=== PATIENT | male | born 1955 | race Caucasian/White ===

== ENCOUNTER → 2016-10-23 | Outpatient (CLI) | payer BC ==
[~2016-10-23] MED LIST: ASPCH81; CEPH500C PO; MULT-506 PO; OMEG10007 PO; TRAM-10 PO; [UNRECOGNIZED DRUG - REMARK]; [UNRECOGNIZED DRUG - REMARK]
--- NOTE | 2016-10-23 17:24 | DIAGNOSTIC IMAGING REPORT ---
RIGHT LOWER EXTREMITY VENOUS DOPPLER HISTORY: R60.0 Leg edema right [id number] Right COMPARISON STUDY: None. FINDINGS: There is normal compressibility, flow, and augmentation within the right lower extremity deep venous system. Complex popliteal cyst extending into the proximal calf which measures 8.3 x 1.4 x 3.8 cm. IMPRESSION: No DVT within the right lower extremity. Complex popliteal cyst. Electronically signed by: Moses Ham M.D. 10/23/2016 5:21 PM Dictated Date/Time: 10/23/2016 5:03 PM
== END | disposition home or self-care (01) ==
LOC: C.ULTR 16:17
PROVIDERS: ATTEND Physician Assistant Medical
DX: R60.0 Localized edema (principal); M71.21 Synovial cyst of popliteal space [Baker], right knee

== ENCOUNTER → 2017-04-03 | Outpatient (CLI) | payer BC ==
[2017-04-03 09:44] LABS: BASO % 0.4 %; BASO ABS # 0.02 K/uL (0-0.2); COMPLETE YES; EOS % 1.7 %; HEMATOCRIT 44.6 % (42-52); IG% 0.2 %; LYMPH % 18.7 %; LYMPH ABS # 0.98 K/uL (1.2-3.4); MEAN CELL VOLUME 90.5 fL (80-100); MEAN CORPUSCULAR HEMOGLOBIN 29.8 pg (25-34); MEAN PLATELET VOLUME 9.6 fL (7.4-10.4); PLATELET COUNT 212 K/uL (130-400); RED BLOOD COUNT 4.93 M/uL (4.7-6.1); WHITE BLOOD COUNT 5.23 K/uL (4.8-10.8)
[2017-04-03 10:07] LABS: ALT/SGPT 24 U/L (12-78); BLOOD UREA NITROGEN 20 mg/dl (7-18); BUN/CREATININE RATIO 20.3 (10-20); CARBON DIOXIDE 27 mmol/L (21-32); CHLORIDE 105 mmol/L (98-107); CHOLESTEROL 165 mg/dl (0-200); GLUCOSE 86 mg/dl (70-99); POTASSIUM 4.2 mmol/L (3.5-5.1); SODIUM 139 mmol/L (136-145)
[2017-04-03 10:13] LABS: ALB/GLOB RATIO 1.2 (0.9-2); ALKALINE PHOSPHATASE 82 U/L (45-117); AST/SGOT 16 U/L (15-37); CHOLESTEROL/HDL RATIO 2.8; HDL CHOLESTEROL 58 mg/dl; LDL CHOLESTEROL CALCULATED 89 mg/dl; TRIGLYCERIDES 91 mg/dl (0-150); VERY LOW DENSITY LIPOPROT CALC 18 mg/dl
== END | disposition home or self-care (01) ==
LOC: C.LAB 06:51
PROVIDERS: ATTEND Internal Medicine
DX: G47.33 Obstructive sleep apnea (adult) (pediatric) (principal); Z11.59 Encounter for screening for other viral diseases

== ENCOUNTER → 2017-10-23 | Outpatient (CLI) | payer OTHER, BC ==
--- NOTE | 2017-10-23 08:58 | DIAGNOSTIC IMAGING REPORT ---
R HUMERUS MIN 2 VIEWS ROUTINE CLINICAL HISTORY: 62 years-old Male presenting with RIGHT HUMERUS PAIN. TECHNIQUE: Frontal lateral views the right humerus were obtained. COMPARISON: None. FINDINGS: Glenohumeral and elbow joints grossly congruent. Osteophytosis at the inferior humeral head. No acute fracture or malalignment. Focal irregularity of the proximal humeral metadiaphysis. There is suggestion of a focal cortical lucency of mid cortical thickening. No radiographic soft tissue abnormality. IMPRESSION: Focal irregularity of the proximal metadiaphysis of the right humerus. 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 Differential considerations include posttraumatic deformity, aneurysmal bone cyst, Law sarcoma or metastatic lesion. This requires follow-up. Potential further evaluation with contrast-enhanced MR could be considered as clinically appropriate. Electronically signed by: Sagar Bartlett M.D. 10/23/2017 8:57 AM Dictated Date/Time: 10/23/2017 8:49 AM
== END | disposition home or self-care (01) ==
LOC: C.RAD1850 08:37
PROVIDERS: ATTEND Nurse Practitioner Adult Health
DX: M79.601 Pain in right arm (principal)

== ENCOUNTER 2020-03-23 21:09 | Inpatient (IN) ==
[2020-03-23] MEDS ORDERED: ACETAMINOPHEN 500 MG TAB PO STA (21:39)
[2020-03-23] MEDS ORDERED: MoRPHine SULFATE 4 MG/ML 1 ML CARP\\VIAL IV STA ×3 (22:13→23:37)
[2020-03-23] MEDS ORDERED: ONDANSETRON INJ 2 MG/ML 2 ML VIAL IV STA (22:13)
[2020-03-23 22:25] LABS: Appearance Urine Cloudy (Clear); Bacteria Urine Automated Negative (Negative); Bilirubin Urine Negative (Negative); Blood Urine 3+ (Negative); Color Urine Dark Yellow; Glucose Urine UA Negative (Negative); Ketones Urine Negative (Negative); Leukocyte Esterase Urine 1+ (Negative); Nitrite Urine Negative (Negative); Protein Urine 1+ (Negative); Specific Gravity Urine 1.021 (1.000-1.030); Urobilinogen Urine Negative (Negative)
[2020-03-23 22:31] LABS: Basophils # (auto) 0.02 K/uL (0-0.2); Basophils % (auto) 0.2 %; Eosinophils # (auto) 0.04 K/uL (0-0.5); Eosinophils % (auto) 0.4 %; Hematocrit (blood only) 39.6 % (42-52); Hemoglobin 13.9 g/dL (14.0-18.0); Immature Granulocytes # (auto) 0.03 K/uL (0.00-0.02); Immature Granulocytes % (auto) 0.3 %; Lymphocytes # (auto) 0.53 K/uL (1.2-3.4); Lymphocytes % (auto) 5.8 %; Mean Corpuscular Hemoglobin 30.8 pg (25-34); Mean Corpuscular Hgb Conc 35.1 g/dL (32-36); Mean Corpuscular Volume 87.6 fL (80-100); Monocytes # (auto) 0.79 K/uL (0.11-0.59); Monocytes % (auto) 8.7 %; Neutrophils # (auto) 7.71 K/uL (1.4-6.5); Neutrophils % (auto) 84.6 %; Platelet Count 282 K/uL (130-400); RDW Coefficient of Variation 13.5 % (11.5-14.5); RDW Standard Deviation 43.3 fL (36.4-46.3); Red Blood Count 4.52 M/uL (4.7-6.1); White Blood Count 9.12 K/uL (4.8-10.8)
[2020-03-23 22:47] LABS: Albumin Level 3.2 gm/dl (3.4-5.0); BUN Creatinine Ratio 15.4 (10-20); Calcium 9.3 mg/dl (8.5-10.1); Creatinine Clr Calc Pharmacy 79.9 ml/min; Est GFR (African American) 82.4; Est GFR (Non-African American) 71.1; Potassium 3.9 mmol/L (3.5-5.1)
[2020-03-23 22:50] LABS: Albumin Globulin Ratio 0.8 (0.9-2); Bilirubin,Total 0.9 mg/dl (0.2-1); Globulin 4.1 gm/dl (2.5-4.0); Total Protein 7.3 gm/dl (6.4-8.2)
[2020-03-23] MEDS ORDERED: cefTRIAXone SODIUM 1,000 MG/50 ML BAG IV STA (23:09)
[2020-03-23] MEDS ORDERED: SODIUM CHLORIDE 0.9% 1000ML 500 ML IV ONE (23:09)
[2020-03-23] MEDS ORDERED: IOVERSOL 100ml IV ONE (23:27)
[2020-03-24] MEDS ORDERED: MAGNESIUM HYDROXIDE SUSP 30 ML UDC PO PRN (01:21)
[2020-03-24] MEDS ORDERED: ONDANSETRON HCL 4 MG PO PRN (01:21)
[2020-03-24] MEDS ORDERED: DICLOFENAC SOD 1% GEL 100 GM TUBE EXT PRN (01:21)
[2020-03-24] MEDS ORDERED: DOCUSATE SODIUM/SENNA 50/8.6MG TAB PO SCH (01:21)
--- NOTE | 2020-03-24 01:22 | History & Physical Report ---
Date of Service March 24, 2020 Assessment & Plan (1) Ureterolithiasis: * Patient with large 8 mm LEFT UPJ stone w/ associated hydronephrosis. * Requiring escalating doses of narcotics in the emergency department. * Urinalysis appears more consistent with blood from stone versus traumatic Silvestre insertion. Received one-time dose of Rocephin in the emergency department. Will not continue antibiotics at this point. * Given the proximal nature of stone and patient's hydronephrosis with a ssociated pain, appreciate nephrology consultation for further guidance. * Continue pain management with acetaminophen and morphine as needed. * Will continue with IV fluids at 80 mL/hr at this time. * Continue with Flomax for added benefit of nephrolithiasis as well. * Silvestre catheter in place for strict I&Os. (2) Renal colic: * P.o. acetaminophen and PRN morphine as needed. (3) Acute urinary retention: * Silvestre catheter in place at this time. * Continue Flomax as tolerated. (4) Hydronephrosis: * Continue with appropriate pain management. * Continue with IV fluids. * Appreciate nephrology consultation. (5) Recent cerebrovascular accident (CVA): * Recent CVA with LEFT-sided hemiparesis currently receiving therapy at [facility]. * Will add PT OT to continue with patient's current goals of care. * Patient without special diet at this time (i.e. no restrictions on textures). * Patient was placed on aspirin and Plavix. * Will hold aspirin Plavix as well as Lovenox this morning (03/24) pending urologic evaluation. (6) Left-sided weakness: * As discussed, continue with PT OT for ongoing goals of care. History of Present Illness Primary Care Provider: [facility] Patient is a 65-year-old male with a recent past medical history of CVA on 03/07/2020 for which she was initially seen at [facility]. He received TPA and was subsequently flown to [facility] for further stroke evaluation as well as concerns for decreased pulses in his LEFT lower extremity. Patient reports that he was placed on a heparin drip for a few days and did have return of pulses and no intervention was felt necessary at that time. The patient had an approximately 5-day hospitalization where he was then transferred to [facility] for rehabilitation. He states that his Silvestre catheter had been removed at the time of discharge from [facility]. He states that he has been having some difficulty with voiding and was placed on Flomax [facility]. This was discontinued for a few days as the patient was noting some orthostatic-like symptoms during physical therapy. He did have return of difficulty with voiding and was placed back on Flomax. Yesterday, the patient was complaining of bladder pressure and inability to void. They did attempt to place a Silvestre catheter for separate times which did cause the patient to moderate amount of pain. This afternoon, the patient noticed increasing pain to the LEFT-sided flank area. This prompted transfer to the emergency department for further evaluation and management. Upon evaluation in the emergency department, the patient is awake, alert, and oriented. He states that his pain is greatly improved after administration of morphine. He reports that while at [facility], he has been told that he has been doing better, but states that "I do not see it". He does admit that he has been doing somewhat better with attempted ambulation utilizing a walker. He reports that his weakness persists in the LEFT upper extremity. He is able to lift his LEFT lower leg off the bed which is an improvement. Patient states that he has no issues with eating or drinking, specifically he is not on a special diet for this. Patient reports no prior history of kidney stones or similar pain in the past. He states that prior to CVA, he was only on a prescribed NSAID, Effexor, and atorvastatin. Patient currently denies any headaches, dizziness, lightheadedness, chest pain, palpitations, shortness of breath, nausea, vomiting, fevers, chills, or worsening extremity weakness. Allergies Allergy/AdvReac Type Severity Reaction Status Date / Time escitalopram [From Lexapro] AdvReac Drowsy Verified 03/23/20 22:35 paroxetine [From Paxil] AdvReac Drowsy Verified 03/23/20 22:35 Home Medications Home Medications Medication Instructions Recorded Confirmed Type omega 3-uon-bmv-fish oil [Fish Oil] 1 cap PO QAM 09/16/18 03/23/20 History acetaminophen [Tylenol] 650 mg PO Q4 PRN 03/23/20 03/23/20 History ascorbic acid (vitamin C) [Vitamin 500 mg PO DAILY 03/23/20 03/23/20 History C] aspirin [Aspir-81] 81 mg PO DAILY 03/23/20 03/23/20 History atorvastatin 40 mg PO HS 03/23/20 03/23/20 History clopidogrel [Plavix] 75 mg PO DAILY 03/23/20 03/23/20 History diclofenac sodium [Voltaren] 2 g TOPICAL QID PRN 03/23/20 03/23/20 History docusate sodium 100 mg PO BID 03/23/20 03/23/20 History enoxaparin [Lovenox] 40 mg SUBCUT DAILY 03/23/20 03/23/20 History lidocaine 1 patch TOPICAL DAILY 03/23/20 03/23/20 History lidocaine HCl [Lidocaine Viscous] 5 ml TOPICAL ACHS 03/23/20 03/23/20 History magnesium hydroxide [Milk of 30 ml PO DAILY PRN 03/23/20 03/23/20 History Magnesia] mecobal-levomefolat Ca-B6 phos 1 tab PO DAILY 03/23/20 03/23/20 History [Foltanx] ondansetron HCl 4 mg PO Q8H PRN 03/23/20 03/23/20 History pantoprazole 40 mg PO DAILY 03/23/20 03/23/20 History polyethylene glycol 3350 [Miralax] 17 g PO DAILY 03/23/20 03/23/20 History sennosides-docusate sodium 1 tab-cap PO .QLUNCH 03/23/20 03/23/20 History [Senokot-S] tamsulosin [Flomax] 0.4 mg PO DAILY 03/23/20 03/23/20 History venlafaxine 150 mg PO DAILY 03/23/20 03/23/20 History Past Med/Surg History Medical History Anxiety Arthritis, multiple joint involvement Depression Hyperlipidemia Hyperlipidemia Osteoarthritis Sleep apnea CPAP Surgical History H/O arthroscopic knee surgery with medial meniscus repair H/O hand surgery LEFT INDEX FINGER (TENDON REPAIR) History of colonoscopy 2013 and 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 2014 - Tubular Adenoma. 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 All else were negative. Physical Exam Physical Exam: VITAL SIGNS - Vital signs and nursing notes were reviewed. GENERAL - 65-year-old male appearing his stated age who is in no acute distress. Communicates well with provider and answers questions appropriately. HEAD - NC/AT. EYES - PERRL with EOMI bilaterally. Sclera anicteric. Palpebral conjunctiva pink and moist with no injection noted. EARS - No deformities of external structures noted on gross examination bilaterally. NOSE - Midline and without cyanosis. No epistaxis or purulent drainage noted. MOUTH/OROPHARYNX - Without perioral cyanosis. Buccal mucosa pink and moist and without leukoplakia. NECK - Neck with FROM. Supple to palpation. No nuchal rigidity. LUNGS - Chest wall symmetric without accessory muscle use, intercostals retractions, or central cyanosis. Normal vesicular breath sounds CTA B/L. No wheezes, rales, or rhonchi appreciated. CARDIAC - RRR with S1/S2. No murmur, rubs, or gallops appreciated. ABDOMEN - Abdominal contour flat without pulsations or visible masses. BS normoactive all four quadrants. No tenderness to palpation appreciated throughout. No guarding. No Rebound Tenderness. No palpable masses, hepatosplenomegaly, or ascites noted. EXTREMITIES - No clubbing or peripheral cyanosis. decreased DP pulse on the LEFT. Decreased strength in the LEFT lower extremity when compared to right. Flaccid paralysis of the LEFT upper extremity. No pretibial edema present. +3/5 radial pulses palpated throughout. NEUROLOGIC -LEFT upper extremity flaccid paralysis. Weakness of the LEFT lower extremity. Persistent LEFT-sided facial droop. Recent CVA. PSYCH - A&Ox3 and cooperates fully with examiner. Pt is very pleasant and interacts well with examiner. Results & Data Results & Data ([facility]) Vital Signs (Past 12 Hours) Vital Signs Temp Pulse Resp BP Pulse Ox 03/24/20 00:00 97 H 20 150/94 H 95 03/23/20 23:34 101 H 16 157/106 H 94 03/23/20 22:21 92 03/23/20 22:20 94 H 19 142/89 H 92 03/23/20 21:20 36.9 C 107 H 18 147/113 H 94 Code Status & VTE Plan VTE Prophylaxis Plan VTE Prophylaxis will be ordered: Yes Supervising Physician Co-Signing Physician Notes Attending addendum: I have physically seen this patient, have supervised the medical residents activities, and agree with the H&P unless as otherwise noted. Assessment and Plan: Obstructing 8 mm left UPJ stone/left hydro-ureteronephrosis- N.p.o. except meds Continue Silvestre catheter Ceftriaxone 1 g IV daily Continue Flomax Acetaminophen 650 mg p.o. every 6 hours mild pain or temperature Morphine IV as needed severe pain Hold aspirin and Plavix. Consult nephrology CVA/left-sided hemiparesis- Patient has been at [facility] getting rehab. We will consult PT/OT while patient is here. Temporarily of aspirin and Plavix on hold Remainder of orders and notations as noted PG Care Time/CCT Total # of Minutes Spent Total Time Spent with Patient: Total time spent is greater than 50% in coordination of care (as documented) at patient's floor/unit and/or counseling patient: Coding Level of Care Code 47200 Initial Inpt Care Lvl 3 Diagnoses Ureterolithiasis N20.1 Renal colic N23 Acute urinary retention R33.8 Hydronephrosis Q62.11 Hydronephrosis type: with ureteropelvic junction obstruction Recent cerebrovascular accident (CVA) Z86.73 Left-sided weakness R53.1 Time Spent (min) 45 (1) Hydronephrosis Hydronephrosis type: with ureteropelvic junction obstruction Qualified Code(s): Q62.11 - Congenital occlusion of ureteropelvic junction
--- NOTE | 2020-03-24 01:34 | Emergency Department Note ---
History of Present Illness General Chief complaint: Unable to Void Stated complaint: abd pain / encompass Time Seen by Provider: 03/23/20 21:27 History of Present Illness Maximum Pain Intensity: 3 This 65-year-old presents to the ER complaining of unable to urinate Location: Bladder Quality: Uncomfortable Severity: Moderate Duration: Today Timing: Today Context: group home could not get the Silvestre and sent the patient in Modifying factors: better with nothing; worse with palpation Patient had his Silvestre removed this morning. Has not been able to urinate. Patient well examined and developed back pain. Patient denies chest pain, dyspnea, fevers, vomiting, diarrhea. Patient had a stroke and is currently in rehab. He has left-sided weakness unchanged. Home Medications Home Medications Medication Instructions Recorded Confirmed Type omega 8-taj-qjs-fish oil [Fish Oil] 1 cap PO QAM 09/16/18 03/23/20 History acetaminophen [Tylenol] 650 mg PO Q4 PRN 03/23/20 03/23/20 History ascorbic acid (vitamin C) [Vitamin 500 mg PO DAILY 03/23/20 03/23/20 History C] aspirin [Aspir-81] 81 mg PO DAILY 03/23/20 03/23/20 History atorvastatin 40 mg PO HS 03/23/20 03/23/20 History clopidogrel [Plavix] 75 mg PO DAILY 03/23/20 03/23/20 History diclofenac sodium [Voltaren] 2 g TOPICAL QID PRN 03/23/20 03/23/20 History docusate sodium 100 mg PO BID 03/23/20 03/23/20 History enoxaparin [Lovenox] 40 mg SUBCUT DAILY 03/23/20 03/23/20 History lidocaine 1 patch TOPICAL DAILY 03/23/20 03/23/20 History lidocaine HCl [Lidocaine Viscous] 5 ml TOPICAL ACHS 03/23/20 03/23/20 History magnesium hydroxide [Milk of 30 ml PO DAILY PRN 03/23/20 03/23/20 History Magnesia] mecobal-levomefolat Ca-B6 phos 1 tab PO DAILY 03/23/20 03/23/20 History [Foltanx] ondansetron HCl 4 mg PO Q8H PRN 03/23/20 03/23/20 History pantoprazole 40 mg PO DAILY 03/23/20 03/23/20 History polyethylene glycol 3350 [Miralax] 17 g PO DAILY 03/23/20 03/23/20 History sennosides-docusate sodium 1 tab-cap PO .QLUNCH 03/23/20 03/23/20 History [Senokot-S] tamsulosin [Flomax] 0.4 mg PO DAILY 03/23/20 03/23/20 History venlafaxine 150 mg PO DAILY 03/23/20 03/23/20 History Allergies Allergy/AdvReac Type Severity Reaction Status Date / Time escitalopram [From Lexapro] AdvReac Drowsy Verified 03/23/20 22:35 paroxetine [From Paxil] AdvReac Drowsy Verified 03/23/20 22:35 Past Med/Surg History Medical History Anxiety Arthritis, multiple joint involvement Depression Hyperlipidemia Hyperlipidemia Osteoarthritis Sleep apnea CPAP Surgical History H/O arthroscopic knee surgery with medial meniscus repair H/O hand surgery LEFT INDEX FINGER (TENDON REPAIR) History of colonoscopy 2013 and 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 2014 - Tubular Adenoma. History of repair of rotator cuff RT History of tooth extraction S/P foot surgery right-05/06/2019 Family History Son Type 1 diabetes Mother Breast cancer Dyslipidemia Father Myocardial infarction Stroke Ischemic dilated cardiomyopathy Brother Hypertension Denies family history of Ovarian cancer Prostate cancer Colorectal cancer Social History Smoking Status: Former smoker Second Hand Exposure: No; Hx Alcohol Use: Yes Alcohol type: beer Hx Substance Use: No Preferred Language: Cymraes Communication Ability: Effective Visual Impairment: No Limitations Hearing Ability: Normal Data Visualization Developer Required: No Beliefs That Will Affect Care: None marital status: Current Living Situation: Spouse current occupational status: retired Feels Safe at Home: Yes caffeine: Yes (coffee 1 per day soda 1 per day.) during the past year weight has: remained stable Dental Care, Regularly: Yes Physical Activity Frequency: Does not Exercise Seatbelt Use: always Sunscreen Use: No Review of Systems A total of 10 systems reviewed and were otherwise negative Physical Exam Vital Signs Vital Signs - 24 hr 03/23/20 21:20 03/23/20 22:20 03/23/20 22:21 Temperature 36.9 C Temperature Source Oral Pulse Rate 107 H 94 H Pulse Rate from SpO2 Sensor 93 H Respiratory Rate 18 19 Respiratory Depth Normal Blood Pressure 147/113 H 142/89 H Blood Pressure Mean 124 110 Pulse Oximetry 94 92 92 Oxygen Delivery Method Room Air Room Air Room Air Oxygen Flow Rate Sepsis Recent Fever Within 48 Hours No Sepsis New/Unexplained Change in Mental Status N/A Sepsis Action Taken by Nursing No Action Required 03/23/20 23:34 03/24/20 00:00 Temperature Temperature Source Pulse Rate 101 H 97 H Pulse Rate from SpO2 Sensor 101 H 95 H Respiratory Rate 16 20 Respiratory Depth Blood Pressure 157/106 H 150/94 H Blood Pressure Mean 116 109 Pulse Oximetry 94 95 Oxygen Delivery Method Room Air Nasal Cannula Oxygen Flow Rate 2 Sepsis Recent Fever Within 48 Hours Sepsis New/Unexplained Change in Mental Status Sepsis Action Taken by Nursing VITALS: Vitals are noted on the nurse's note and reviewed by myself. Vital signs stable. GENERAL: Pleasant male who appears uncomfortable, in no acute distress, nondiaphoretic, well-developed well-nourished. SKIN: Capillary reflex less than 2 seconds. HEENT: Normocephalic. PERRLA. EOMI. Nares patent. Mucous membranes moist. Neck is supple without nuchal rigidity. HEART: Regular rate and rhythm LUNGS: Clear to auscultation bilaterally without wheezes, rales or rhonchi. No retractions or accessory muscle use. ABDOMEN: Positive bowel sounds x 4. Normal tympanic percussion. Soft, distended bladder, nontender, without masses or organomegaly. Decker sign nega tive. No guarding or rebound tenderness. No CVA tenderness MUSCULOSKELETAL: No gross musculoskeletal defects. NEURO: Patient was alert and oriented to person place and time. No focal neurological deficits. Course Administered Medications Discontinued Medications Acetaminophen (Acetaminophen 500 Mg Tab) 1,000 mg PO NOW STA Stop: 03/23/20 21:40 Last Admin: 03/23/20 21:59 Dose: 1,000 mg Documented by: [id number] Sodium Chloride (Nss 1000ml) 500 mls @ 999 mls/hr IV .Q31M ONE Stop: 09/18/20 23:39 Last Infusion: 03/24/20 00:03 Dose: 0 mls/hr Documented by: [id number] Admin: 03/23/20 23:32 Dose: 999 mls/hr Documented by: [id number] Ceftriaxone Sodium (Rocephin) 1,000 mg in 50 mls @ 100 mls/hr IV NOW STA Stop: 03/23/20 23:38 Last Infusion: 03/24/20 00:02 Dose: 0 mls/hr Documented by: [id number] Admin: 03/23/20 23:32 Dose: 100 mls/hr Documented by: [id number] Ioversol (Ioversol 100ml) 94 ml IV ONCE ONE Stop: 03/23/20 23:28 Last Admin: 03/23/20 23:28 Dose: 94 ml Documented by: [id number] Morphine Sulfate (Morphine Sulfate 4 Mg/Ml 1 Ml Carp\Vial) 4 mg IV NOW STA Stop: 03/23/20 22:14 Last Admin: 03/23/20 22:20 Dose: 4 mg Documented by: [id number] Morphine Sulfate (Morphine Sulfate 4 Mg/Ml 1 Ml Carp\Vial) 4 mg IV NOW STA Stop: 03/23/20 23:38 Last Admin: 03/23/20 23:43 Dose: 4 mg Documented by: [id number] Ondansetron HCl (Ondansetron Inj 2 Mg/Ml 2 Ml Vial) 4 mg IV NOW STA Stop: 03/23/20 22:14 Last Admin: 03/23/20 22:20 Dose: 4 mg Documented by: [id number] Medical Decision Making Medical Records Attestation: I reviewed the patient's medical records. Home Medications Current Medication List: was personally reviewed by me Laboratory Data Attestation: I reviewed the patient's lab results. Result diagrams: 03/23/20 22:22 03/23/20 22:22 Lab Results 03/23/20 03/23/20 03/23/20 Range/Units 21:35 22:22 22:22 WBC 9.12 (4.8-10.8) K/uL RBC 4.52 L (4.7-6.1) M/uL Hgb 13.9 L (14.0-18.0) g/dL Hct 39.6 L (42-52) % MCV 87.6 (80-100) fL MCH 30.8 (25-34) pg MCHC 35.1 (32-36) g/dL RDW Std Deviation 43.3 (36.4-46.3) fL RDW Coeff of Reba 13.5 (11.5-14.5) % Plt Count 282 (130-400) K/uL MPV 9.0 (7.4-10.4) fL Immature Gran % (Auto) 0.3 % Neut % (Auto) 84.6 % Lymph % (Auto) 5.8 % Spink % (Auto) 8.7 % Eos % (Auto) 0.4 % Baso % (Auto) 0.2 % Neut # (Auto) 7.71 H (1.4-6.5) K/uL Lymph # (Auto) 0.53 L (1.2-3.4) K/uL Spink # (Auto) 0.79 H (0.11-0.59) K/uL Eos # (Auto) 0.04 (0-0.5) K/uL Baso # (Auto) 0.02 (0-0.2) K/uL Immature Gran # (Auto) 0.03 H (0.00-0.02) K/uL Sodium 138 (136-145) mmol/L Potassium 3.9 (3.5-5.1) mmol/L Chloride 104 (98-107) mmol/L Carbon Dioxide 24 (21-32) mmol/L Anion Gap 10.0 (3-11) BUN 17 (7-18) mg/dl Creatinine 1.10 (0.6-1.4) mg/dl Est Cr Clr Drug Dosing 79.9 ml/min Est GFR ( Amer) 82.4 Est GFR (Non-Af Amer) 71.1 BUN/Creatinine Ratio 15.4 (10-20) Glucose 143 H (70-99) mg/dl Lactate (0.4-2.0) mmol/L Calcium 9.3 (8.5-10.1) mg/dl Total Bilirubin 0.9 (0.2-1) mg/dl AST 16 (15-37) U/L ALT 22 (12-78) U/L Alkaline Phosphatase 97 (45-117) U/L Total Protein 7.3 (6.4-8.2) gm/dl Albumin 3.2 L (3.4-5.0) gm/dl Globulin 4.1 H (2.5-4.0) gm/dl Albumin/Globulin Ratio 0.8 L (0.9-2) Urine Color Dark Yellow Urine Appearance Cloudy A (Clear) Urine pH 5.0 (4.5-7.5) Ur Specific [place] 1.021 (1.000-1.030) Urine Protein 1+ H (Negative) Urine Glucose (UA) Negative (Negative) Urine Ketones Negative (Negative) Urine Blood 3+ H (Negative) Urine Nitrite Negative (Negative) Urine Bilirubin Negative (Negative) Urine Urobilinogen Negative (Negative) Ur Leukocyte Esterase 1+ H (Negative) Urine WBC (Auto) 10-30 H (0-5) /hpf Urine RBC (Auto) 10-30 H (0-4) /hpf U Hyaline Cast (Auto) 1-5 (0-5) /lpf U Epithel Cells (Auto) 5-10 H (0-5) /lpf Urine Bacteria (Auto) Negative (Negative) 03/24/20 Range/Units 00:21 WBC (4.8-10.8) K/uL RBC (4.7-6.1) M/uL Hgb (14.0-18.0) g/dL Hct (42-52) % MCV (80-100) fL MCH (25-34) pg MCHC (32-36) g/dL RDW Std Deviation (36.4-46.3) fL RDW Coeff of Reba (11.5-14.5) % Plt Count (130-400) K/uL MPV (7.4-10.4) fL Immature Gran % (Auto) % Neut % (Auto) % Lymph % (Auto) % Spink % (Auto) % Eos % (Auto) % Baso % (Auto) % Neut # (Auto) (1.4-6.5) K/uL Lymph # (Auto) (1.2-3.4) K/uL Spink # (Auto) (0.11-0.59) K/uL Eos # (Auto) (0-0.5) K/uL Baso # (Auto) (0-0.2) K/uL Immature Gran # (Auto) (0.00-0.02) K/uL Sodium (136-145) mmol/L Potassium (3.5-5.1) mmol/L Chloride (98-107) mmol/L Carbon Dioxide (21-32) mmol/L Anion Gap (3-11) BUN (7-18) mg/dl Creatinine (0.6-1.4) mg/dl Est Cr Clr Drug Dosing ml/min Est GFR ( Amer) Est GFR (Non-Af Amer) BUN/Creatinine Ratio (10-20) Glucose (70-99) mg/dl Lactate 0.7 (0.4-2.0) mmol/L Calcium (8.5-10.1) mg/dl Total Bilirubin (0.2-1) mg/dl AST (15-37) U/L ALT (12-78) U/L Alkaline Phosphatase (45-117) U/L Total Protein (6.4-8.2) gm/dl Albumin (3.4-5.0) gm/dl Globulin (2.5-4.0) gm/dl Albumin/Globulin Ratio (0.9-2) Urine Color Urine Appearance (Clear) Urine pH (4.5-7.5) Ur Specific [place] (1.000-1.030) Urine Protein (Negative) Urine Glucose (UA) (Negative) Urine Ketones (Negative) Urine Blood (Negative) Urine Nitrite (Negative) Urine Bilirubin (Negative) Urine Urobilinogen (Negative) Ur Leukocyte Esterase (Negative) Urine WBC (Auto) (0-5) /hpf Urine RBC (Auto) (0-4) /hpf U Hyaline Cast (Auto) (0-5) /lpf U Epithel Cells (Auto) (0-5) /lpf Urine Bacteria (Auto) (Negative) Imaging Data Attestation: I personally reviewed and interpreted this imaging study as follows: Blood Pressure Blood Pressure Findings: Elevated blood pressure Blood Pressure Disposition: Referred to patients primary care provider MDM Narrative Prior records/ancillary studies reviewed. Triage Nursing notes reviewed.. The patient's history was concerning for abdominal pain. Differential diagnosis: Etiologies such as appendicitis, diverticulitis, PUD, biliary pathology, UTI, pancreatitis, obstruction, mesenteric ischemia, aortic pathology, infections, inflammatory bowel disease, renal colic, as well as others were entertained. Physical examination findings: As above. ER treatment provided: An order was placed for continuous cardiac monitoring. The monitor shows a rate of 60-100 with a sinus rhythm. Silvestre catheter, Rocephin, morphine On reassessment the patient felt better. Diagnostics interpreted by me: The labs revealed no leukocytosis. Negative lactic acid. Blood cultures pending Urine concerning for infection and sent for culture Imaging studies: CT ABDOMEN & PELVIS With Contrast: Mild left-sided hydronephrosis and delayed nephrogram on the left due to an 8 mm calculus in the left ureteropelvic junction. 11 mm hyperdense cyst extending off the mid left kidney. Recommend 4 month follow-up to document stability. The urinary bladder is decompressed by Silvestre catheter. Bowel loops are nondilated. No pneumoperitoneum, free fluid, or focal inflammatory changes are seen involving the bowel. Moderate degenerative changes throughout the lumbar spine. No acute fracture or subluxation is seen. Radiologist: Frank Uriarte MD Consultation: A consultation was placed with Dr. Gomez. The case was discussed and diagnostics were reviewed. The patient was evaluated in the ER for further treatment. Exam and history seem consistent with urinary retention with infected stone. Patient started antibiotics. Culture was sent. Patient felt better after the Silvestre. Patient will be evaluated for admission. By the evaluation outlined above emergent etiologies such as appendicitis, diverticulitis, PUD, biliary pathology, pancreatitis, obstruction, mesenteric ischemia, aortic pathology inflammatory bowel disease, as well as others were deemed relatively unlikely. The pt informed about the findings as listed above. All questions were answered and pleased with the treatment. The chart was completed utilizing [employer] Speech voice recognition software. Grammatical errors, random word insertions, pronoun errors, and incomplete sentences are an occassional consequence of this system due to software limitations, ambient noise, and hardware issues. Any formal questions or concerns about the content, text, or information contained within the body of this dictation should be directly addressed to the physician bilingual sales assistant for clarification. Impression & Plan Acute urinary retention, Acute UTI, Renal colic, Ureterolithiasis Discharge Plan Visit Data Chief Complaint: Unable to Void Stated Complaint: abd pain / encompass ED Provider: Doron Dooley ED Midlevel Provider: Daniela Reyes Discharge Problem: Acute urinary retention, Acute UTI, Renal colic, Ureterolithiasis Patient Disposition: Admitted As Inpatient Condition: Good Forms Stand Alone Forms: [facility] Prescriptions Prescriptions: No Action omega 9-evo-plk-fish oil [Fish Oil] 1,000 mg (120 mg-180 mg) Capsule 1 cap PO QAM RF: 0 atorvastatin 40 mg Tablet 40 mg PO HS RF: 0 acetaminophen [Tylenol] 325 mg Tablet 650 mg PO Q4 PRN (Reason: Pain) RF: 0 ondansetron HCl 4 mg Tablet 4 mg PO Q8H PRN (Reason: Nausea) RF: 0 venlafaxine 150 mg capsule,extended release 24hr 150 mg PO DAILY RF: 0 clopidogrel [Plavix] 75 mg Tablet 75 mg PO DAILY RF: 0 aspirin [Aspir-81] 81 mg Tablet,Delayed Release (Dr/Ec) 81 mg PO DAILY RF: 0 magnesium hydroxide [Milk of Magnesia] 400 mg/5 mL Suspension 30 ml PO DAILY PRN (Reason: Constipation) RF: 0 ascorbic acid (vitamin C) [Vitamin C] 500 mg Tablet 500 mg PO DAILY RF: 0 pantoprazole 40 mg Tablet,Delayed Release (Dr/Ec) 40 mg PO DAILY RF: 0 lidocaine 5 % Adhesive Patch,Medicated 1 patch TOPICAL DAILY RF: 0 docusate sodium 100 mg Capsule 100 mg PO BID RF: 0 Lidocaine Viscous 2 % Solution 5 ml topical ACHS RF: 0 enoxaparin [Lovenox] 40 mg/0.4 mL Syringe 40 mg SUBCUT DAILY RF: 0 diclofenac sodium [Voltaren] 1 % Gel 2 g TOPICAL QID PRN (Reason: Pain) RF: 0 Foltanx 3-35-2 mg Tablet 1 tab PO DAILY RF: 0 polyethylene glycol 3350 [Miralax] 17 gram Powder In Packet 17 g PO DAILY RF: 0 sennosides-docusate sodium [Senokot-S] 8.6-50 mg Tablet 1 tab-cap PO .QLUNCH RF: 0 tamsulosin [Flomax] 0.4 mg Capsule 0.4 mg PO DAILY RF: 0 Referrals Referrals: [facility] [Primary Care Provider] -
[2020-03-24] MEDS ORDERED: ONDANSETRON INJ 2 MG/ML 2 ML VIAL IV PRN ×3 (02:39→11:03)
[2020-03-24] MEDS ORDERED: MoRPHine SULFATE 4 MG/ML 1 ML CARP\\VIAL IV PRN (02:39)
[2020-03-24] MEDS ORDERED: ONDANSETRON 4 MG OD TAB PO PRN (02:49)
[2020-03-24] MEDS: MoRPHine SULFATE 4 MG/ML 1 ML CARP\\VIAL IV PRN ×2 (02:59→09:25)
[2020-03-24] MEDS: SODIUM CHLORIDE 0.9% 1000ML 1,000 ML IV SCH ×3 (04:03→19:26)
[2020-03-24] MEDS ORDERED: CIPROFLOXACIN / D5W 400 MG/200 ML BAG IV SCH (06:00)
[2020-03-24 06:31] LABS: Basophils # (auto) 0.03 K/uL (0-0.2); Basophils % (auto) 0.3 %; Eosinophils # (auto) 0.05 K/uL (0-0.5); Eosinophils % (auto) 0.5 %; Hematocrit (blood only) 39.9 % (42-52); Hemoglobin 13.5 g/dL (14.0-18.0); Immature Granulocytes # (auto) 0.03 K/uL (0.00-0.02); Immature Granulocytes % (auto) 0.3 %; Lymphocytes # (auto) 0.59 K/uL (1.2-3.4); Lymphocytes % (auto) 6.4 %; Mean Corpuscular Hemoglobin 30.1 pg (25-34); Mean Corpuscular Hgb Conc 33.8 g/dL (32-36); Mean Corpuscular Volume 89.1 fL (80-100); Mean Platelet Volume 8.8 fL (7.4-10.4); Monocytes # (auto) 1.09 K/uL (0.11-0.59); Monocytes % (auto) 11.8 %; Neutrophils # (auto) 7.41 K/uL (1.4-6.5); Neutrophils % (auto) 80.7 %; Platelet Count 256 K/uL (130-400); RDW Coefficient of Variation 13.5 % (11.5-14.5); RDW Standard Deviation 44.2 fL (36.4-46.3); Red Blood Count 4.48 M/uL (4.7-6.1)
[2020-03-24 07:06] LABS: BUN Creatinine Ratio 12.8 (10-20); Calcium 9.1 mg/dl (8.5-10.1); Creatinine Clr Calc Pharmacy 65.6 ml/min; Est GFR (African American) 64.9; Magnesium 2.2 mg/dl (1.8-2.4); Potassium 4.1 mmol/L (3.5-5.1)
[2020-03-24 07:07] LABS: Phosphorus 5.2 mg/dl (2.5-4.9)
--- NOTE | 2020-03-24 08:41 | CT Scan Report ---
CT SCAN OF THE ABDOMEN AND PELVIS WITH IV CONTRAST CLINICAL HISTORY: Left flank pain. Left lower quadrant abdominal pain. COMPARISON STUDY: No priors. TECHNIQUE: Following the IV administration of 94 cc of Optiray 320, CT scan of the abdomen and pelvi s is performed from the lung bases to the proximal femora. Images are reviewed in the axial, sagittal , and coronal planes. IV contrast was administered without complication. A dose lowering technique wa s utilized adhering to the principles of ALARA. There is motion artifact, as well as streak artifact from the left arm which could not be elevated above the abdomen. CT DOSE: 740.03 mGy.cm FINDINGS: Lung bases: The heart is normal in size and without pericardial effusion. There is bibasilar scarring /atelectasis. No airspace consolidation or pleural effusion is identified. There is a small hiatal he rnia. Liver: The contrast-enhanced liver is mildly enlarged measuring 20.1 cm in length. The liver is other sue normal in contour and attenuation. There is no intrahepatic biliary ductal dilatation. The hepat ic veins and portal veins are patent. Gallbladder: Gallbladder is mildly distended but otherwise normal in appearance. Spleen: The spleen is mildly enlarged measuring 14.3 cm in length. Pancreas: Mildly atrophic and grossly unremarkable. Adrenal glands: Unremarkable. Kidneys: The contrast enhanced kidneys are normal in size. There is a 10 mm obstructing calculus in t he left proximal ureter located just below the ureteropelvic junction as seen on image #196. This is at the level of L3 and causes moderate left hydronephrosis. There is associated left-sided perinephri c stranding and trace fluid. No additional left renal calculi are clearly identified on this contrast -enhanced examination. A 4 mm calculus is seen in the right upper pole. There is no right-sided hydro nephrosis. There is heterogeneous enhancement of the left kidney as compared the right. A 1.3 cm enha ncing lesion is identified along the posterior aspect of the interpolar left kidney on image #181. Abdominal vasculature: The abdominal aorta is normal in course and caliber noting mild atheroscleroti c calcification. Bowel: There is no bowel obstruction. The appendix is well-visualized and normal. Peritoneum: There is no intraperitoneal free air or abdominal ascites. There is a large fat-containin g umbilical hernia. Lymphadenopathy: None. Pelvic viscera: The bladder is decompressed around a Silvestre catheter and cannot be evaluated. Small fo ci of intraluminal gas are likely related to instrumentation. The prostate gland is mildly enlarged a nd heterogeneous. There are bilateral fat-containing inguinal hernias. Skeletal structures: The skeletal structures are osteopenic. There is moderate lumbosacral spondylosi s and mild scoliosis. No lytic or blastic lesions are seen. IMPRESSION: 1. There is a 10 mm obstructing calculus in the left proximal ureter. This causes [id number] le ft-sided hydronephrosis. 2. No additional left renal calculi are clearly identified. 3. There is a nonobstructing right renal calculus. 4. A 1.3 cm enhancing lesion arising from the posterior interpolar left kidney. Renal cell carcinoma is the diagnosis of exclusion. Follow-up with urology is recommended. Consider correlation with a osiris al protocol CT or MRI for further assessment. 5. There is heterogeneous enhancement of the left kidney, likely related to hydronephrosis/obstructio n. Correlation with urinalysis will be required. 6. Additional findings as above. ACT 112: Negative or not required by law. Electronically signed by: Morteza Hickye M.D. 03/24/2020 8:39 AM
[2020-03-24] MEDS ORDERED: OMEGA DHA EPA FISH OIL PO SCH (09:00)
[2020-03-24] MEDS ORDERED: ENOXAPARIN INJ 40 MG/0.4 ML SYR SQ SCH (09:00)
[2020-03-24] MEDS ORDERED: [UNRECOGNIZED DRUG - OTHER] PO SCH (09:00)
[2020-03-24] MEDS: DOCUSATE SODIUM 100 MG CAP PO SCH ×2 (09:27→20:32)
[2020-03-24] MEDS: ACETAMINOPHEN 325 MG TAB PO PRN ×2 (09:27→14:05)
[2020-03-24] MEDS: POLYETHYLENE (MIRALAX) 17 GM PACK PO SCH (09:28)
[2020-03-24] MEDS: VENLAFAXINE HCL XR 150 MG CAPXR PO SCH (09:29)
[2020-03-24] MEDS: ASCORBIC ACID 500 MG TAB PO SCH (09:29)
[2020-03-24] MEDS: PANTOprazole 40 MG TAB PO SCH (09:29)
[2020-03-24] MEDS: OMEGA-3 (PURIFIED FISH OIL) 1 GM CAP PO SCH (09:29)
[2020-03-24] MEDS: TAMSULOSIN HCL 0.4 MG CAP PO SCH (09:29)
[2020-03-24] MEDS: LIDOCAINE 5% 1 PATCH TD SCH (09:30)
--- NOTE | 2020-03-24 10:15 | Urology Consultation ---
Date of Consultation March 24, 2020 Assessment & Plan (1) Renal mass: patient will need outpatient MRI to further characterize the lesion after the patient has been treated for the stone. Present on Admission?: Yes (2) Acute urinary retention: Leave meeks at this time - likely related to recent CVA Present on Admission?: Yes (3) Ureterolithiasis: Patient to OR for stent. Patient will need outpatient surgery in the future for resolution of the stone. Present on Admission?: Yes History of Present Illness Reason for Consultation: left ureteral stone -- Patient reports difficulty with urination s/p CVA. He came to the ER last night because they couldn't straight cath him at rehab. He has been on and off flomax the last few weeks. He reports that they did place a catheter. He continued with pain. He was imaged and the scan shows a 1cm stone at the left UPJ with hydronephrosis. He also has a questionable 1.3cm renal mass on the posterior aspect of the left kidney. He reports chills this AM. No fevers here. He does have pain on his LUQ. He has not eaten since yesterday at lunch. He denies nausea or vomiting. No SOB or CP. No difficulty swallowing s/p CVA. He has otherwise been fairly healthy in the past. Attending Physician: Dominick Toscano Allergies Allergy/AdvReac Type Severity Reaction Status Date / Time escitalopram [From Lexapro] AdvReac Drowsy Verified 03/23/20 22:35 paroxetine [From Paxil] AdvReac Drowsy Verified 03/23/20 22:35 Home Medications Home Medications Medication Instructions Recorded Confirmed Type omega 1-kye-mag-fish oil [Fish Oil] 1 cap PO QAM 09/16/18 03/23/20 History acetaminophen [Tylenol] 650 mg PO Q4 PRN 03/23/20 03/23/20 History ascorbic acid (vitamin C) [Vitamin 500 mg PO DAILY 03/23/20 03/23/20 History C] aspirin [Aspir-81] 81 mg PO DAILY 03/23/20 03/23/20 History atorvastatin 40 mg PO HS 03/23/20 03/23/20 History clopidogrel [Plavix] 75 mg PO DAILY 03/23/20 03/23/20 History diclofenac sodium [Voltaren] 2 g TOPICAL QID PRN 03/23/20 03/23/20 History docusate sodium 100 mg PO BID 03/23/20 03/23/20 History enoxaparin [Lovenox] 40 mg SUBCUT DAILY 03/23/20 03/23/20 History lidocaine 1 patch TOPICAL DAILY 03/23/20 03/23/20 History lidocaine HCl [Lidocaine Viscous] 5 ml TOPICAL ACHS 03/23/20 03/23/20 History magnesium hydroxide [Milk of 30 ml PO DAILY PRN 03/23/20 03/23/20 History Magnesia] mecobal-levomefolat Ca-B6 phos 1 tab PO DAILY 03/23/20 03/23/20 History [Foltanx] ondansetron HCl 4 mg PO Q8H PRN 03/23/20 03/23/20 History pantoprazole 40 mg PO DAILY 03/23/20 03/23/20 History polyethylene glycol 3350 [Miralax] 17 g PO DAILY 03/23/20 03/23/20 History sennosides-docusate sodium 1 tab-cap PO .QLUNCH 03/23/20 03/23/20 History [Senokot-S] tamsulosin [Flomax] 0.4 mg PO DAILY 03/23/20 03/23/20 History venlafaxine 150 mg PO DAILY 03/23/20 03/23/20 History Patient History Medical History Anxiety Arthritis, multiple joint involvement Depression Hyperlipidemia Hyperlipidemia Osteoarthritis Sleep apnea CPAP Surgical History H/O arthroscopic knee surgery with medial meniscus repair H/O hand surgery LEFT INDEX FINGER (TENDON REPAIR) History of colonoscopy 2013 and 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 2014 - Tubular Adenoma. History of repair of rotator cuff RT History of tooth extraction S/P foot surgery right-05/06/2019 Family History Son Type 1 diabetes Mother Breast cancer Dyslipidemia Father Myocardial infarction Stroke Ischemic dilated cardiomyopathy Brother Hypertension Denies family history of Ovarian cancer Prostate cancer Colorectal cancer Social History Smoking Status: Former smoker Second Hand Exposure: No; Hx Alcohol Use: Yes Alcohol type: beer Hx Substance Use: No Preferred Language: Ecuadorean Communication Ability: Effective Visual Impairment: No Limitations Hearing Ability: Normal Coffee Maker Required: No Beliefs That Will Affect Care: None marital status: Current Living Situation: Spouse current occupational status: retired Feels Safe at Home: Yes caffeine: Yes (coffee 1 per day soda 1 per day.) during the past year weight has: remained stable Dental Care, Regularly: Yes Physical Activity Frequency: Does not Exercise Seatbelt Use: always Sunscreen Use: No Review of Systems Review of Systems: All systems reviewed & are unremarkable except as noted in Subjective Physical Exam Physical Exam: NAD, OR x 3 nonlabored breathing soft, + tenderness meeks with clear urine Moving ext + facial droop no lower extremity edema Results & Data ([facility]) Vital Signs (Past 12 Hours) Vital Signs Temp Pulse Pulse Pulse Resp BP BP 03/24/20 09:25 37.6 C H 03/24/20 07:32 79 03/24/20 07:26 37.2 C 85 19 151/88 H 03/24/20 05:13 73 03/24/20 04:53 37.1 C 88 18 176/98 H 03/24/20 02:00 85 17 167/100 H 03/24/20 01:30 85 17 152/92 H 03/24/20 01:00 88 21 149/88 H 03/24/20 00:30 86 18 138/85 03/24/20 00:00 97 H 20 150/94 H 03/23/20 23:34 101 H 16 157/106 H 03/23/20 22:21 03/23/20 22:20 94 H 19 142/89 H Pulse Ox 03/24/20 09:25 03/24/20 07:32 03/24/20 07:26 96 03/24/20 05:13 03/24/20 04:53 95 03/24/20 02:00 96 03/24/20 01:30 95 03/24/20 01:00 94 03/24/20 00:30 93 03/24/20 00:00 95 03/23/20 23:34 94 03/23/20 22:21 92 03/23/20 22:20 92 PG Care Time/CCT Total # of Minutes Spent Total Time Spent with Patient: Total time spent is greater than 50% in coordination of care (as documented) at patient's floor/unit and/or counseling patient: Coding Level of Care Code 50027 Inpt Consult Level 4 Diagnoses Renal mass N28.89 Acute urinary retention R33.8 Ureterolithiasis N20.1
--- NOTE | 2020-03-24 10:15 | History & Physical Bridge Note ---
Date of Service March 24, 2020 History & Physical Bridge Note I have examined the patient, reviewed the History & Physical and in the interval since the performance of the History & Physical I have noted the following changes of clinical significance: no changes noted
[2020-03-24] MEDS ORDERED: LIDOCAINE HCL 2% 2 ML VIAL/AMP(20MG/ML) INFIL ONE (10:21)
[2020-03-24] MEDS ORDERED: MIDAZOLAM HCL 1 MG/ML 2ML VIAL ONE (10:21)
[2020-03-24] MEDS ORDERED: PROPOFOL IV EMULSION 10 MG/ML 20 ML VIAL IV ONE ×2 (10:21→11:21)
[2020-03-24] MEDS ORDERED: fentaNYL citrate 100 MCG/2 ML VIAL ONE (10:21)
[2020-03-24] MEDS ORDERED: ATROPINE SULFATE 0.1 MG/ML 10ML SYR IV PRN ×2 (10:53→11:03)
[2020-03-24] MEDS ORDERED: PROMETHAZINE HCL 12.5 MG in SODIUM CHLORIDE 0.9% 50 ML IV PRN (10:53)
[2020-03-24] MEDS ORDERED: fentaNYL citrate 100 MCG/2 ML VIAL IV PRN ×2 (10:53→11:03)
[2020-03-24] MEDS ORDERED: ePHEDrine sulfate 50 MG/ML AMP IV PRN ×2 (10:53→11:03)
--- NOTE | 2020-03-24 10:53 | Anesthesiology Consultation ---
Date of Service March 24, 2020 Assessment & Plan ASA [id number] Proposed Anesthesia Anesthesia Type: MAC Risk / Benefits Reviewed With: PT / POA / Parent / Guardian, Accepts Plan and Informed Consent Obtained History Surgery Operation Date: 03/24/20 10:30 Proposed Procedures p Ureteral Stent Insertion/Removal(Left) - Angelina Clinton MD Height/Weight Height: 6 ft 2 in Weight: 85.8 kg Allergies Allergy/AdvReac Type Severity Reaction Status Date / Time escitalopram [From Lexapro] AdvReac Drowsy Verified 03/23/20 22:35 paroxetine [From Paxil] AdvReac Drowsy Verified 03/23/20 22:35 Medications Home Medications Medication Instructions Recorded Confirmed Last Taken omega 2-mgq-fpq-fish oil [Fish Oil] 1 cap PO QAM 09/16/18 03/23/20 10/04/18 acetaminophen [Tylenol] 650 mg PO Q4 PRN 03/23/20 03/23/20 Unknown ascorbic acid (vitamin C) [Vitamin 500 mg PO DAILY 03/23/20 03/23/20 Unknown C] aspirin [Aspir-81] 81 mg PO DAILY 03/23/20 03/23/20 Unknown atorvastatin 40 mg PO HS 03/23/20 03/23/20 Unknown clopidogrel [Plavix] 75 mg PO DAILY 03/23/20 03/23/20 Unknown diclofenac sodium [Voltaren] 2 g TOPICAL QID PRN 03/23/20 03/23/20 Unknown docusate sodium 100 mg PO BID 03/23/20 03/23/20 Unknown enoxaparin [Lovenox] 40 mg SUBCUT DAILY 03/23/20 03/23/20 Unknown lidocaine 1 patch TOPICAL DAILY 03/23/20 03/23/20 Unknown lidocaine HCl [Lidocaine Viscous] 5 ml TOPICAL ACHS 03/23/20 03/23/20 Unknown magnesium hydroxide [Milk of 30 ml PO DAILY PRN 03/23/20 03/23/20 Unknown Magnesia] mecobal-levomefolat Ca-B6 phos 1 tab PO DAILY 03/23/20 03/23/20 Unknown [Foltanx] ondansetron HCl 4 mg PO Q8H PRN 03/23/20 03/23/20 Unknown pantoprazole 40 mg PO DAILY 03/23/20 03/23/20 Unknown polyethylene glycol 3350 [Miralax] 17 g PO DAILY 03/23/20 03/23/20 Unknown sennosides-docusate sodium 1 tab-cap PO .QLUNCH 03/23/20 03/23/20 Unknown [Senokot-S] tamsulosin [Flomax] 0.4 mg PO DAILY 03/23/20 03/23/20 Unknown venlafaxine 150 mg PO DAILY 03/23/20 03/23/20 Unknown Active Medications Generic Name Dose Route Start Last Admin Trade Name Freq PRN Reason Stop Dose Admin Acetaminophen 650 mg 03/24/20 01:21 03/24/20 09:27 Acetaminophen 325 Mg Tab PO 04/23/20 01:20 650 mg Q4 PRN Administration Pain Ascorbic Acid 500 mg 03/24/20 09:00 03/24/20 09:29 Ascorbic Acid 500 Mg Tab PO 04/23/20 08:59 500 mg DAILY COCO Administration Docusate Sodium 100 mg 03/24/20 09:00 03/24/20 09:27 Docusate Sodium 100 Mg Cap PO 04/23/20 08:59 Not Given BID COCO Fish Oil 1 gm 03/24/20 09:00 03/24/20 09:29 Viola-3 (Purified Fish Oil) 1 Gm Cap PO 04/23/20 08:59 1 gm QAM COCO Administration Sodium Chloride 1,000 mls @ 80 mls/hr 03/24/20 02:39 03/24/20 04:03 Nss 1000ml IV 04/23/20 02:38 80 mls/hr .[id number] COCO Administration Lidocaine 1 patch 03/24/20 09:00 03/24/20 09:30 Lidocaine 5% 1 Patch TD 04/23/20 08:59 1 patch DAILY COCO Administration Miscellaneous 1 ea 03/24/20 08:00 03/24/20 08:27 Foltanx~Order Awaiting Action N/A 04/23/20 07:59 Not Given QS COCO Morphine Sulfate 4 mg 03/24/20 02:51 03/24/20 09:25 Morphine Sulfate 4 Mg/Ml 1 Ml Carp\Vial IV 04/07/20 02:38 4 mg Q4H PRN Administration Pain Pantoprazole Sodium 40 mg 03/24/20 09:00 03/24/20 09:29 Pantoprazole 40 Mg Tab PO 04/23/20 08:59 40 mg DAILY COCO Administration Polyethylene Glycol 17 gm 03/24/20 09:00 03/24/20 09:28 Polyethylene (Miralax) 17 Gm Pack PO 04/23/20 08:59 Not Given DAILY COCO Tamsulosin HCl 0.4 mg 03/24/20 09:00 03/24/20 09:29 Tamsulosin Hcl 0.4 Mg Cap PO 04/23/20 08:59 0.4 mg DAILY COCO Administration Venlafaxine HCl 150 mg 03/24/20 09:00 03/24/20 09:29 Venlafaxine Hcl Xr 150 Mg Capxr PO 04/23/20 08:59 150 mg DAILY COCO Administration NPO Date Last Intake of Fluids: 03/23/20 Time Last Intake of Fluids: 23:00 Date Last Intake of Solids: 03/23/20 Time Last Intake of Solids: 23:00 Past Medical History Medical History Anxiety Arthritis, multiple joint involvement Depression Hyperlipidemia Hyperlipidemia Osteoarthritis Sleep apnea CPAP Exercise / Class Metabolic Activity II 4-5 Yardwork/Stairs/Walk up hill Past Family History Family History Son Type 1 diabetes Mother Breast cancer Dyslipidemia Father Myocardial infarction Stroke Ischemic dilated cardiomyopathy Brother Hypertension Denies family history of Ovarian cancer Prostate cancer Colorectal cancer Past Surgical History Surgical History H/O arthroscopic knee surgery with medial meniscus repair H/O hand surgery LEFT INDEX FINGER (TENDON REPAIR) History of colonoscopy 2013 and 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 2014 - Tubular Adenoma. History of repair of rotator cuff RT History of tooth extraction S/P foot surgery right-05/06/2019 Past Anesthesia History No Hx of Anesthesia Complications and No Family Hx of Anesthesia Complications History of PONV No Hx of PONV and No Hx of Motion Sickness Social History Smoking Status: Former smoker Hx Alcohol Use: Yes Alcohol type: beer alcohol intake frequency: a few times a week Hx Substance Use: No substance use type: does not use Review of Systems denies fever/cough/ colds/ chest pain/ SOB/ HARRIET recent stroke. paralyzed left side Constitutional: no fever and no chills Respiratory: no cough and no dyspnea denies HARRIET Cardiovascular: no chest pain and no dyspnea on exertion Physical Exam Vital Signs Last Vital Signs Temp 37.6 C H 03/24/20 09:25 Pulse 79 03/24/20 07:32 Resp 19 03/24/20 07:26 BP 151/88 H 03/24/20 07:26 Pulse Ox 96 03/24/20 07:26 ENMT Mouth: no TMJ abnormality and no dentition abnormality Thyromental Distance: > or= 3.5 Finger Breadths Mallampati Class: II Neck neck extension not limited Respiratory normal respiratory effort; no respiratory distress Auscultation: lungs clear to auscultation bilaterally Cardiovascular Rate/Rhythm: regular rate and regular rhythm Neurologic + does not move all extremities (cannot move left side) Psychiatric Orientation: alert and oriented x 3 Testing Laboratory Results 03/24/20 06:15 03/24/20 06:15 Urine Color Dark Yellow 03/23/20 21:35 Urine Appearance Cloudy (Clear) A 03/23/20 21:35 Urine pH 5.0 (4.5-7.5) 03/23/20 21:35 Ur Specific [place] 1.021 (1.000-1.030) 03/23/20 21:35 Urine Protein 1+ (Negative) H 03/23/20 21:35 Urine Glucose (UA) Negative (Negative) 03/23/20 21:35 Urine Ketones Negative (Negative) 03/23/20 21:35 Urine Nitrite Negative (Negative) 03/23/20 21:35 Ur Leukocyte Esterase 1+ (Negative) H 03/23/20 21:35 Urine WBC (Auto) 10-30 /hpf (0-5) H 03/23/20 21:35 Urine RBC (Auto) 10-30 /hpf (0-4) H 03/23/20 21:35 U Hyaline Cast (Auto) 1-5 /lpf (0-5) 03/23/20 21:35 U Epithel Cells (Auto) 5-10 /lpf (0-5) H 03/23/20 21:35 Urine Bacteria (Auto) Negative (Negative) 03/23/20 21:35
[2020-03-24] MEDS ORDERED: HYDROmorphone INJ 2 MG/ML SYR/VIAL IV PRN (11:03)
[2020-03-24] MEDS ORDERED: PHENYLEPHRINE 100MCG/ML 5ML SYR ONE (11:18)
[2020-03-24] MEDS ORDERED: DIATRIZOATE MEGLUMINE 30% 100ML VIAL INSTIL ONE (11:25)
--- NOTE | 2020-03-24 11:54 | Post Operative Brief Note ---
PG Immediate Post Op with CF Date of Surgery March 24, 2020 Pre & Post Diagnosis Operation Date: 03/24/20 10:30 Pre-Op Diagnosis: KIDNEY STONE W/ HYDRONEPHROSIS, PAIN CONTROL, Post-Op Diagnosis: KIDNEY STONE W/ HYDRONEPHROSIS, PAIN CONTROL, I identified the patient and participated in the time-out.: Yes Procedure Operation Date: 03/24/20 10:30 Actual Procedures p Cystoscopy, Ureteral Stent Insertion(Left) - Angelina Clinton MD Surgeon Angelina Clinton MD Coper Hand none Estimated Blood Loss 5 Findings Consistent with Post-Op Diagnosis Specimens Specimen Description: NONE PER SURGEON Drains Silvestre Catheter (16fr coude)
--- NOTE | 2020-03-24 11:55 | Anesthesiology Progress Note ---
Date of Service March 24, 2020 Anesthesia Post Procedure Vital Signs Vital Signs: Temp Pulse Pulse Pulse Pulse Resp BP 03/24/20 11:45 94 H 16 03/24/20 11:37 36.4 C L 102 H 16 03/24/20 09:25 37.6 C H 03/24/20 07:32 79 03/24/20 07:26 37.2 C 85 19 03/24/20 05:13 73 03/24/20 04:53 37.1 C 88 18 03/24/20 02:00 85 17 167/100 H 03/24/20 01:30 85 17 152/92 H 03/24/20 01:00 88 21 149/88 H 03/24/20 00:30 86 18 138/85 03/24/20 00:00 97 H 20 150/94 H 03/23/20 23:34 101 H 16 157/106 H 03/23/20 22:21 03/23/20 22:20 94 H 19 142/89 H 03/23/20 21:20 36.9 C 107 H 18 147/113 H BP Pulse Ox 03/24/20 11:45 125/74 99 03/24/20 11:37 122/77 95 03/24/20 09:25 03/24/20 07:32 03/24/20 07:26 151/88 H 96 03/24/20 05:13 03/24/20 04:53 176/98 H 95 03/24/20 02:00 96 03/24/20 01:30 95 03/24/20 01:00 94 03/24/20 00:30 93 03/24/20 00:00 95 03/23/20 23:34 94 03/23/20 22:21 92 03/23/20 22:20 92 03/23/20 21:20 94 Pain Intensity Left Flank: Pain Intensity: 6 Transfer of Care Handoff Completed per policy Notes Mental Status: alert / awake / arousable and participated in evaluation Patient Amnestic to Procedure: Yes Nausea / Vomiting: adequately controlled Pain: adequately controlled Airway Patency, RR, SpO2: stable & adequate BP & HR: stable & adequate Hydration State: stable & adequate Anesthetic Complications: no major complications apparent and Pt Satisfied with anesthetic care
--- NOTE | 2020-03-24 11:59 | Operative Report ---
PG Post Operative Report Pre & Post Diagnosis Operation Date: 03/24/20 10:30 Pre-Op Diagnosis: KIDNEY STONE W/ HYDRONEPHROSIS, PAIN CONTROL, Post-Op Diagnosis: KIDNEY STONE W/ HYDRONEPHROSIS, PAIN CONTROL, I identified the patient and participated in the time-out.: Yes Procedure Operation Date: 03/24/20 10:30 Actual Procedures p Cystoscopy, Ureteral Stent Insertion(Left) - Angelina Clinton MD Surgeon Angelina Clinton MD Loom Overhauler none Estimated Blood Loss 5 Findings Consistent with Post-Op Diagnosis Specimens none Description of Procedure The patient was brought to the operating room suite and placed and in a dorsal lithotomy position after undergoing adequate MAC anesthetic. Preoperatively we discussed the risks and benefits of surgery and consent was obtained. His meeks catheter was removed. He was prepped and draped for the procedure. A 25 Fr rigid cystsocope was used to examine the bladder. I did not see a false passage in the urethra considering his many catheter attempts. He does have an enlarged prostate. Upon entrance into the bladder he had erythema consistent with catheter cystitis. No tumors were seen. I identified the left ureteral orifice and passed a wire to the kidney. Over the wire, I passed a 5Fr open ended catheter and completed a retrograde pyelogram. Of note, the stone was not visible on fluoro. At this time, I passed a wire back through the open ended catheter. A 6Fr x 26cm stent was placed over the wire securing a nice coil in the bladder and renal pelvis. I then replaced a care. I was unable to pass a meeks. I then used a 16Fr Coude and with some difficulty was able to pass this catheter. Patient's discharge per primary team - patient will need outpatient follow up for the stone. Also, leave the meeks catheter in place for 7-10 days prior to removal secondary to retention and difficult catheterization. I attest to the content of the Intraoperative Record and any orders documented therein. Any exceptions are noted below.
[2020-03-24] MEDS: DOCUSATE SODIUM/SENNA 50/8.6MG TAB PO SCH (12:19)
--- NOTE | 2020-03-24 13:59 | Fluoroscopy Report ---
INTRAOPERATIVE RADIOGRAPH CLINICAL HISTORY: Left-sided retrograde pyelogram and ureteral stent placement. Fluoroscopy time: 10 seconds. FINDINGS: A single spot fluoroscopic image of the left upper quadrant is correlated with abdominal CT dated 03/23/2020. The proximal end of a left ureteral stent projects over the left renal pelvis. IMPRESSION: Intraoperative image from a left ureteral stent placement procedure as above. Electronically signed by: Morteza Hickey M.D. 03/24/2020 1:58 PM
--- NOTE | 2020-03-24 14:59 | XRay Report ---
SINGLE VIEW CHEST CLINICAL HISTORY: Tachycardia. FINDINGS: 2 AP, portable, upright chest radiographs are compared to study dated 12/22/2012. The examin ation is degraded by portable technique and patient rotation. An electronic device partially obscures the left upper chest. The cardiomediastinal silhouette is unremarkable. The lungs and pleural spaces are clear. No pneumothorax is seen. The skeletal structures appear osteopenic. The bony thorax is gr ossly intact. IMPRESSION: No active disease in the chest. ACT 112: Negative or not required by law. Electronically signed by: Morteza Hickey M.D. 03/24/2020 2:58 PM
[2020-03-24] MEDS ORDERED: IMIPENEM/CILASTATIN CONSULT ACTIVE PRN (15:04)
[2020-03-24 15:48] LABS: Basophils # (auto) 0.02 K/uL (0-0.2); Basophils % (auto) 0.2 %; Eosinophils # (auto) 0.02 K/uL (0-0.5); Eosinophils % (auto) 0.2 %; Hematocrit (blood only) 40.4 % (42-52); Hemoglobin 13.8 g/dL (14.0-18.0); Immature Granulocytes # (auto) 0.02 K/uL (0.00-0.02); Immature Granulocytes % (auto) 0.2 %; Lymphocytes # (auto) 0.22 K/uL (1.2-3.4); Lymphocytes % (auto) 2.4 %; Mean Corpuscular Hemoglobin 30.3 pg (25-34); Mean Corpuscular Hgb Conc 34.2 g/dL (32-36); Mean Corpuscular Volume 88.6 fL (80-100); Mean Platelet Volume 8.7 fL (7.4-10.4); Monocytes # (auto) 0.72 K/uL (0.11-0.59); Neutrophils # (auto) 8.04 K/uL (1.4-6.5); Platelet Count 239 K/uL (130-400); RDW Coefficient of Variation 13.6 % (11.5-14.5); RDW Standard Deviation 44.6 fL (36.4-46.3); Red Blood Count 4.56 M/uL (4.7-6.1); White Blood Count 9.04 K/uL (4.8-10.8)
[2020-03-24 16:21] LABS: BUN Creatinine Ratio 12.5 (10-20); Calcium 9.1 mg/dl (8.5-10.1); Creatinine Clr Calc Pharmacy 69.2 ml/min; Est GFR (African American) 69.2; Est GFR (Non-African American) 59.7; Potassium 4.1 mmol/L (3.5-5.1)
[2020-03-24] MEDS: IMIPENEM/CILASTATIN SODIUM 400 MG in DEXTROSE 5% 100 ML IV SCH ×2 (17:05→20:31)
--- NOTE | 2020-03-24 18:12 | Billing Data ---
Date of Service March 24, 2020 Coding Level of Care Code 55431 Initial Inpt Care Lvl 3
[2020-03-24] MEDS: ATORVASTATIN 40 MG TAB PO SCH (20:32)
--- NOTE | 2020-03-24 22:32 | Hospitalist Progress Note ---
Date of Service March 24, 2020 Assessment & Plan (1) Ureterolithiasis: Patient to OR for stent. Patient will need outpatient surgery in the future for resolution of the stone. (2) Renal colic: * P.o. acetaminophen and PRN morphine as needed. (3) Acute urinary retention: Leave meeks at this time - likely related to recent CVA (4) Hydronephrosis: * Continue with appropriate pain management. * Continue with IV fluids. * Appreciate nephrology consultation. (5) Recent cerebrovascular accident (CVA): * Recent CVA with LEFT-sided hemiparesis currently receiving therapy at [facility]. * Will add PT OT to continue with patient's current goals of care. * Patient without special diet at this time (i.e. no restrictions on textures). * Patient was placed on aspirin and Plavix. * Will hold aspirin Plavix as well as Lovenox this morning (03/24) pending urologic evaluation. (6) Left-sided weakness: * As discussed, continue with PT OT for ongoing goals of care. Admission and Anticipated Discharge Date Admission Date: March 24, 2020 Results & Data Results & Data ([facility]) Vital Signs (Past 12 Hours) Vital Signs Temp Pulse Pulse Pulse Resp BP Pulse Ox 03/24/20 19:00 37.3 C 111 H 20 154/91 H 93 03/24/20 16:29 37.2 C 121 H 17 104/53 L 91 03/24/20 16:08 37.6 C H 121 H 18 95 03/24/20 16:00 123 H 03/24/20 14:57 92 03/24/20 14:56 39.3 C H 136 H 22 122/69 88 L 03/24/20 14:00 37.6 C H 127 H 19 150/73 H 90 03/24/20 13:00 36.6 C 121 H 20 130/80 94 03/24/20 12:30 92 H 03/24/20 12:15 37.3 C 106 H 20 114/69 91 03/24/20 11:56 36.6 C 97 H 16 133/74 99 03/24/20 11:45 94 H 16 125/74 99 03/24/20 11:37 36.4 C L 102 H 16 122/77 95 PG Care Time/CCT Total # of Minutes Spent Total Time Spent with Patient: Total time spent is greater than 50% in coordination of care (as documented) at patient's floor/unit and/or counseling patient: Coding Diagnoses Ureterolithiasis N20.1 Renal colic N23 Acute urinary retention R33.8 Hydronephrosis Q62.11 Hydronephrosis type: with ureteropelvic junction obstruction Recent cerebrovascular accident (CVA) Z86.73 Left-sided weakness R53.1 (1) Hydronephrosis Hydronephrosis type: with ureteropelvic junction obstruction Qualified Code(s): Q62.11 - Congenital occlusion of ureteropelvic junction
[2020-03-25] MEDS: SODIUM CHLORIDE 0.9% 1000ML 1,000 ML IV SCH ×4 (02:15→23:01)
[2020-03-25] MEDS: ACETAMINOPHEN 325 MG TAB PO PRN ×3 (03:14→22:11)
[2020-03-25] MEDS: IMIPENEM/CILASTATIN SODIUM 400 MG in DEXTROSE 5% 100 ML IV SCH ×2 (03:58→09:05)
[2020-03-25 07:32] LABS: Creatinine Clr Calc Pharmacy 98.8 ml/min; Est GFR (African American) 105.5
[2020-03-25] MEDS: DOCUSATE SODIUM 100 MG CAP PO SCH ×2 (08:08→20:05)
[2020-03-25] MEDS: POLYETHYLENE (MIRALAX) 17 GM PACK PO SCH (08:08)
[2020-03-25] MEDS: VENLAFAXINE HCL XR 150 MG CAPXR PO SCH (08:09)
[2020-03-25] MEDS: OMEGA-3 (PURIFIED FISH OIL) 1 GM CAP PO SCH (08:09)
[2020-03-25] MEDS: PANTOprazole 40 MG TAB PO SCH (08:09)
[2020-03-25] MEDS: LIDOCAINE 5% 1 PATCH TD SCH (08:10)
[2020-03-25] MEDS: ASCORBIC ACID 500 MG TAB PO SCH (08:57)
[2020-03-25] MEDS: TAMSULOSIN HCL 0.4 MG CAP PO SCH (08:57)
[2020-03-25] MEDS: DOCUSATE SODIUM/SENNA 50/8.6MG TAB PO SCH (11:44)
--- NOTE | 2020-03-25 11:52 | Urology Progress Note ---
Date of Service March 25, 2020 Assessment & Plan (1) Renal mass: patient will need outpatient MRI to further characterize the lesion after the patient has been treated for the stone. (2) Acute urinary retention: Leave meeks at this time - retention likely related to recent CVA. With current infection patient needs to be maximally drained. (3) Ureterolithiasis: Patient will need outpatient surgery in the future for resolution of the stone. (4) Sepsis: Continue IVF and broad spectrum antibiotics. Admission and Anticipated Discharge Date Admission Date: March 24, 2020 Subjective Patient underwent L ureteral stent yesterday for an obstructing stone. + fevers, tachycardia last night. Blood cultures have come back positive for gram+ cocci. His antibiotics were broadened last evening to imipenem and fluids increased. Today he is working with PT. His vitals have improved. He is not complaining of pain. He denies N/V No SOB Review of Systems Review of Systems: All systems reviewed & are unremarkable except as noted in HPI & below Physical Exam Physical Exam: NAD, OR x 3 nonlabored breathing soft, + tenderness meeks with pink urine Moving ext + facial droop. left extremity weakness no lower extremity edema Results & Data ([facility]) Vital Signs (Past 12 Hours) Vital Signs Temp Pulse Pulse Resp BP Pulse Ox 03/25/20 11:13 38.8 C H 103 H 18 121/61 96 03/25/20 09:04 36.7 C 03/25/20 07:19 36.8 C 83 18 122/76 93 03/25/20 07:05 80 03/25/20 05:19 116 H 03/25/20 04:01 37.6 C H 102 H 03/25/20 03:00 39.4 C H 111 H 20 145/71 H 94 PG Care Time/CCT Total # of Minutes Spent Total Time Spent with Patient: Total time spent is greater than 50% in coordination of care (as documented) at patient's floor/unit and/or counseling patient: Coding Level of Care Code 54743 Subseq Hosp Care Lvl 2 History Expanded Problem Focused Exam Expanded Problem Focused Medical Decision Making Moderate Complexity Diagnoses Renal mass N28.89 Acute urinary retention R33.8 Ureterolithiasis N20.1 Sepsis A41.9
[2020-03-25] MEDS ORDERED: PIPERACILL/TAZOBAC CONSULT ACTIVE PRN (15:50)
[2020-03-25] MEDS ORDERED: PIPERACILLIN/TAZOBACTAM 4.5 GM in DEXTROSE 5% 100 ML IV ONE (16:00)
[2020-03-25] MEDS ORDERED: IMIPENEM/CILASTATIN SODIUM 500 MG in DEXTROSE 5% 100 ML IV SCH (16:00)
[2020-03-25] MEDS: PIPERACILLIN/TAZOBACTAM 4.5 GM in DEXTROSE 5% 100 ML IV SCH (20:05)
[2020-03-25] MEDS: ATORVASTATIN 40 MG TAB PO SCH (20:06)
--- NOTE | 2020-03-25 22:50 | Hospitalist Progress Note ---
Date of Service March 25, 2020 Assessment & Plan (1) Sepsis: Patient developed elevated HR and fever after procedure. Patient did not improve with cipro and ceftriaxone and was placed on imipenem. will repeat blood culture. (2) Ureterolithiasis: S/P stent (3) Renal colic: * P.o. acetaminophen and PRN morphine as needed. (4) Acute urinary retention: Leave meeks at this time - likely related to recent CVA (5) Hydronephrosis: * Continue with appropriate pain management. * Continue with IV fluids. * Appreciate nephrology consultation. (6) Recent cerebrovascular accident (CVA): * Recent CVA with LEFT-sided hemiparesis currently receiving therapy at [facility]. * Will add PT OT to continue with patient's current goals of care. * Patient without special diet at this time (i.e. no restrictions on textures). * Patient was placed on aspirin and Plavix. * (7) Left-sided weakness: * As discussed, continue with PT OT for ongoing goals of care. Admission and Anticipated Discharge Date Admission Date: March 24, 2020 Subjective Patient continues to feel weak. Patient had a fever yesterday. Review of Systems Review of Systems: All systems reviewed & are unremarkable except as noted in HPI & below Physical Exam Physical Exam: VITAL SIGNS - Vital signs and nursing notes were reviewed. GENERAL - 65-year-old male appearing his stated age who is in no acute distress HEAD - NC/AT. EYES - PERRL with EOMI bilaterally. Sclera anicteric. EARS - No deformities of external structures noted on gross examination bilaterally. NOSE - Midline and without cyanosis. No epistaxis or purulent drainage noted. MOUTH/OROPHARYNX - Without perioral cyanosis. Buccal mucosa pink and moist and without leukoplakia. NECK - Neck with FROM. Supple to palpation. No nuchal rigidity. LUNGS - CTA B/L. No wheezes, rales, or rhonchi appreciated. CARDIAC - RRR with S1/S2. No murmur, rubs, or gallops appreciated. ABDOMEN - Abdominal contour flat without pulsations or visible masses. BS normoactive all four quadrants. No tenderness to palpation appreciated throughout. No guarding. No Rebound Tenderness. No palpable masses, hepatosplenomegaly, or ascites noted. EXTREMITIES - No clubbing or peripheral cyanosis. decreased DP pulse on the LEFT. Decreased strength in the LEFT lower extremity when compared to right. Flaccid paralysis of the LEFT upper extremity. No pretibial edema present. +3/5 radial pulses palpated throughout. NEUROLOGIC -LEFT upper extremity flaccid paralysis. Weakness of the LEFT lower extremity. Persistent LEFT-sided facial droop. Recent CVA. PSYCH - A&Ox3 and cooperates fully with examiner. Pt is very pleasant and interacts well with examiner. Results & Data Results & Data ([facility]) Vital Signs (Past 12 Hours) Vital Signs Temp Pulse Resp BP Pulse Ox 03/25/20 22:00 38.7 C H 101 H 16 104/65 93 03/25/20 19:00 37.0 C 96 H 18 131/67 93 03/25/20 15:10 36.4 C L 90 18 101/67 93 03/25/20 13:36 36.9 C 03/25/20 12:41 38.9 C H 03/25/20 11:13 38.8 C H 103 H 18 121/61 96 PG Care Time/CCT Total # of Minutes Spent Total Time Spent with Patient: Total time spent is greater than 50% in coordina tion of care (as documented) at patient's floor/unit and/or counseling patient: Coding Level of Care Code 53397 Subseq Hosp Care Lvl 3 Diagnoses Sepsis A41.9 Ureterolithiasis N20.1 Renal colic N23 Acute urinary retention R33.8 Hydronephrosis Q62.11 Hydronephrosis type: with ureteropelvic junction obstruction Recent cerebrovascular accident (CVA) Z86.73 Left-sided weakness R53.1 Time Spent (min) 35 (1) Hydronephrosis Hydronephrosis type: with ureteropelvic junction obstruction Qualified Code(s): Q62.11 - Congenital occlusion of ureteropelvic junction
[2020-03-26] MEDS: PIPERACILLIN/TAZOBACTAM 4.5 GM in DEXTROSE 5% 100 ML IV SCH ×3 (03:47→19:36)
[2020-03-26] MEDS: SODIUM CHLORIDE 0.9% 1000ML 1,000 ML IV SCH ×2 (05:12→13:56)
[2020-03-26] MEDS: ACETAMINOPHEN 325 MG TAB PO PRN ×2 (05:58→19:35)
[2020-03-26 06:44] LABS: Creatinine Clr Calc Pharmacy 108.5 ml/min; Est GFR (African American) 109.6; Est GFR (Non-African American) 94.6
[2020-03-26] MEDS: POLYETHYLENE (MIRALAX) 17 GM PACK PO SCH (08:30)
[2020-03-26] MEDS: DOCUSATE SODIUM 100 MG CAP PO SCH ×2 (08:30→19:47)
[2020-03-26] MEDS: VENLAFAXINE HCL XR 150 MG CAPXR PO SCH (09:14)
[2020-03-26] MEDS: LIDOCAINE 5% 1 PATCH TD SCH (09:14)
[2020-03-26] MEDS: ASCORBIC ACID 500 MG TAB PO SCH (09:14)
[2020-03-26] MEDS: PANTOprazole 40 MG TAB PO SCH (09:14)
[2020-03-26] MEDS: TAMSULOSIN HCL 0.4 MG CAP PO SCH (09:14)
[2020-03-26] MEDS: OMEGA-3 (PURIFIED FISH OIL) 1 GM CAP PO SCH (09:14)
--- NOTE | 2020-03-26 09:31 | Anesthesiology Progress Note ---
Date of Service March 26, 2020 Anesthesia Post Procedure Vital Signs Vital Signs: Temp Pulse Pulse Pulse Resp BP Pulse Ox 03/26/20 07:24 36.6 C 77 77 19 116/54 L 93 03/26/20 07:00 83 03/26/20 04:56 36.5 C 76 18 114/68 97 03/25/20 23:24 96 H 03/25/20 23:00 37.2 C 03/25/20 22:00 38.7 C H 101 H 16 104/65 93 03/25/20 19:00 37.0 C 96 H 18 131/67 93 03/25/20 15:10 36.4 C L 90 18 101/67 93 03/25/20 13:36 36.9 C 03/25/20 12:41 38.9 C H 03/25/20 11:13 38.8 C H 103 H 18 121/61 96 Notes Mental Status: alert / awake / arousable and participated in evaluation Patient Amnestic to Procedure: Yes Nausea / Vomiting: adequately controlled Pain: adequately controlled Airway Patency, RR, SpO2: stable & adequate BP & HR: stable & adequate Hydration State: stable & adequate Anesthetic Complications: no major complications apparent
[2020-03-26] MEDS: DOCUSATE SODIUM/SENNA 50/8.6MG TAB PO SCH (12:08)
[2020-03-26] MEDS: ATORVASTATIN 40 MG TAB PO SCH (19:47)
--- NOTE | 2020-03-26 22:39 | Hospitalist Progress Note ---
Date of Service March 26, 2020 Assessment & Plan (1) Sepsis: Patient developed elevated HR and fever after procedure. Patient did not improve with cipro and ceftriaxone and was placed on imipenem. now on zosyn as senitivities returned. will repeat blood culture. awaiting negative blood cultures prior to discharge. (2) Ureterolithiasis: S/P stent (3) Renal colic: * P.o. acetaminophen and PRN morphine as needed. (4) Acute urinary retention: Leave meeks at this time - likely related to recent CVA (5) Hydronephrosis: * Continue with appropriate pain management. * Continue with IV fluids. * Appreciate nephrology consultation. (6) Recent cerebrovascular accident (CVA): * Recent CVA with LEFT-sided hemiparesis currently receiving therapy at [facility]. * Will add PT OT to continue with patient's current goals of care. * Patient without special diet at this time (i.e. no restrictions on textures). * Patient was placed on aspirin and Plavix. * (7) Left-sided weakness: * As discussed, continue with PT OT for ongoing goals of care. Admission and Anticipated Discharge Date Admission Date: March 24, 2020 Subjective Patient is feeling better. Review of Systems Review of Systems: All systems reviewed & are unremarkable except as noted in HPI & below Physical Exam Physical Exam: GENERAL - 65-year-old male appearing his stated age who is in no acute distress HEAD - NC/AT. EYES - PERRL with EOMI bilaterally. Sclera anicteric. EARS - No deformities of external structures noted on gross examination bilaterally. NOSE - Midline and without cyanosis. No epistaxis or purulent drainage noted. MOUTH/OROPHARYNX - Without perioral cyanosis. Buccal mucosa pink and moist and without leukoplakia. NECK - Neck with FROM. Supple to palpation. No nuchal rigidity. LUNGS - CTA B/L. No wheezes, rales, or rhonchi appreciated. CARDIAC - RRR with S1/S2. No murmur, rubs, or gallops appreciated. ABDOMEN - Abdominal contour flat without pulsations or visible masses. BS nor moactive all four quadrants. No tenderness to palpation appreciated throughout. No guarding. No Rebound Tenderness. No palpable masses, hepatosplenomegaly, or ascites noted. EXTREMITIES - No clubbing or peripheral cyanosis. decreased DP pulse on the LEFT. Decreased strength in the LEFT lower extremity when compared to right. Flaccid paralysis of the LEFT upper extremity. No pretibial edema present. +3/5 radial pulses palpated throughout. NEUROLOGIC -LEFT upper extremity flaccid paralysis. Weakness of the LEFT lower extremity. Persistent LEFT-sided facial droop. Recent CVA. PSYCH - A&Ox3 and cooperates fully with examiner. Pt is very pleasant and interacts well with examiner. Results & Data Results & Data ([facility]) Vital Signs (Past 12 Hours) Vital Signs Temp Pulse Pulse Pulse Resp BP Pulse Ox 03/26/20 19:46 37.0 C 81 20 120/66 95 03/26/20 16:00 78 03/26/20 14:57 36.3 C L 85 18 110/66 93 PG Care Time/CCT Total # of Minutes Spent Total Time Spent with Patient: Total time spent is greater than 50% in coordination of care (as documented) at patient's floor/unit and/or counseling patient: Coding Level of Care Code 21468 Subseq Hosp Care Lvl 2 Diagnoses Sepsis A41.9 Ureterolithiasis N20.1 Renal colic N23 Acute urinary retention R33.8 Hydronephrosis Q62.11 Hydronephrosis type: with ureteropelvic junction obstruction Recent cerebrovascular accident (CVA) Z86.73 Left-sided weakness R53.1 Time Spent (min) 25 (1) Hydronephrosis Hydronephrosis type: with ureteropelvic junction obstruction Qualified Code (s): Q62.11 - Congenital occlusion of ureteropelvic junction
[2020-03-27] MEDS: PIPERACILLIN/TAZOBACTAM 4.5 GM in DEXTROSE 5% 100 ML IV SCH ×2 (03:53→12:18)
[2020-03-27 07:04] LABS: Creatinine Clr Calc Pharmacy 105.3 ml/min; Est GFR (African American) 111.9; Est GFR (Non-African American) 96.6
[2020-03-27] MEDS: DOCUSATE SODIUM 100 MG CAP PO SCH ×2 (07:35→20:38)
[2020-03-27] MEDS: POLYETHYLENE (MIRALAX) 17 GM PACK PO SCH (07:35)
[2020-03-27] MEDS: DOCUSATE SODIUM/SENNA 50/8.6MG TAB PO SCH (07:36)
[2020-03-27] MEDS: OMEGA-3 (PURIFIED FISH OIL) 1 GM CAP PO SCH (08:15)
[2020-03-27] MEDS: TAMSULOSIN HCL 0.4 MG CAP PO SCH (08:15)
[2020-03-27] MEDS: LIDOCAINE 5% 1 PATCH TD SCH (08:16)
[2020-03-27] MEDS: VENLAFAXINE HCL XR 150 MG CAPXR PO SCH (08:16)
[2020-03-27] MEDS: ASCORBIC ACID 500 MG TAB PO SCH (08:16)
[2020-03-27] MEDS: PANTOprazole 40 MG TAB PO SCH (08:16)
[2020-03-27 09:03] LABS: Basophils # (auto) 0.03 K/uL (0-0.2); Basophils % (auto) 0.9 %; Eosinophils # (auto) 0.09 K/uL (0-0.5); Eosinophils % (auto) 2.7 %; Hemoglobin 11.8 g/dL (14.0-18.0); Immature Granulocytes # (auto) 0.01 K/uL (0.00-0.02); Immature Granulocytes % (auto) 0.3 %; Lymphocytes # (auto) 0.82 K/uL (1.2-3.4); Lymphocytes % (auto) 24.7 %; Mean Corpuscular Hemoglobin 29.4 pg (25-34); Mean Corpuscular Hgb Conc 33.7 g/dL (32-36); Mean Corpuscular Volume 87.3 fL (80-100); Mean Platelet Volume 9.1 fL (7.4-10.4); Monocytes # (auto) 0.39 K/uL (0.11-0.59); Monocytes % (auto) 11.7 %; Neutrophils # (auto) 1.98 K/uL (1.4-6.5); Neutrophils % (auto) 59.7 %; Platelet Count 206 K/uL (130-400); RDW Coefficient of Variation 13.6 % (11.5-14.5); RDW Standard Deviation 43.6 fL (36.4-46.3); Red Blood Count 4.01 M/uL (4.7-6.1); White Blood Count 3.32 K/uL (4.8-10.8)
[2020-03-27] MEDS: CLOPIDOGREL BISULFATE 75 MG TAB PO SCH (09:42)
[2020-03-27] MEDS: ASPIRIN 81 MG ECTAB PO SCH (09:42)
[2020-03-27] MEDS ORDERED: AMPICILLIN 1,000 MG in SODIUM CHLOR 0.9% AD-VAN 50 ML IV SCH (18:00)
[2020-03-27] MEDS: AMPICILLIN 2,000 MG in SODIUM CHLOR 0.9% AD-VAN 100 ML IV SCH ×2 (18:11→21:27)
[2020-03-27] MEDS: ATORVASTATIN 40 MG TAB PO SCH (20:38)
--- NOTE | 2020-03-27 23:22 | Hospitalist Progress Note ---
Date of Service March 27, 2020 Assessment & Plan (1) Sepsis: Patient developed elevated HR and fever after procedure. Patient did not improve with cipro and ceftriaxone and was placed on imipenem. now on zosyn as sensitivities returned. Will likely transition him perhaps to oral FQ. awaiting negative blood cultures prior to discharge. (2) Ureterolithiasis: S/P stent (3) Renal colic: * P.o. acetaminophen and PRN morphine as needed. (4) Acute urinary retention: Leave meeks at this time - likely related to recent CVA (5) Hydronephrosis: * Continue with appropriate pain management. * Continue with IV fluids. * Appreciate nephrology consultation. (6) Recent cerebrovascular accident (CVA): * Recent CVA with LEFT-sided hemiparesis currently receiving therapy at [facility]. * Will add PT OT to continue with patient's current goals of care. * Patient without special diet at this time (i.e. no restrictions on textures). * Patient was placed on aspirin and Plavix. * (7) Left-sided weakness: * As discussed, continue with PT OT for ongoing goals of care. Admission and Anticipated Discharge Date Admission Date: March 24, 2020 Subjective 65 yo male reports feeling well. He has no new complaints. Review of Systems Review of Systems: All systems reviewed & are unremarkable except as noted in HPI & below Physical Exam Physical Exam: GENERAL - 65-year-old male appearing his stated age who is in no acute distress HEAD - NC/AT. EYES - PERRL with EOMI bilaterally. Sclera anicteric. EARS - No deformities of external structures noted on gross examination bilater ally. NOSE - Midline and without cyanosis. No epistaxis or purulent drainage noted. MOUTH/OROPHARYNX - Without perioral cyanosis. Buccal mucosa pink and moist and without leukoplakia. NECK - Neck with FROM. Supple to palpation. No nuchal rigidity. LUNGS - CTA B/L. No wheezes, rales, or rhonchi appreciated. CARDIAC - RRR with S1/S2. No murmur, rubs, or gallops appreciated. ABDOMEN - Abdominal contour flat without pulsations or visible masses. BS normoactive all four quadrants. No tenderness to palpation appreciated throughout. No guarding. No Rebound Tenderness. No palpable masses, hepatosplen omegaly, or ascites noted. EXTREMITIES - No clubbing or peripheral cyanosis PSYCH - A&Ox3 and cooperates fully with examiner. Pt is very pleasant and interacts well with examiner. Results & Data Results & Data ([facility]) Vital Signs (Past 12 Hours) Vital Signs Temp Pulse Pulse Pulse Resp BP Pulse Ox 03/27/20 19:48 37.1 C 94 H 18 120/70 92 03/27/20 16:00 80 03/27/20 15:50 36.5 C 76 20 109/70 94 03/27/20 12:14 37.0 C 81 18 114/66 92 PG Care Time/CCT Total # of Minutes Spent Total Time Spent with Patient: Total time spent is greater than 50% in coordination of care (as documented) at patient's floor/unit and/or counseling patient: Coding Level of Care Code 40717 Subseq Hosp Care Lvl 2 Diagnoses Sepsis A41.9 Ureterolithiasis N20.1 Renal colic N23 Acute urinary retention R33.8 Hydronephrosis Q62.11 Hydronephrosis type: with ureteropelvic junction obstruction Recent cerebrovascular accident (CVA) Z86.73 Left-sided weakness R53.1 (1) Hydronephrosis Hydronephrosis type: with ureteropelvic junction obstruction Qualified Code(s): Q62.11 - Congenital occlusion of ureteropelvic junction
[2020-03-28] MEDS: AMPICILLIN 2,000 MG in SODIUM CHLOR 0.9% AD-VAN 100 ML IV SCH ×4 (02:14→14:52)
[2020-03-28] MEDS: TAMSULOSIN HCL 0.4 MG CAP PO SCH (08:18)
[2020-03-28] MEDS: DOCUSATE SODIUM 100 MG CAP PO SCH ×2 (08:19→10:17)
[2020-03-28] MEDS: ASCORBIC ACID 500 MG TAB PO SCH (08:19)
[2020-03-28] MEDS: PANTOprazole 40 MG TAB PO SCH (08:19)
[2020-03-28] MEDS: VENLAFAXINE HCL XR 150 MG CAPXR PO SCH (08:19)
[2020-03-28] MEDS: OMEGA-3 (PURIFIED FISH OIL) 1 GM CAP PO SCH (08:19)
[2020-03-28] MEDS: POLYETHYLENE (MIRALAX) 17 GM PACK PO SCH ×2 (08:19→10:17)
[2020-03-28] MEDS: LIDOCAINE 5% 1 PATCH TD SCH (08:19)
[2020-03-28] MEDS: CLOPIDOGREL BISULFATE 75 MG TAB PO SCH (10:52)
[2020-03-28] MEDS: ASPIRIN 81 MG ECTAB PO SCH (10:52)
[2020-03-28] MEDS: DOCUSATE SODIUM/SENNA 50/8.6MG TAB PO SCH (11:30)
--- NOTE | 2020-04-03 23:53 | Discharge Summary ---
Date of Service March 28, 2020 Admission HPI Per Admitting Provider Patient is a 65-year-old male with a recent past medical history of CVA on 03/07/2020 for which she was initially seen at [facility]. He received TPA and was subsequently flown to [facility] for further stroke evaluation as well as concerns for decreased pulses in his LEFT lower extremity. Patient reports that he was placed on a heparin drip for a few days and did have return of pulses and no intervention was felt necessary at that time. The patient had an approximately 5-day hospitalization where he was then transferred to [facility] for rehabilitation. He states that his Meeks catheter had been removed at the time of discharge from [facility]. He states that he has been having some difficulty with voiding and was placed on Flomax while at [facility]. This was discontinued for a few days as the patient was noting some orthostatic-like symptoms during physical therapy. He did have return of difficulty with voiding and was placed back on Flomax. Yesterday, the patient w as complaining of bladder pressure and inability to void. They did attempt to place a Meeks catheter for separate times which did cause the patient to moderate amount of pain. This afternoon, the patient noticed increasing pain to the LEFT-sided flank area. This prompted transfer to the emergency department for further evaluation and management. Upon evaluation in the emergency department, the patient is awake, alert, and oriented. He states that his pain is greatly improved after administration of morphine. He reports that while at [facility], he has been told that he has been doing better, but states that "I do not see it". He does admit that he has been doing somewhat better with attempted ambulation utilizing a walker. He reports that his weakness persists in the LEFT upper extremity. He is able to lift his LEFT lower leg off the bed which is an improvement. Patient states that he has no issues with eating or drinking, specifically he is not on a special diet for this. Patient reports no prior history of kidney stones or similar pain in the past. He states that prior to CVA, he was only on a prescribed NSAID, Effexor, and atorvastatin. Patient currently denies any headaches, dizziness, lightheadedness, chest pain, palpitations, shortness of breath, nausea, vomiting, fevers, chills, or worsening extremity weakness. Principal Diagnosis sepsis Discharge Exam GENERAL - 65-year-old male appearing his stated age who is in no acute distress HEAD - NC/AT. EYES - PERRL with EOMI bilaterally. Sclera anicteric. EARS - No deformities of external structures noted on gross examination bilaterally. NOSE - Midline and without cyanosis. No epistaxis or purulent drainage noted. MOUTH/OROPHARYNX - Without perioral cyanosis. Buccal mucosa pink and moist and without leukoplakia. NECK - Neck with FROM. Supple to palpation. No nuchal rigidity. LUNGS - CTA B/L. No wheezes, rales, or rhonchi appreciated. CARDIAC - RRR with S1/S2. No murmur, rubs, or gallops appreciated. ABDOMEN - Abdominal contour flat without pulsations or visible masses. BS normoactive all four quadrants. No tenderness to palpation appreciated throughout. No guarding. No Rebound Tenderness. No palpable masses, hepatosplenomegaly, or ascites noted. EXTREMITIES - No clubbing or peripheral cyanosis PSYCH - A&Ox3 and cooperates fully with examiner. Pt is very pleasant and interacts well with examiner. Discharge Data Allergies Allergy/AdvReac Type Severity Reaction Status Date / Time escitalopram [From Lexapro] AdvReac Drowsy Verified 03/23/20 22:35 paroxetine [From Paxil] AdvReac Drowsy Verified 03/23/20 22:35 Consultations 03/24/20 00:03 ED Decision to Admit Stat 03/24/20 02:39 Consult Case Management - Discharge Planning Routine Consult Urology Routine Procedures Performed Operation Date: 03/24/20 10:30 Actual Procedures p Cystoscopy, Ureteral Stent Insertion(Left) - Angelina Clinton MD Ordered Studies 03/23/20 22:13 CT abd pelvis IV con only Urgent 03/24/20 10:00 FL retrograde includes kub Routine Hospital Course (1) Sepsis: Patient developed elevated HR and fever after procedure. Patient did not improve with cipro and ceftriaxone and was placed on imipenem. now on zosyn as sensitivities returned. discharged on iv ampicillin to finish course (2) Ureterolithiasis: S/P stent (3) Renal colic: * P.o. acetaminophen and PRN morphine as needed. (4) Acute urinary retention: Leave meeks at this time - likely related to recent CVA (5) Hydronephrosis: * Continue with appropriate pain management. * Continue with IV fluids. * Appreciate nephrology consultation. (6) Recent cerebrovascular accident (CVA): * Recent CVA with LEFT-sided hemiparesis currently receiving therapy at [facility]. * Will add PT OT to continue with patient's current goals of care. * Patient without special diet at this time (i.e. no restrictions on textures). * Patient was placed on aspirin and Plavix. * (7) Left-sided weakness: * As discussed, continue with PT OT for ongoing goals of care. Total Time Total Time Spent Total Time Spent (In Minutes): 32 Total Time Includes: Examination of the Patient, Discharge Planning and Medication Reconciliation Discharge Plan Discharge Items Patient Disposition: Transfer Inpatient Rehab Fac Reason For Visit: KIDNEY STONE W/ HYDRONEPHROSIS, PAIN CONTROL, Discharge Diagnosis: hydronephrosis, pain control Condition on Discharge: Good Activity: Resume your previous activity Non-emergency contact: Primary Care Provider Call non-emergency contact if: you have any medication questions Follow-up/Referrals: [facility] [Primary Care Provider] - Diet: Regular Addtl Attending Provider Instructions: will recommend continue to be on IV antibiotics for 11 more days. Then can remove IV access. will need to followup with Urology to get MRI of kidney and to remove stent. Pending Studies at Discharge: No Stand-Alone Forms: My [facility] Skilled Items Patient informed of condition?: No DNR: Yes Discharge Level of Care: Acute rehab Communicable Disease: No Discharge Prognosis: Stable Lines: US Guided Peripheral IV Urinary Catheter: Yes Medications and DC Order Prescriptions: New ampicillin sodium 2 gram recon soln 2 g IV Q4H 11 Days Qty: 68 RF: 0 Continued omega [id number] oil [Fish Oil] 1,000 mg (120 mg-180 mg) Capsule 1 cap PO QAM RF: 0 atorvastatin 40 mg Tablet 40 mg PO HS RF: 0 acetaminophen [Tylenol] 325 mg Tablet 650 mg PO Q4 PRN (Reason: Pain) RF: 0 ondansetron HCl 4 mg Tablet 4 mg PO Q8H PRN (Reason: Nausea) RF: 0 venlafaxine 150 mg capsule,extended release 24hr 150 mg PO DAILY RF: 0 clopidogrel [Plavix] 75 mg Tablet 75 mg PO DAILY RF: 0 aspirin [Aspir-81] 81 mg Tablet,Delayed Release (Dr/Ec) 81 mg PO DAILY RF: 0 magnesium hydroxide [Milk of Magnesia] 400 mg/5 mL Suspension 30 ml PO DAILY PRN (Reason: Constipation) RF: 0 ascorbic acid (vitamin C) [Vitamin C] 500 mg Tablet 500 mg PO DAILY RF: 0 pantoprazole 40 mg Tablet,Delayed Release (Dr/Ec) 40 mg PO DAILY RF: 0 lidocaine 5 % Adhesive Patch,Medicated 1 patch TOPICAL DAILY RF: 0 docusate sodium 100 mg Capsule 100 mg PO BID RF: 0 Lidocaine Viscous 2 % Solution 5 ml topical ACHS RF: 0 enoxaparin [Lovenox] 40 mg/0.4 mL Syringe 40 mg SUBCUT DAILY RF: 0 diclofenac sodium [Voltaren] 1 % Gel 2 g TOPICAL QID PRN (Reason: Pain) RF: 0 Foltanx 3-35-2 mg Tablet 1 tab PO DAILY RF: 0 polyethylene glycol 3350 [Miralax] 17 gram Powder In Packet 17 g PO DAILY RF: 0 sennosides-docusate sodium [Senokot-S] 8.6-50 mg Tablet 1 tab-cap PO .QLUNCH RF: 0 tamsulosin [Flomax] 0.4 mg Capsule 0.4 mg PO DAILY RF: 0 Discharge Orders: Discharge Order (Routine); Ordered 03/28/20 Ordered By: Dominick Toscano Admission Data Admit Date/Time: 03/24/20 01:24 Attending Provider: Dominick Toscano Admit Provider: Franklyn Scales Primary Care Provider: [facility] Other Providers: Franklyn Scales ; Jareth Haji ; Dalton Luque ; Kurt Edge I. ; Jerome Jain ; Jo Amador ; Val Becker ; Vargas Singh ; Tanja Louise ; Maria Esther Jones ; Martin Garcia ; Rianna Pena ; Angelina Clinton Other Interventions: Discharge Summary Assessment (RN) Last Done: 03/28/20 14:57 Coding Level of Care Code D/C Day Management >30 mins Diagnoses Sepsis A41.9 Ureterolithiasis N20.1 Renal colic N23 Acute urinary retention R33.8 Hydronephrosis Q62.11 Hydronephrosis type: with ureteropelvic junction obstruction Recent cerebrovascular accident (CVA) Z86.73 Left-sided weakness R53.1
== END 2020-03-28 15:40 | DRG 854 ==
LOC: ED 21:09 → SUATTDRO 03-24 01:24 → 2N 03-24 01:24

== ENCOUNTER 2022-03-21 09:05 | Observation (INO) ==
--- NOTE | 2022-02-04 15:50 | PAT Medication Instructions ---
Medication Instructions Date of Service February 04, 2022 Home Medications Medication Instructions Recorded miscellaneous medical supply #1 ea 11/02/20 atorvastatin 40 mg tablet 40 mg PO HS #90 tabs 01/28/22 bupropion HCl 150 mg 24 hr tablet, 150 mg PO QAM #90 tabs 01/28/22 extended release ascorbic acid (vitamin C) 500 mg tablet (Vitamin C) 500 mg PO QAM aspirin 81 mg tablet,delayed release (Aspir-) 81 mg PO QAM diclofenac sodium 1 % topical gel (Voltaren) 2 g topical QID PRN Pain vitamin B complex 1 cap PO QAM acetaminophen 500 mg tablet (Tylenol Extra Strength) 1,000 mg PO BID Pain atorvastatin 40 mg tablet 40 mg PO HS bupropion HCl 150 mg 24 hr tablet, extended release 150 mg PO QAM celecoxib 200 mg capsule (Celebrex) 200 mg PO QAM cholecalciferol (vitamin D3) 125 mcg (5,000 unit) tablet (Vitamin D3) 125 mcg PO QAM clopidogrel 75 mg tablet (Plavix) 75 mg PO QAM pantoprazole 40 mg tablet,delayed release 40 mg PO QAM tamsulosin 0.4 mg capsule (Flomax) 0.4 mg PO HS venlafaxine 150 mg capsule,extended release 24 hr (Effexor XR) 150 mg PO QAM ASK your surgeon for instructions celecoxib 200 mg capsule (Celebrex) 200 mg PO QAM ASK your prescriber and surgeon clopidogrel 75 mg tablet (Plavix) 75 mg PO QAM (in order for spinal anesthesia, Clopidogrel needs to be stopped 7 days before surgery. Please check if okay with doctor that prescribes this to you) STOP taking 24 hours before surgery diclofenac sodium 1 % topical gel (Voltaren) 2 g topical QID PRN Pain DO NOT take the morning of surgery ascorbic acid (vitamin C) 500 mg tablet (Vitamin C) 500 mg PO QAM vitamin B complex 1 cap PO QAM cholecalciferol (vitamin D3) 125 mcg (5,000 unit) tablet (Vitamin D3) 125 mcg PO QAM Take morning of surgery With a small sip of water, OTHERWISE NOTHING TO EAT OR DRINK AFTER MIDNIGHT: aspirin 81 mg tablet,delayed release (Aspir-) 81 mg PO QAM (continue as normal unless told otherwise by surgeon) acetaminophen 500 mg tablet (Tylenol Extra Strength) 1,000 mg PO BID Pain (if needed) bupropion HCl 150 mg 24 hr tablet, extended release 150 mg PO QAM pantoprazole 40 mg tablet,delayed release 40 mg PO QAM venlafaxine 150 mg capsule,extended release 24 hr (Effexor XR) 150 mg PO QAM Take evening before surgery acetaminophen 500 mg tablet (Tylenol Extra Strength) 1,000 mg PO BID Pain (if needed) atorvastatin 40 mg tablet 40 mg PO HS tamsulosin 0.4 mg capsule (Flomax) 0.4 mg PO HS Other Notes If you have any questions please call us at [phone] or [phone] or [phone] or [phone]
--- NOTE | 2022-02-12 13:02 | Anesthesiology Consultation ---
Date of Service February 12, 2022 Assessment & Plan (1) Encounter for pre-operative examination: Plan - loop recorder in place. - COVID screening: Per assessment on 02/12/2022: Travel screen negative, no known COVID-19 positive contacts or current COVID-19 related symptoms in past 2 weeks. Pt vaccinated. Surgeon arranging preop COVID testing, scheduled 03/19/2022. Awaiting results. Chart Review Chart Review: Acceptable Risk for Surgery and Patient seen in Pre Admission Testing Teaching & Discussion Pre-Anesthesia Teaching/Discussion Notes: Instructed NPO after midnight before surgery, except medications with 15 cc of water. Medication instructions provided according to the PAT guidelines. History Surgery Operation Date: 03/21/22 10:35 Proposed Procedures p Right Total Knee Arthroplasty - Mickey Varela DO Height/Weight Height: 6 ft 2 in Weight: 86.7 kg Allergies Allergy/AdvReac Type Severity Reaction Status Date / Time escitalopram [From Lexapro] AdvReac Mild Drowsy Verified 02/04/22 12:16 paroxetine [From Paxil] AdvReac Mild Drowsy Verified 02/04/22 12:16 Medications Home Medications Medication Instructions Recorded Confirmed Last Taken ascorbic acid (vitamin C) 500 mg 500 mg PO QAM 03/23/20 02/04/22 04/11/20 08:00 tablet (Vitamin C) aspirin 81 mg tablet,delayed 81 mg PO QAM 03/23/20 02/04/22 04/11/20 08:00 release (Aspir-) diclofenac sodium 1 % topical gel 2 g topical QID PRN Pain 03/23/20 02/04/22 04/10/20 (Voltaren) vitamin B complex 1 cap PO QAM 04/09/20 02/04/22 04/11/20 08:00 miscellaneous medical supply #1 ea 11/02/20 02/04/22 Unknown acetaminophen 500 mg tablet 1,000 mg PO BID Pain 10/14/21 02/04/22 Unknown (Tylenol Extra Strength) atorvastatin 40 mg tablet 40 mg PO HS #90 tabs 01/28/22 02/04/22 Unknown bupropion HCl 150 mg 24 hr tablet, 150 mg PO QAM #90 tabs 01/28/22 02/04/22 Unknown extended release celecoxib 200 mg capsule (Celebrex) 200 mg PO QAM 02/04/22 02/04/22 Unknown cholecalciferol (vitamin D3) 125 125 mcg PO QAM 02/04/22 02/04/22 Unknown mcg (5,000 unit) tablet (Vitamin D3) clopidogrel 75 mg tablet (Plavix) 75 mg PO QAM 02/04/22 02/04/22 Unknown pantoprazole 40 mg tablet,delayed 40 mg PO QAM 02/04/22 02/04/22 Unknown release tamsulosin 0.4 mg capsule (Flomax) 0.4 mg PO HS 02/04/22 02/04/22 Unknown venlafaxine 150 mg 150 mg PO QAM 02/04/22 02/04/22 Unknown capsule,extended release 24 hr (Effexor XR) Past Medical History Medical History (Updated 02/12/22 @ 15:31 by Chen Torres PA-C) Anxiety 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 Exercise / Class Metabolic Activity II 4-5 Yardwork/Stairs/Walk up hill (denies CP or SOB with 1 FOS) Past Family History Family History Son Type 1 diabetes Mother Breast cancer Dyslipidemia Father Myocardial infarction Stroke Ischemic dilated cardiomyopathy Brother Hypertension Denies family history of Ovarian cancer Prostate cancer Colorectal cancer Past Surgical History Surgical History H/O arthroscopic knee surgery left with medial meniscus repair H/O hand surgery LEFT INDEX FINGER (TENDON REPAIR) History of carpal tunnel surgery of right wrist History of colonoscopy 2013 and 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 2014 - Tubular Adenoma. History of cystoscopy cystoscopy, stent placement: 03/24/20: MAC sedation at [facility] History of loop recorder insert by Dr. Schmitz - 07/2020 - 3 months post CVA - no current issues - follows Dr. Schmitz yearly History of repair of rotator cuff RT History of surgery on right wrist proximinal row History of tooth extraction S/P foot surgery right-05/06/2019 left-09/02/2021 Past Anesthesia History No Hx of Anesthesia Complications and No Family Hx of Anesthesia Complications History of PONV No Hx of PONV and No Hx of Motion Sickness Social History Smoking Status: Former smoker tobacco type: cigarettes Smoking cigarettes per day: 1/2 pk /day Do You Dip or Chew Tobacco: No Smoking End Date: 45 years ago Hx Alcohol Use: Yes Alcohol type: beer alcohol intake frequency: a few times a month Hx Substance Use: No substance use type: does not use Review of Systems Patient denies chest pain, shortness of breath, dyspnea on exertion, reflux, fever, chills, cough, wheezing, or palpitations. Physical Exam Vital Signs Vitals BP 142/74 P 87 TEMP 98.6 SP02 98% on RA RESP 17 Physical Full cervical extension range of motion without pain TMD 3.5 finger breadths Mallampati Score 3 Dentition: intact, caps/crowns throughout; denies chipped or loose teeth, implants or bridges Lungs: normal respiratory effort. Clear throughout to auscultation, no adventitious breath sounds Cardiac: regular rate and rhythm, no murmurs noted Carotid arteries: negative bruit bilat Lab Results Anesthesia Preop Results Results Anesthesia Widget: WBC 8.11 K/ul (4.8-10.8) 02/12/22 Hgb 14.0 g/dl (14.0-18.0) 02/12/22 Hct 40.5 % (40.1-51.0) 02/12/22 Plt 280 K/uL (130-400) 02/12/22 Na 139 mmol/L (136-145) 02/12/22 K 3.7 mmol/L (3.5-5.1) 02/12/22 Cl 107 mmol/L (98-107) 02/12/22 CO2 24 mmol/L (21-32) 02/12/22 BUN 26 mg/dl (6-23) H 02/12/22 Creat 0.92 mg/dl (0.6-1.4) 02/12/22 Glucose Level 132 mg/dl (70-99(Fasting)) H 02/12/22 PT 10.9 Seconds (9.0-12.0) 02/12/22 PTT 29.6 Seconds (21.0-31.0) 02/12/22 INR 1.0 (0.9-1.1) 02/12/22 Blood Type O Positive 02/12/22 Antibody Screen NEGATIVE 02/12/22 Testing Electrocardiogram Date: 02/12/22 NSR, rate 86 bpm Chest X-Ray Date: 02/12/22 A loop recorder is seen. The cardiomediastinal silhouette is normal. The lungs are clear. No evidence of pleural effusion or pneumothorax. IMPRESSION: No acute chest disease. Echocardiogram Date: 03/09/20 EF 55-60% Normal LV wall motion No significant valvular abnormalities Other Testing Loop recorder 02/05/22 DIY NSR
--- NOTE | 2022-03-20 11:12 | History & Physical Report ---
Date of Service March 20, 2022 Assessment & Plan (1) Right knee DJD: We will proceed with a right total knee arthroplasty. Postoperatively he will be started on aspirin and Plavix for DVT prophylaxis. To be kept overnight in the hospital for postoperative medical management. He plans to use [facility] physi melly therapy upon discharge. History of Present Illness Chief Complaint: Osteoarthritis of the right knee. Primary Care Provider: Sagar Louise MD Gary is a [id number] who suffered a stroke in 2019. He wears an AFO on his left leg and he ambulateswith a crutch due to hip weakness. Unfortunately, he is dealing with bilateral knee pain. The right knee is hurting him more than his left. X-rays and clinical examination have been diagnostic for advanced osteoarthritis of the right knee. After failing conservative treatment, he has elected to proceed with a right total knee arthroplasty. . Allergies Allergy/AdvReac Type Severity Reaction Status Date / Time escitalopram [From Lexapro] AdvReac Mild Drowsy Verified 02/04/22 12:16 paroxetine [From Paxil] AdvReac Mild Drowsy Verified 02/04/22 12:16 Home Medications Medication Instructions Recorded Confirmed Type ascorbic acid (vitamin C) 500 mg 500 mg PO QAM 03/23/20 02/04/22 History tablet (Vitamin C) aspirin 81 mg tablet,delayed 81 mg PO QAM 03/23/20 02/04/22 History release (Aspir-) diclofenac sodium 1 % topical gel 2 g topical QID PRN Pain 03/23/20 02/04/22 History (Voltaren) vitamin B complex 1 cap PO QAM 04/09/20 02/04/22 History miscellaneous medical supply #1 ea 11/02/20 02/04/22 Rx acetaminophen 500 mg tablet 1,000 mg PO BID Pain 10/14/21 02/04/22 History (Tylenol Extra Strength) atorvastatin 40 mg tablet 40 mg PO HS #90 tabs 01/28/22 02/04/22 Rx bupropion HCl 150 mg 24 hr tablet, 150 mg PO QAM #90 tabs 01/28/22 02/04/22 Rx extended release celecoxib 200 mg capsule (Celebrex) 200 mg PO QAM 02/04/22 02/04/22 History cholecalciferol (vitamin D3) 125 125 mcg PO QAM 02/04/22 02/04/22 History mcg (5,000 unit) tablet (Vitamin D3) clopidogrel 75 mg tablet (Plavix) 75 mg PO QAM 02/04/22 02/04/22 History pantoprazole 40 mg tablet,delayed 40 mg PO QAM 02/04/22 02/04/22 History release tamsulosin 0.4 mg capsule (Flomax) 0.4 mg PO HS 02/04/22 02/04/22 History venlafaxine 150 mg 150 mg PO QAM 02/04/22 02/04/22 History capsule,extended release 24 hr (Effexor XR) Past Med/Surg History Medical History Anxiety 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 2013 - Tubular Adenoma. History of cystoscopy cystoscopy, stent placement: 03/24/20: MAC sedation at [facility] History of loop recorder insert by Dr. Schmitz - 07/2020 - 3 months post CVA - no current issues - follows Dr. Schmitz yearly History of repair of rotator cuff RT History of surgery on right wrist proximinal row History of tooth extraction S/P foot surgery right-05/06/2019 left-09/02/2021 Family History Son Type 1 diabetes Mother Breast cancer Dyslipidemia Father Myocardial infarction Stroke Ischemic dilated cardiomyopathy Brother Hypertension Denies family history of Ovarian cancer Prostate cancer Colorectal cancer Social History Smoking Status: Never smoker Tobacco Type: Cigarettes Years Smoked: 2; Cigarettes Per Day: 1/2 pk /day; Second Hand Exposure: No; Hx Alcohol Use: Yes Alcohol type: beer Hx Substance Use: No Preferred Language: Kiswahili Communication Ability: Effective Visual Impairment: No Limitations Hearing Ability: Normal Day Care Aide Required: No Beliefs That Will Affect Care: None marital status: Current Living Situation: Spouse Current Living Situation Comment: [employer] current occupational status: retired Feels Safe at Home: Yes Diet Comment: regular caffeine: Yes (coffee 1 per day soda 1 per day.) during the past year weight has: remained stable Dental Care, Regularly: Yes Physical Activity Frequency: Other Seatbelt Use: always Sunscreen Use: No Assistive Devices: Cane Review of Systems All systems reviewed & are unremarkable except as noted in HPI & below. Physical Exam On physical examination the right knee, he has a slight varus deformity. He is range of motion of 0 to 110 degrees. He has no instability. He has pain over the distal femoral condyles and over the joint line.. Constitutional WD/WN, vitals as above Eyes PERRL, conjunctivae normal, anicteric sclerae ENMT external ear and nose normal, oropharynx normal Neck trachea midline, no thyromegaly Respiratory normal respiratory effort, lungs clear to auscultation Cardiovascular RRR, no murmur, no edema Gastrointestinal (Abdomen) normal bowel sounds, soft, nontender, no hepatosplenomegaly Skin no rashes, warm and dry Psychiatric A+Ox3, euthymic affect Results & Data Results & Data Laboratory Results . Diagnostic Findings X-rays of the right knee show advanced osteoarthritis with joint space narrowing, osteophyte formation, and [id number] articulation. PG Care Time/CCT Total # of Minutes Spent Total Time Spent with Patient: Total time spent is greater than 50% in coordination of care (as documented) at patient's floor/unit and/or counseling patient: Coding Level of Care Code None Diagnoses Right knee DJD M17.11
[~2022-03-21 09:05] MED LIST changes: +ACETAMINOPHEN 500 MG TAB PO SCH; -ASPCH81; +BUPIVACAINE 0.5 % 5 MG/1 ML PF 10ML VIAL ONE; -CEPH500C PO; +FAMOTIDINE 20 MG TAB PO SCH; +GABAPENTIN 300 MG CAP PO SCH; +Ketorolac (*for OR use only*) 30 MG, dexAMETHasone 4 MG, KETAMINE HCL (**OR use only) 1... INFIL SCH; +LR 500ML BOLUS, THEN 15ML/HR IV SCH; +LR 60ML/HR IV SCH; -MULT-506 PO; -OMEG10007 PO; +ROPIVACAINE 0.5% 5 MG/ML 30 ML VIAL ONE; -TRAM-10 PO; +TRANEXAMIC ACID 1,000 MG **IV Intra-op IV SCH; +TRANEXAMIC ACID 1,000 MG **IV Pre-op IV SCH; -[UNRECOGNIZED DRUG - REMARK]; -[UNRECOGNIZED DRUG - REMARK]; +ceFAZolin 2000MG 2,000 MG/15 ML SYR IV SCH; +dexAMETHasone 4 MG TAB PO SCH
[2022-03-21] MEDS ORDERED: PROPOFOL IV EMULSION 10 MG/ML 20 ML VIAL IV ONE (10:13)
[2022-03-21] MEDS ORDERED: LIDOCAINE 2% 20 MG/ML 5 ML SYR IV ONE (10:13)
[2022-03-21] MEDS ORDERED: fentaNYL citrate 100 MCG/2 ML VIAL ONE (10:14)
[2022-03-21] MEDS ORDERED: MIDAZOLAM HCL 1 MG/ML 2ML VIAL ONE (10:14)
--- NOTE | 2022-03-21 10:48 | History & Physical Bridge Note ---
Date of Service March 21, 2022 History & Physical Bridge Note I have examined the patient, reviewed the History & Physical and in the interval since the performance of the History & Physical I have noted the following changes of clinical significance: no changes noted
[2022-03-21] MEDS ORDERED: ORTHO JOINT ANESTHETIC ONE (11:10)
[2022-03-21] MEDS ORDERED: ePHEDrine sulfate 50 MG/ML AMP IV PRN (11:29)
[2022-03-21] MEDS ORDERED: ONDANSETRON INJ 2 MG/ML 2 ML VIAL IV PRN ×2 (11:29→15:11)
[2022-03-21] MEDS ORDERED: fentaNYL citrate 100 MCG/2 ML VIAL IV PRN (11:29)
[2022-03-21] MEDS ORDERED: ATROPINE SULFATE 0.1 MG/ML 10ML SYR IV PRN (11:29)
[2022-03-21] MEDS ORDERED: HYDROmorphone INJ 2 MG/ML SYR/VIAL IV PRN (11:29)
[2022-03-21] MEDS ORDERED: ONDANSETRON INJ 2 MG/ML 2 ML VIAL ONE (12:43)
--- NOTE | 2022-03-21 13:13 | Operative Report ---
PG Post Operative Report Pre & Post Diagnosis Operation Date: 03/21/22 11:40 Pre-Op Diagnosis: Right Knee Degenerative Joint Disease Post-Op Diagnosis: Right Knee Degenerative Joint Disease I identified the patient and participated in the time-out.: Yes Procedure Operation Date: 03/21/22 11:40 Actual Procedures p Right Total Knee Arthroplasty(Right) - Mickey Varela DO Surgeon Mickey Varela DO Fuel Retrofitting Technician Mickey Burns PA-C Estimated Blood Loss 50 Findings Consistent with Post-Op Diagnosis Specimens Right femoral and tibial bone Description of Procedure Implants used: I used a [employer] Person[employer] total knee arthroplasty system with a size 11 standard CR femur, G tibia, 37 oval patella, and a size 12 medial congruent polyethylene bearing. All components were cemented in place with Biomet cement. Vargas arrived [facility] for the above procedure. He was seen in the preoperative holding area and the operative extremity was identified and signed. He was given a preoperative antibiotic, TXA, a spinal anesthetic and an adductor nerve block. He was taken back to the operating room and laid on the table in supine position. He was given basic sedation. The operative knee was then prepped and draped in sterile fashion. A timeout was done, and the patient and the operative extremity was properly identified. A midline incision was made directly over the patella. Dissection was taken down to the extensor mechanism. A subvastus arthrotomy was used. The medial retinaculum was released and the fat pad was mostly excised. The knee was flexed and the ACL, PCL, and meniscus were removed. A drill was sent down the center of the femoral canal followed by an intramedullary candice. Off that candice a distal femoral cutting block was placed. 9 mm was resected off the distal femur at 5 of valgus. A posterior referencing AP sizing guide was then placed on the distal femur. The femur measured to be a size 11. 2 drill holes were placed in 3 of external rotation. A 4-in-1 cutting block was then impacted into place. Anterior, posterior, and chamfer cuts were then made. The proximal tibia was then exposed. An external tibial alignment guide was placed. A tibial cut guide was then anchored in place and the proximal tibia was then resected. The posterior aspect of the knee was then opened up and any additional meniscus fragments and osteophytes were removed. The tibia measured to be a size G. The tibial plate was then placed in the appropriate rotation and the tibia was drilled and punched. Trial components were then placed. I used a size 12 medial congruent polyethylene insert. The knee was brought through a full range of motion and felt to be stable. The peg holes for the femoral component were then drilled. The patella was then everted and 9 mm was resected off the posterior aspect of the patella. The patella measured to be a size 37 oval. 3 peg holes were then drilled. A trial patella was placed. The knee was once again brought through a full range of motion and felt to be stable. Trial components were then removed. The surrounding soft tissues were injected with 100 cc of an orthopedic pain control cocktail. All components were then cemented into place with Biomet cement. The final polyethylene insert was then snapped into place. Once cement was dry the tourniquet was deflated. Hemostasis was obtained. A dilute betadyne lavage was then done for 3 minutes. The joint was then irrigated with normal saline solution. The subvastus ar throtomy was then closed with #1 Vicryl suture. The skin was closed with 2-0 Vicryl, 3-0V lock suture, and iban. A soft compressive dressing was placed. He was then transferred to a hospital bed and taken to the postanesthesia care unit in stable condition. He tolerated the procedure well. Mickey Burns PA-C, was present for the entire procedure. He was critical for patient positioning, prepping, draping, retraction exposure, wound closure and application of sterile dressing. I attest to the content of the Intraoperative Record and any orders documented therein. Any exceptions are noted below.
--- NOTE | 2022-03-21 14:12 | XRay Report ---
XR knee RT 1 or 2V routine CLINICAL HISTORY: Surgical Post Op TECHNIQUE: 2 views of the right knee were obtained. Comparison: None available at the time of this dictation. FINDINGS: Patient is status post total knee arthroplasty with expected postsurgical changes including soft tiss ue swelling and subcutaneous emphysema. No periarticular lucency or hardware fracture is seen. IMPRESSION: Degenerative changes without evidence of acute injury. ACT 112: Negative or not required by law. Electronically signed by: Yadiel Johnson M.D. 03/21/2022 2:11 PM
[2022-03-21] MEDS: SODIUM CHLORIDE 0.9% 1000ML 1,000 ML IV SCH (15:00)
--- NOTE | 2022-03-21 15:08 | Anesthesiology Progress Note ---
Date of Service March 21, 2022 Anesthesia Post Procedure Vital Signs Vital Signs: Temp Pulse Pulse Resp BP Pulse Ox O2 Del Method 03/21/22 14:30 71 16 117/78 94 Room Air 03/21/22 14:15 36.7 C 72 14 129/90 93 Room Air 03/21/22 14:05 70 22 120/86 94 Room Air 03/21/22 13:55 66 14 132/81 98 Oxymask 03/21/22 13:45 66 21 116/76 97 Oxymask 03/21/22 13:37 36.3 C L 70 14 123/84 94 Oxymask 03/21/22 09:50 36.3 C L 79 20 144/91 H 97 Room Air 03/21/22 09:50 CPAP O2 Flow Rate 03/21/22 14:30 03/21/22 14:15 03/21/22 14:05 03/21/22 13:55 6 03/21/22 13:45 6 03/21/22 13:37 6 03/21/22 09:50 03/21/22 09:50 Transfer of Care Handoff Completed per policy Notes Mental Status: alert / awake / arousable and participated in evaluation Patient Amnestic to Procedure: Yes Nausea / Vomiting: adequately controlled Pain: adequately controlled Airway Patency, RR, SpO2: stable & adequate BP & HR: stable & adequate Hydration State: stable & adequate Anesthetic Complications: no major complications apparent and Pt Satisfied with anesthetic care
[2022-03-21] MEDS ORDERED: bisacodyL 10 MG SUPP PR PRN (15:11)
[2022-03-21] MEDS ORDERED: MAGNESIUM HYDROXIDE SUSP 30 ML UDC PO PRN (15:11)
[2022-03-21] MEDS ORDERED: NALOXONE HCL 0.4 MG/1 ML VIAL/CARP IV PRN (15:11)
[2022-03-21] MEDS ORDERED: HYDROmorphone INJ 0.5 MG/0.5 ML SYR IV PRN (15:11)
[2022-03-21] MEDS ORDERED: METOCLOPRAMIDE HCL INJ 5 MG/ML 2 ML VIAL IV PRN (15:11)
[2022-03-21] MEDS ORDERED: oxyCODONE HCL IR 5 MG TAB (IMMEDIATE RELEASE) PO PRN (15:11)
[2022-03-21] MEDS: ACETAMINOPHEN 500 MG TAB PO SCH ×3 (15:59→22:14)
[2022-03-21] MEDS: KETOROLAC TROMETHAMINE 15 MG/ML VIAL IV SCH ×2 (16:02→20:16)
[2022-03-21] MEDS: ceFAZolin 2000MG 2,000 MG/15 ML SYR IV SCH (20:11)
[2022-03-21] MEDS: DOCUSATE SODIUM 100 MG CAP PO SCH (20:15)
[2022-03-21] MEDS ORDERED: SENNA 8.6 MG TAB PO SCH (21:00)
[2022-03-21] MEDS ORDERED: TAMSULOSIN HCL 0.4 MG CAP PO SCH (21:00)
[2022-03-21] MEDS ORDERED: ATORVASTATIN 40 MG TAB PO SCH (21:00)
[2022-03-22] MEDS: SODIUM CHLORIDE 0.9% 1000ML 1,000 ML IV SCH (01:06)
[2022-03-22] MEDS: KETOROLAC TROMETHAMINE 15 MG/ML VIAL IV SCH ×2 (04:10→09:13)
[2022-03-22] MEDS: ceFAZolin 2000MG 2,000 MG/15 ML SYR IV SCH (04:10)
[2022-03-22] MEDS: ACETAMINOPHEN 500 MG TAB PO SCH (06:30)
[2022-03-22] MEDS ORDERED: PNEUMOCOCCAL POLYSACCHARIDES 25 MCG/0.5 ML VIAL/SYR IM ONE (07:00)
--- NOTE | 2022-03-22 07:43 | Orthopedic Progress Note ---
Date of Service March 22, 2022 Assessment & Plan (1) Status post right knee replacement: Overall he is doing very well. He is not having much pain in the right knee. He will be seen by physical therapy today for ambulation and range of motion exercises. He is on aspirin and Plavix for DVT prophylaxis. He can be discharged home later today. He will follow-up with orthopedics in 2 weeks. Mariana Kaye was seen and examined at bedside this morning. Overall he is doing very well. Is not having much pain in the right knee. Has been up and ambulating on it. He has no complaints.. Review of Systems All systems reviewed & are unremarkable except as noted in HPI & below. Physical Exam On physical examination of the right knee, the dressing is clean and dry. His leg is out full extension. He is active dorsiflexion plantarflexion of his right ankle.. Results & Data Results & Data Laboratory Results . Diagnostic Findings Postoperative x-rays of the right knee show the prosthesis to be in anatomic alignment without any evidence of fracture, desiccation, or loosening. PG Care Time/CCT Total # of Minutes Spent Total Time Spent with Patient: Total time spent is greater than 50% in coordination of care (as documented) at patient's floor/unit and/or counseling patient: Coding Level of Care Code 22163 Post Operative Follow-Up Diagnoses Status post right knee replacement Z96.651
--- NOTE | 2022-03-22 07:44 | Discharge Summary ---
Date of Service March 22, 2022 Admission HPI (Per Admitting) Gary is a [id number] who suffered a stroke in 2019. He wears an AFO on his left leg and he ambulateswith a crutch due to hip weakness. Unfortunately, he is dealing with bilateral knee pain. The right knee is hurting him more than his left. X-rays and clinical examination have been diagnostic for advanced osteoarthritis of the right knee. After failing conservative treatment, he has elected to proceed with a right total knee arthroplasty. . Admission Exam (Per Admitting) On physical examination the right knee, he has a slight varus deformity. He is range of motion of 0 to 110 degrees. He has no instability. He has pain over the distal femoral condyles and over the joint line.. Principal Diagnosis Same as "Discharge Diagnosis" noted below under Discharge Instructions. Discharge Exam On physical examination of the right knee, the dressing is clean and dry. His leg is out full extension. He is active dorsiflexion plantarflexion of his right ankle.. Discharge Data Procedures Performed Operation Date: 03/21/22 11:40 Actual Procedures p Right Total Knee Arthroplasty(Right) - Mickey Varela DO Ordered Studies 03/21/22 05:00 US - OR guided needle placemen Routine Hospital Course (1) Status post right knee replacement: On March 21, 2022 Vargas arrived at [facility] and underwent a right knee replacement without complication. He had a spinal anesthetic. Postoperatively he was started back on his Plavix and aspirin for DVT prophylaxis and transferred to the general orthopedic floors. His hospital course was uneventful. On postop day #1, his vital signs were stable and his pain was well controlled. He was able to participate well with physical therapy doing ambulation and range of motion exercises. He was then discharged home. He will follow-up with orthopedics in 2 weeks. PG Care Time/CCT Total # of Minutes Spent Total Time Spent with Patient: Total time spent is greater than 50% in coordination of care (as documented) at patient's floor/unit and/or counseling patient: Discharge Plan Discharge Items Patient Disposition: Home - Home Health Services Reason For Visit: POST OP Discharge Diagnosis: Right knee replacement Activity: Per Instructions section Non-emergency contact: Surgeon Call non-emergency contact if: your wound has increased redness and your wound has increased drainage Follow-up/Referrals: Sagar Louise MD [Primary Care Provider] - Diet: Regular Addtl Attending Provider Instructions: Activity and Therapy Recommendations: * If you are using [facility] then therapy will be provided at your home until they feel you have accomplished all of your goals. * If you are using [facility] then Physical Therapy will be provided until they feel you are ready to start Outpatient Physical Therapy. * If you are not using home therapy then Outpatient Physical Therapy should start about 3-5 days from your day of surgery. Therapy will last about 6-10 weeks * It is important not to put a pillow under your knee when you are relaxing or sleeping. It is just as important to make sure you are getting your knee perfectly straight as it is to regain your knee bend. * You were shown a series of exercises in the hospital. Do these exercises three times each day including the exercises you were shown in physical therapy. * Get up and walk several times each day. For the first four weeks, try not to stand or walk for more than one hour at a time. If you do stand or walk for more than one hour, you will not hurt anything, but your leg will likely swell. * As you feel comfortable, you may change from the walker or crutches to a cane and then to independent walking. Medications: * Narcotic You will likely be sent home from the hospital with a prescription for the narcotic pain medication that worked best throughout your stay. * Aspirin Most patients will be required to take Aspirin 81mg twice a day for 6 weeks after surgery. This is obtained [id number] and a prescription is not necessary. * Other medications may be prescribed for specific circumstances. If you have any questions, please call the office at . * Resume previous home medications unless otherwise instructed TEDs/Elastic Stockings: The white elastic stockings help limit swelling and prevent blood clots from forming in your legs.~ The more you wear them, the more they work. Wear them for six weeks. Dressing Care: The dressing can be changed after physical therapy on postop day #1. Daily dry dressing changes for a few days, especially if the incision is still draining some. If the incision is not draining then you may leave the iban open to air. If there is a little bit of drainage or if the iban are getting stuck on your clothing then cover the incision with a dry dressing. The iban will be removed at your 2 week follow-up appointment. Showering: You may shower 5 days from the day of surgery as long as the incision is no longer draining. You may shower with the iban exposed. Let soapy water run over the iban and pat them dry. Do not scrub or soak the incision. Things To Watch For: * Drainage from the incision site that occurs more than one week after your surgery. * Increased redness at the incision site. * Fever above 102 degrees Fahrenheit. * Unusual chest pain or shortness of breath. * Call [facility] at with any of the above problems Follow-Up Visit: Follow-up with Dr. Varela's PA (Mickey Burns) 2-3 weeks after your day of surgery. He will remove your iban and answer any questions. If you have any additional questions or concerns, Dr Varela is usually in the office at the same time and will be available An appointment was probably scheduled when you signed-up for surgery in the office. If you have any questions call Office Instructions: More detailed instructions as well as Frequently Asked Questions were provided in a folder by our office when you signed-up for surgery. Please review these instructions when you get home. If you have any further questions or concerns, please feel free to call the office at [phone] Pending Studies at Discharge: No Stand-Alone Forms: [facility] [employer], Smoking Cessation Medications and DC Order Prescriptions: New oxycodone-acetaminophen 5-325 mg tablet 1 tab PO Q6H PRN (Reason: pain) Qty: 30 0RF Continued (DME) miscellaneous medical supply Package See Rx Instructions .ROUTE .MEDSUPPLY Qty: 1 0RF Rx Instructions: CPAP Supplies atorvastatin 40 mg tablet 40 mg PO HS Qty: 90 3RF acetaminophen [Tylenol Extra Strength] 500 mg tablet 1,000 mg PO BID vitamin B complex Capsule 1 cap PO QAM aspirin [Aspir-81] 81 mg Tablet,Delayed Release (Dr/Ec) 81 mg PO QAM ascorbic acid (vitamin C) [Vitamin C] 500 mg Tablet 500 mg PO QAM diclofenac sodium [Voltaren] 1 % Gel 2 g TOPICAL QID PRN (Reason: Pain) cholecalciferol (vitamin D3) [Vitamin D3] 125 mcg (5,000 unit) Tablet 125 mcg PO QAM celecoxib [Celebrex] 200 mg capsule 200 mg PO QAM venlafaxine [Effexor XR] 150 mg capsule,extended release 24hr 150 mg PO QAM clopidogrel [Plavix] 75 mg tablet 75 mg PO QAM tamsulosin [Flomax] 0.4 mg capsule 0.4 mg PO HS pantoprazole [Protonix] 40 mg tablet,delayed release (DR/EC) 40 mg PO QAM Rx Instructions: TAKE 1 TABLET DAILY bupropion HCl [Wellbutrin XL] 150 mg tablet extended release 24 hr 150 mg PO QAM Discharge Orders: Discharge Order (Routine); Ordered 03/22/22 Ordered By: Mickey Varela Admission Data Admit Date/Time: 03/21/22 13:41 Attending Provider: Mickey Varela Admit Provider: Mickey Varela Primary Care Provider: Sagar Louise
[2022-03-22] MEDS ORDERED: dexAMETHasone 4 MG TAB PO SCH (08:00)
[2022-03-22] MEDS ORDERED: MULTIVITAMIN TAB PO SCH (09:00)
[2022-03-22] MEDS ORDERED: buPROPion XL 150 MG TABCR PO SCH (09:00)
[2022-03-22] MEDS ORDERED: CLOPIDOGREL BISULFATE 75 MG TAB PO SCH (09:00)
[2022-03-22] MEDS ORDERED: VENLAFAXINE HCL XR 150 MG CAPXR PO SCH (09:00)
[2022-03-22] MEDS ORDERED: ASPIRIN 81 MG ECTAB PO SCH (09:00)
[2022-03-22] MEDS: DOCUSATE SODIUM 100 MG CAP PO SCH (09:14)
== END 2022-03-22 12:35 | disposition home or self-care (01) ==
LOC: ASU 09:05 → 3E 09:05

== ENCOUNTER 2022-04-10 19:20 | Inpatient (IN) ==
[2022-04-10 20:05] LABS: Hematocrit (blood only) 35.7 % (40.1-51.0); Hemoglobin 11.9 g/dl (14.0-18.0); Mean Corpuscular Hemoglobin 30.3 pg (25.0-34.0); Mean Corpuscular Hgb Conc 33.3 g/dL (32.0-36.0); Mean Corpuscular Volume 90.8 fL (80.0-100.0); Mean Platelet Volume 9.3 fL (9.4-12.4); Platelet Count 363 K/uL (130-400); RDW Coefficient of Variation 13.6 % (11.5-14.5); RDW Standard Deviation 44.7 fL (36.4-46.3); Red Blood Count 3.93 M/uL (4.63-6.08); White Blood Count 13.74 K/ul (4.8-10.8)
--- NOTE | 2022-04-10 20:12 | XRay Report ---
SINGLE VIEW CHEST CLINICAL HISTORY: Sepsis. FINDINGS: An AP, portable, upright chest radiograph is compared to study dated 02/12/2022. An electron ic device projects over the left lower chest. The cardiomediastinal silhouette is unremarkable. Emphy sema and chronic interstitial thickening is similar to previous. Scarring/atelectasis is noted at the lung bases. No airspace consolidation or large pleural effusion is identified. No pneumothorax is se en. The skeletal structures are osteopenic. The bony thorax is grossly intact. IMPRESSION: Emphysematous change with no active disease in the chest. ACT 112: Negative or not required by law. Electronically signed by: Morteza Hickey M.D. 04/10/2022 8:11 PM
[2022-04-10 20:24] LABS: Basophils # (auto) 0.02 K/uL (0-0.2); Basophils % (auto) 0.1 %; Immature Granulocytes # (auto) 0.06 K/uL (0.00-0.02); Immature Granulocytes % (auto) 0.4 %; Lymphocytes # (auto) 0.35 K/uL (1.2-3.4); Lymphocytes % (auto) 2.5 %; Monocytes # (auto) 0.87 K/uL (0.24-0.82); Monocytes % (auto) 6.3 %; Neutrophils # (auto) 12.44 K/uL (1.4-6.5); Neutrophils % (auto) 90.7 %; Polychromasia 1+
[2022-04-10 20:28] LABS: Alanine Aminotransferase 10 U/L (7-52); Albumin Level 4.1 gm/dl (3.4-5.0); Alkaline Phosphatase 104 U/L (34-104); Anion Gap 13 (3-11); Aspartate Aminotransferase 14 U/L (13-39); BUN Creatinine Ratio 23.1 (10-20); Bilirubin,Total 1.1 mg/dl (0.2-1.0); Blood Urea Nitrogen 21 mg/dl (6-23); Calcium 9.2 mg/dl (8.5-10.1); Carbon Dioxide 19 mmol/L (21-32); Chloride 106 mmol/L (98-107); Est GFR (African American) 102.1 ml/min; Est GFR (Non-African American) 88.1 ml/min; Globulin 2.1 gm/dl (2.5-4.0); Glucose 122 mg/dl (70-99(Fasting)); Magnesium 1.5 mg/dl (1.7-2.4); Potassium 3.8 mmol/L (3.5-5.1); Sodium 138 mmol/L (136-145); Total Protein 6.2 gm/dl (6.0-8.3)
[2022-04-10 20:36] LABS: INR 1.1 (0.9-1.1); Partial Thromboplastin Ratio 1.1; Partial Thromboplastin Time 31.3 Seconds (21.0-31.0); Prothrombin Time 11.4 Seconds (9.0-12.0)
[2022-04-10] MEDS ORDERED: VANCOMYCIN HCL 2,000 MG in SODIUM CHLORIDE 0.9% 500 ML IV ONE (20:45)
[2022-04-10] MEDS ORDERED: VANCOMYCIN CONSULT ACTIVE PRN (20:45)
--- NOTE | 2022-04-10 20:48 | Emergency Department Note ---
History of Present Illness General Chief complaint: Knee Injury/Pain Stated complaint: POST OP KNEE PAIN, SWELLING AND FEELS WARM, FEVER Time Seen by Provider: 04/10/22 20:21 History of Present Illness Maximum Pain Intensity: 6 67-year-old male presents to the ED with a chief complaint of concerns about a possible right knee infection. The patient had a right knee replacement by Dr. Mickey Varela 3 weeks ago. Today he developed some pain behind his knee and his knee began feeling hot to touch. He also states there is redness in the anterior knee that was not there previously. He had a fever 100.7 at home. Pain is worse with pain. No nausea vomiting. No other complaints. He is on aspirin and Plavix. Home Medications Medication Instructions Recorded Confirmed Type ascorbic acid (vitamin C) 500 mg 500 mg PO QAM 03/23/20 04/10/22 History tablet (Vitamin C) vitamin B complex 1 cap PO QAM 04/09/20 04/10/22 History miscellaneous medical supply #1 ea 11/02/20 02/04/22 Rx acetaminophen 500 mg tablet 1,000 mg PO BID Pain 10/14/21 04/10/22 History (Tylenol Extra Strength) atorvastatin 40 mg tablet 40 mg PO HS #90 tabs 01/28/22 04/10/22 Rx celecoxib 200 mg capsule (Celebrex) 200 mg PO QAM 02/04/22 04/10/22 History cholecalciferol (vitamin D3) 125 125 mcg PO QAM 02/04/22 04/10/22 History mcg (5,000 unit) tablet (Vitamin D3) clopidogrel 75 mg tablet (Plavix) 75 mg PO QAM 02/04/22 04/10/22 History pantoprazole 40 mg tablet,delayed 40 mg PO QAM 02/04/22 04/10/22 History release (Protonix) tamsulosin 0.4 mg capsule (Flomax) 0.4 mg PO HS 02/04/22 04/10/22 History venlafaxine 150 mg 150 mg PO QAM 02/04/22 04/10/22 History capsule,extended release 24 hr (Effexor XR) bupropion HCl 150 mg 24 hr tablet, 150 mg PO QAM 03/21/22 04/10/22 History extended release (Wellbutrin XL) oxycodone-acetaminophen 5 mg-325 1 tab PO Q6H PRN pain #30 tabs 03/21/22 04/10/22 Rx mg tablet aspirin 81 mg tablet,delayed 81 mg PO DAILY 04/10/22 04/10/22 History release diclofenac sodium 1 % topical gel 2 g topical QID PRN Pain 04/10/22 04/10/22 History Allergies Allergy/AdvReac Type Severity Reaction Status Date / Time escitalopram [From Lexapro] AdvReac Mild Drowsy Verified 04/10/22 22:59 paroxetine [From Paxil] AdvReac Mild Drowsy Verified 04/10/22 22:59 Past Med/Surg History Medical History Anxiety 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 2013 - Tubular Adenoma. History of cystoscopy cystoscopy, stent placement: 03/24/20: MAC sedation at [facility] History of loop recorder insert by Dr. Schmitz - 07/2020 - 3 months post CVA - no current issues - follows Dr. Schmitz yearly History of repair of rotator cuff RT History of surgery on right wrist proximinal row History of tooth extraction S/P foot surgery right-05/06/2019 left-09/02/2021 Family History Son Type 1 diabetes Mother Breast cancer Dyslipidemia Father Myocardial infarction Stroke Ischemic dilated cardiomyopathy Brother Hypertension Denies family history of Ovarian cancer Prostate cancer Colorectal cancer Social History Smoking Status: Former smoker Tobacco Type: Cigarettes Years Smoked: 2; Cigarettes Per Day: 1/2 pk /day; Second Hand Exposure: No; Hx Alcohol Use: Yes Alcohol type: beer Hx Substance Use: No Preferred Language: [place] Communication Ability: Effective Visual Impairment: No Limitations Hearing Ability: Normal House Carpenter Required: No Beliefs That Will Affect Care: None marital status: Current Living Situation: Spouse Current Living Situation Comment: [employer] current occupational status: retired Feels Safe at Home: Yes Diet Comment: regular caffeine: Yes (coffee 1 per day soda 1 per day.) during the past year weight has: remained stable Dental Care, Regularly: Yes Physical Activity Frequency: Other Seatbelt Use: always Sunscreen Use: No Assistive Devices: Cane, Walker and Wheelchair Review of Systems A total of 10 systems reviewed and were otherwise negative Physical Exam Vital Signs Vital Signs - 24 hr 04/10/22 19:24 04/10/22 23:02 04/10/22 23:02 Temperature 37.1 C 37.5 C Temperature Source Oral Oral Pulse Rate 135 H Pulse Rate [Finger] 112 H Pulse Rhythm [Finger] Regular Pulse Strength [Finger] Normal Respiratory Rate 20 19 Respiratory Effort / Characteristics Non-Labored Spontaneous Respiratory Depth Normal Normal Respiratory Pattern Regular Blood Pressure 104/63 Blood Pressure [Right Arm] 111/56 L Blood Pressure Mean 76 Blood Pressure Mean [Right Arm] 74 Pulse Oximetry 97 97 Oxygen Delivery Method Room Air Nasal Cannula Nasal Cannula Oxygen Flow Rate 2 2 Sepsis New/Unexplained Change in Mental Status N/A Sepsis Action Taken by Nursing No Action Required CONSTITUTIONAL/VITAL SIGNS: Reviewed / noted above. GENERAL: Non-toxic in appearance. INTEGUMENTARY: Warm, dry, and [place]. HEAD: Normocephalic. EYES: without scleral icterus or trauma. ENT/OROPHARYNX: clear and moist. LYMPHADENOPATHY/NECK: Is supple without lymphadenopathy or meningismus. RESPIRATORY: Clear to auscultation bilaterally. No increased work of breathing. CARDIOVASCULAR: Regular rate and rhythm. EXTREMITIES: Warm and well perfused. There is redness to the anterior knee along the incision and medial lateral to the incision. There is increased warmth coming from that area. There is discomfort with flexion and extension of the knee. There is some popliteal tenderness as well. No calf tenderness. No significant extremity swelling. NEUROLOGICAL: Intact without focal deficits. PSYCHIATRIC: normal affect. MUSCULOSKELETAL: Normally developed with good muscle tone. TRIAGE NURSING DOCUMENTATION REVIEWED. Course Administered Medications Vancomycin HCl 2,000 mg/ (Sodium Chloride) 540 mls @ 200 mls/hr IV NOW ONE Stop: 04/10/22 23:26 Last Admin: 04/10/22 23:02 Dose: 200 mls/hr Documented By: RHYS Discontinued Medications Sodium Chloride (Nss 1000ml) 1,000 mls @ 999 mls/hr IV .[id number] ONE Stop: 04/10/22 22:07 Last Infusion: 04/10/22 22:25 Dose: 0 mls/hr Documented By: Admin: 04/10/22 21:19 Dose: 999 mls/hr Documented By: JALIL Medical Decision Making Differential Diagnosis Cellulitis, abscess, MRSA infection, DVT, necrotizing fasciitis, dermatitis, drug eruption, allergic reaction, as well as other pathologies. Medical Records Attestation: I reviewed the patient's medical records. Home Medications Current Medication List: was personally reviewed by me Laboratory Data Attestation: I reviewed the patient's lab results. Result diagrams: 04/10/22 19:40 04/10/22 19:40 Lab Results 04/10/22 04/10/22 04/10/22 Range/Units 19:40 19:40 19:40 WBC 13.74 H (4.8-10.8) K/ul RBC 3.93 L (4.63-6.08) M/uL Hgb 11.9 L (14.0-18.0) g/dl Hct 35.7 L (40.1-51.0) % MCV 90.8 (80.0-100.0) fL MCH 30.3 (25.0-34.0) pg MCHC 33.3 (32.0-36.0) g/dL RDW Std Deviation 44.7 (36.4-46.3) fL RDW Coeff of Reba 13.6 (11.5-14.5) % Plt Count 363 (130-400) K/uL MPV 9.3 L (9.4-12.4) fL Immature Gran % (Auto) 0.4 % Neut % (Auto) 90.7 % Lymph % (Auto) 2.5 % Dawson % (Auto) 6.3 % Eos % (Auto) 0.0 % Baso % (Auto) 0.1 % Neut # (Auto) 12.44 H (1.4-6.5) K/uL Lymph # (Auto) 0.35 L (1.2-3.4) K/uL Dawson # (Auto) 0.87 H (0.24-0.82) K/uL Eos # (Auto) 0.00 (0-0.50) K/uL Baso # (Auto) 0.02 (0-0.2) K/uL Immature Gran # (Auto) 0.06 H (0.00-0.02) K/uL Polychromasia 1+ PT 11.4 (9.0-12.0) Seconds INR 1.1 (0.9-1.1) APTT 31.3 H (21.0-31.0) Seconds PTT Ratio 1.1 Sodium 138 (136-145) mmol/L Potassium 3.8 (3.5-5.1) mmol/L Chloride 106 (98-107) mmol/L Carbon Dioxide 19 L (21-32) mmol/L Anion Gap 13 H (3-11) BUN 21 (6-23) mg/dl Creatinine 0.91 (0.6-1.4) mg/dl Est Cr Clr Drug Dosing Not Reportable Est GFR ( Amer) 102.1 ml/min Est GFR (Non-Af Amer) 88.1 ml/min BUN/Creatinine Ratio 23.1 H (10-20) Glucose 122 H (70-99(Fasting)) mg/dl Lactate (0.4-2.0) mmol/L Calcium 9.2 (8.5-10.1) mg/dl Magnesium 1.5 L (1.7-2.4) mg/dl Total Bilirubin 1.1 H (0.2-1.0) mg/dl AST 14 (13-39) U/L ALT 10 (7-52) U/L Alkaline Phosphatase 104 (34-104) U/L C-Reactive Protein (0-0.5) mg/dl Total Protein 6.2 (6.0-8.3) gm/dl Albumin 4.1 (3.4-5.0) gm/dl Globulin 2.1 L (2.5-4.0) gm/dl Albumin/Globulin Ratio 2.0 (0.9-2) Procalcitonin (0-0.5) ng/ml Urine Color Urine Appearance (Clear) Urine pH (4.5-7.5) Ur Specific [place] (1.000-1.030) Urine Protein (Negative) Urine Glucose (UA) (Negative) Urine Ketones (Negative) Urine Blood (Negative) Urine Nitrite (Negative) Urine Bilirubin (Negative) Urine Urobilinogen (Negative) Ur Leukocyte Esterase (Negative) Urine WBC (Auto) (0-5) /hpf Urine RBC (Auto) (0-4) /hpf U Hyaline Cast (Auto) (0-5) /lpf U Epithel Cells (Auto) (0-5) /lpf Urine Bacteria (Auto) (Negative) SARS-CoV-2, RNA, NAAT (NEGATIVE) 04/10/22 04/10/22 04/10/22 Range/Units 19:40 19:40 20:45 WBC (4.8-10.8) K/ul RBC (4.63-6.08) M/uL Hgb (14.0-18.0) g/dl Hct (40.1-51.0) % MCV (80.0-100.0) fL MCH (25.0-34.0) pg MCHC (32.0-36.0) g/dL RDW Std Deviation (36.4-46.3) fL RDW Coeff of Reba (11.5-14.5) % Plt Count (130-400) K/uL MPV (9.4-12.4) fL Immature Gran % (Auto) % Neut % (Auto) % Lymph % (Auto) % Dawson % (Auto) % Eos % (Auto) % Baso % (Auto) % Neut # (Auto) (1.4-6.5) K/uL Lymph # (Auto) (1.2-3.4) K/uL Dawson # (Auto) (0.24-0.82) K/uL Eos # (Auto) (0-0.50) K/uL Baso # (Auto) (0-0.2) K/uL Immature Gran # (Auto) (0.00-0.02) K/uL Polychromasia PT (9.0-12.0) Seconds INR (0.9-1.1) APTT (21.0-31.0) Seconds PTT Ratio Sodium (136-145) mmol/L Potassium (3.5-5.1) mmol/L Chloride (98-107) mmol/L Carbon Dioxide (21-32) mmol/L Anion Gap (3-11) BUN (6-23) mg/dl Creatinine (0.6-1.4) mg/dl Est Cr Clr Drug Dosing Est GFR ( Amer) ml/min Est GFR (Non-Af Amer) ml/min BUN/Creatinine Ratio (10-20) Glucose (70-99(Fasting)) mg/dl Lactate 0.9 (0.4-2.0) mmol/L Calcium (8.5-10.1) mg/dl Magnesium (1.7-2.4) mg/dl Total Bilirubin (0.2-1.0) mg/dl AST (13-39) U/L ALT (7-52) U/L Alkaline Phosphatase (34-104) U/L C-Reactive Protein 3.16 H (0-0.5) mg/dl Total Protein (6.0-8.3) gm/dl Albumin (3.4-5.0) gm/dl Globulin (2.5-4.0) gm/dl Albumin/Globulin Ratio (0.9-2) Procalcitonin 0.70 H (0-0.5) ng/ml Urine Color Urine Appearance (Clear) Urine pH (4.5-7.5) Ur Specific [place] (1.000-1.030) Urine Protein (Negative) Urine Glucose (UA) (Negative) Urine Ketones (Negative) Urine Blood (Negative) Urine Nitrite (Negative) Urine Bilirubin (Negative) Urine Urobilinogen (Negative) Ur Leukocyte Esterase (Negative) Urine WBC (Auto) (0-5) /hpf Urine RBC (Auto) (0-4) /hpf U Hyaline Cast (Auto) (0-5) /lpf U Epithel Cells (Auto) (0-5) /lpf Urine Bacteria (Auto) (Negative) SARS-CoV-2, RNA, NAAT (NEGATIVE) 04/10/22 04/10/22 Range/Units 21:47 22:20 WBC (4.8-10.8) K/ul RBC (4.63-6.08) M/uL Hgb (14.0-18.0) g/dl Hct (40.1-51.0) % MCV (80.0-100.0) fL MCH (25.0-34.0) pg MCHC (32.0-36.0) g/dL RDW Std Deviation (36.4-46.3) fL RDW Coeff of Reba (11.5-14.5) % Plt Count (130-400) K/uL MPV (9.4-12.4) fL Immature Gran % (Auto) % Neut % (Auto) % Lymph % (Auto) % Dawson % (Auto) % Eos % (Auto) % Baso % (Auto) % Neut # (Auto) (1.4-6.5) K/uL Lymph # (Auto) (1.2-3.4) K/uL Dawson # (Auto) (0.24-0.82) K/uL Eos # (Auto) (0-0.50) K/uL Baso # (Auto) (0-0.2) K/uL Immature Gran # (Auto) (0.00-0.02) K/uL Polychromasia PT (9.0-12.0) Seconds INR (0.9-1.1) APTT (21.0-31.0) Seconds PTT Ratio Sodium (136-145) mmol/L Potassium (3.5-5.1) mmol/L Chloride (98-107) mmol/L Carbon Dioxide (21-32) mmol/L Anion Gap (3-11) BUN (6-23) mg/dl Creatinine (0.6-1.4) mg/dl Est Cr Clr Drug Dosing Est GFR ( Amer) ml/min Est GFR (Non-Af Amer) ml/min BUN/Creatinine Ratio (10-20) Glucose (70-99(Fasting)) mg/dl Lactate (0.4-2.0) mmol/L Calcium (8.5-10.1) mg/dl Magnesium (1.7-2.4) mg/dl Total Bilirubin (0.2-1.0) mg/dl AST (13-39) U/L ALT (7-52) U/L Alkaline Phosphatase (34-104) U/L C-Reactive Protein (0-0.5) mg/dl Total Protein (6.0-8.3) gm/dl Albumin (3.4-5.0) gm/dl Globulin (2.5-4.0) gm/dl Albumin/Globulin Ratio (0.9-2) Procalcitonin (0-0.5) ng/ml Urine Color Dark Yellow Urine Appearance Clear (Clear) Urine pH 6.0 (4.5-7.5) Ur Specific [place] 1.022 (1.000-1.030) Urine Protein Negative (Negative) Urine Glucose (UA) Negative (Negative) Urine Ketones 1+ H (Negative) Urine Blood Negative (Negative) Urine Nitrite Negative (Negative) Urine Bilirubin Negative (Negative) Urine Urobilinogen Negative (Negative) Ur Leukocyte Esterase 1+ H (Negative) Urine WBC (Auto) 10-30 H (0-5) /hpf Urine RBC (Auto) 5-10 H (0-4) /hpf U Hyaline Cast (Auto) 1-5 (0-5) /lpf U Epithel Cells (Auto) 10-20 H (0-5) /lpf Urine Bacteria (Auto) Negative (Negative) SARS-CoV-2, RNA, NAAT NEGATIVE (NEGATIVE) Imaging Data Radiologist's Impression: Chest X-Ray 04/10/22 19:29 SINGLE VIEW CHEST CLINICAL HISTORY: Sepsis. FINDINGS: An AP, portable, upright chest radiograph is compared to study dated 02/12/2022. An electronic device projects over the left lower chest. The cardiomediastinal silhouette is unremarkable. Emphysema and chronic interstitial thickening is similar to previous. Scarring/atelectasis is noted at the lung bases. No airspace consolidation or large pleural effusion is identified. No pneumothorax is seen. The skeletal structures are osteopenic. The bony thorax is grossly intact. IMPRESSION: Emphysematous change with no active disease in the chest. ACT 112: Negative or not required by law. Electronically signed by: Morteza Hickey M.D. 04/10/2022 8:11 PM ECG Data Attestation: I personally reviewed and interpreted this ECG as follows: Additional Comments: Twelve-lead EKG: Per my interpretation shows a sinus tach at a rate of 116 with a PVC. No ST elevation. Normal QTC. Patient reports a history of PVCs and sees cardiology for this. MDM Narrative 67-year-old male presents to the ED with a chief complaint of concerns of right knee infection. Knee replacement [address] Varela. His knee is erythematous anteriorly with increased warmth radiating from the knee. He had a fever at home of 100.7. No fever here. He is tachycardic with a heart rate around 135. He has some popliteal tenderness as well. White blood count is 13.7. Chest x-ray was negative for acute disease. Chemistry panel was unremarkable. EKG shows a sinus tach rate of 116. CRP is elevated at 3.1. Lactic acid is negative. "Procalcitonin is mildly elevated at 0.7. Ultrasound did not show DVT. There is possibly a Arteaga's cyst or fluid collection behind the knee. The patient symptoms are concerning for cellulitis and possibly infected knee arthroplasty. The patient was treated with IV vancomycin here. The patient was given some IV fluids. The patient will be seen by the hospitalist for further evaluation and care. Impression & Plan Cellulitis of knee, right Discharge Plan Visit Data Chief Complaint: Knee Injury/Pain Stated Complaint: POST OP KNEE PAIN, SWELLING AND FEELS WARM, FEVER ED Provider: Patrice Mujica Discharge Problem: Cellulitis of knee, right Patient Disposition: Being Evaluated by Hospitalist Forms Stand Alone Forms: [facility] Prescriptions Prescriptions: No Action (DME) miscellaneous medical supply Package See Rx Instructions .ROUTE .MEDSUPPLY Qty: 1 0RF Rx Instructions: CPAP Supplies atorvastatin 40 mg tablet 40 mg PO HS Qty: 90 3RF acetaminophen [Tylenol Extra Strength] 500 mg tablet 1,000 mg PO BID vitamin B complex Capsule 1 cap PO QAM ascorbic acid (vitamin C) [Vitamin C] 500 mg Tablet 500 mg PO QAM cholecalciferol (vitamin D3) [Vitamin D3] 125 mcg (5,000 unit) Tablet 125 mcg PO QAM celecoxib [Celebrex] 200 mg capsule 200 mg PO QAM venlafaxine [Effexor XR] 150 mg capsule,extended release 24hr 150 mg PO QAM clopidogrel [Plavix] 75 mg tablet 75 mg PO QAM tamsulosin [Flomax] 0.4 mg capsule 0.4 mg PO HS pantoprazole [Protonix] 40 mg tablet,delayed release (DR/EC) 40 mg PO QAM bupropion HCl [Wellbutrin XL] 150 mg tablet extended release 24 hr 150 mg PO QAM oxycodone-acetaminophen 5-325 mg tablet 1 tab PO Q6H PRN (Reason: pain) Qty: 30 0RF aspirin [Aspir-Low] 81 mg Tablet,Delayed Release (Dr/Ec) 81 mg PO DAILY diclofenac sodium [Voltaren] 1 % Gel 2 g TOPICAL QID PRN (Reason: Pain) Referrals Referrals: Sagar Louise MD [Primary Care Provider] -
[2022-04-10] MEDS ORDERED: SODIUM CHLORIDE 0.9% 1000ML 1,000 ML IV ONE (21:07)
[2022-04-10 22:23] LABS: Appearance Urine Clear (Clear); Bacteria Urine Automated Negative (Negative); Bilirubin Urine Negative (Negative); Blood Urine Negative (Negative); Color Urine Dark Yellow; Glucose Urine UA Negative (Negative); Ketones Urine 1+ (Negative); Leukocyte Esterase Urine 1+ (Negative); Nitrite Urine Negative (Negative); Protein Urine Negative (Negative); Specific Gravity Urine 1.022 (1.000-1.030); Urobilinogen Urine Negative (Negative)
--- NOTE | 2022-04-10 23:12 | History & Physical Report ---
Date of Service April 10, 2022 Assessment & Plan (1) Cellulitis of knee, right: Plan 67 y/o M Hx HARRIET, depression, HLD, cryptogenic CVA, osteoarthritis. The pt underwent a R TKA 03/21. His iban were removed one week prior. He was on track with rehab and did not suffer any immediate post-op complications. Over the past 1-2 days, he has developed pain, redness and swelling of the R knee surrounding the wound site. A CXR demonstrated tissue swelling and subcutaneous emphysema consistent with post-op changes. No fluid collection or abscess is reported. Labs were notable for elevated inflammatory markers and a mag of 1.5. He had a low-grade fever on arrival to the ER. 1) Infection of R knee - extent is not clear from current imaging - ortho to see and placed on Doxy and Vanc in the interim. NPO > midnight pending ortho eval. Pain control and IVF provided. 2) Hypomagnesemia - 2g stat ordered 3) HLD - cont statin 4) HARRIET - CPAP provided 5) Hx CVA - he takes ASA and Plavix which are held and should be restarted if no intervention is imminent. 6) Depression - cont Wellbutrin, fluoxetine Full code - 1 dose Heparin provided Total time for this admit including review of labs, meds, imaging, records - discussion with pt and ER attending - 40 min History of Present Illness Chief Complaint: Pain in R knee - post-op Primary Care Provider: Sagar Louise MD 67 y/o M Hx HARRIET, depression, HLD, cryptogenic CVA, osteoarthritis. The pt underwent a R TKA 03/21. His iban were removed one week prior. He was on track with rehab and did not suffer any immediate post-op complications. Over the past 1-2 days, he has developed pain, redness and swelling of the R knee surrounding the wound site. A CXR demonstrated tissue swelling and subcutaneous emphysema consistent with post-op changes. No fluid collection or abscess is reported. labs were notable for elevated inflammatory markers and a mag of 1.5. He had a low-grade fever on arrival to the ER. 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 Family: Father CVA during defibrillator placement Mother alive/well age 91 Allergies Allergy/AdvReac Type Severity Reaction Status Date / Time escitalopram [From Lexapro] AdvReac Mild Drowsy Verified 04/10/22 22:59 paroxetine [From Paxil] AdvReac Mild Drowsy Verified 04/10/22 22:59 Home Medications Medication Instructions Recorded Confirmed Type ascorbic acid (vitamin C) 500 mg 500 mg PO QAM 03/23/20 04/10/22 History tablet (Vitamin C) vitamin B complex 1 cap PO QAM 04/09/20 04/10/22 History miscellaneous medical supply #1 ea 11/02/20 02/04/22 Rx acetaminophen 500 mg tablet 1,000 mg PO BID Pain 10/14/21 04/10/22 History (Tylenol Extra Strength) atorvastatin 40 mg tablet 40 mg PO HS #90 tabs 01/28/22 04/10/22 Rx celecoxib 200 mg capsule (Celebrex) 200 mg PO QAM 02/04/22 04/10/22 History cholecalciferol (vitamin D3) 125 125 mcg PO QAM 02/04/22 04/10/22 History mcg (5,000 unit) tablet (Vitamin D3) clopidogrel 75 mg tablet (Plavix) 75 mg PO QAM 02/04/22 04/10/22 History pantoprazole 40 mg tablet,delayed 40 mg PO QAM 02/04/22 04/10/22 History release (Protonix) tamsulosin 0.4 mg capsule (Flomax) 0.4 mg PO HS 02/04/22 04/10/22 History venlafaxine 150 mg 150 mg PO QAM 02/04/22 04/10/22 History capsule,extended release 24 hr (Effexor XR) bupropion HCl 150 mg 24 hr tablet, 150 mg PO QAM 03/21/22 04/10/22 History extended release (Wellbutrin XL) oxycodone-acetaminophen 5 mg-325 1 tab PO Q6H PRN pain #30 tabs 03/21/22 04/10/22 Rx mg tablet aspirin 81 mg tablet,delayed 81 mg PO DAILY 04/10/22 04/10/22 History release diclofenac sodium 1 % topical gel 2 g topical QID PRN Pain 04/10/22 04/10/22 History Past Med/Surg History Medical History Anxiety Arterial embolism RLE 03/2020 after CVA, unknown etiology CVA (cerebral vascular accident) 03/07/20- R hemispheric, received TPA, flown [facility], transferred to [facility] for rehab - Follows Dr. 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 2014 - Tubular Adenoma. History of cystoscopy cystoscopy, stent placement: 03/24/20: MAC sedation at [facility] History of loop recorder insert by Dr. Schmitz - 07/2020 - 3 months post CVA - no current issues - follows Dr. Schmitz yearly History of repair of rotator cuff RT History of surgery on right wrist proximinal row History of tooth extraction S/P foot surgery right-05/06/2019 left-09/02/2021 Family History Son Type 1 diabetes Mother Breast cancer Dyslipidemia Father Myocardial infarction Stroke Ischemic dilated cardiomyopathy Brother Hypertension Denies family history of Ovarian cancer Prostate cancer Colorectal cancer Social History Smoking Status: Former smoker Tobacco Type: Cigarettes Years Smoked: 2; Cigarettes Per Day: 1/2 pk /day; Second Hand Exposure: No; Hx Alcohol Use: Yes Alcohol type: beer Hx Substance Use: No Preferred Language: Slovenian Communication Ability: Effective Visual Impairment: No Limitations Hearing Ability: Normal Cloth Bolt Bander Required: No Beliefs That Will Affect Care: None marital status: Current Living Situation: Spouse Current Living Situation Comment: [employer] current occupational status: retired Feels Safe at Home: Yes Diet Comment: regular caffeine: Yes (coffee 1 per day soda 1 per day.) during the past year weight has: remained stable Dental Care, Regularly: Yes Physical Activity Frequency: Other Seatbelt Use: always Sunscreen Use: No Assistive Devices: Cane, Walker and Wheelchair Review of Systems Review of Systems: Gen: Denies fevers, night sweats, rigors, fatigue, malaise, weight loss/gain ENT: Denies congestion, throat pain, hearing loss Eyes: Denies acute visual changes CV: Denies CP, palpitations Pulmonary: Denies SOB, cough, wheezing GI: Denies N/V, diarrhea, constipation Neuro: Denies acute or unilateral weakness, acute gait impairment, headache or acute visual changes Musculoskeletal: Pain/inflammation of R knee Endocrine: Denies polydipsia, polyuria Skin: Denies acute rashes or ulcers Physical Exam Physical Exam: General: AAO x 3, no distress ENT: No erythema or exudates, no thrush Eyes: EN, EOMI Head and neck: Normocephalic, atraumatic, No JVD, neck is supple. Chest/heart: Nontender, S1,2, RRR, no murmurs, no gallops Lungs: CTAB, no wheezing or crackles Abdomen: Nontender, nondistended, BS+ Neuro: AAO x 3, speech is clear, no unilateral weakness or loss of sensation, coordination intact Musculoskeletal: There is warmth and erythema extending from the surgical wound site, RO is limited. Skin: No acute rashes or ulcers Extremities: No clubbing, cyanosis, edema Results & Data Results & Data ([facility]) Vital Signs (Past 12 Hours) Vital Signs Temp Pulse Pulse Resp BP BP Pulse Ox 04/10/22 23:02 04/10/22 23:02 99.5 F 112 H 19 111/56 L 97 04/10/22 19:24 98.8 F 135 H 20 104/63 97 O2 Del Method O2 Flow Rate 04/10/22 23:02 Nasal Cannula 2 04/10/22 23:02 Nasal Cannula 2 04/10/22 19:24 Room Air Code Status & VTE Plan VTE Prophylaxis Plan VTE Prophylaxis will be ordered: Yes PG Care Time/CCT Total # of Minutes Spent Total Time Spent with Patient: Total time spent is greater than 50% in coordination of care (as documented) at patient's floor/unit and/or counseling patient: Coding Level of Care Code 51064 Initial Inpt Care Lvl 2 Diagnoses Cellulitis of knee, right L03.115
[2022-04-10] MEDS ORDERED: HEPARIN SOD 5,000 UNIT/0.5 ML VIAL SQ STA (23:27)
[2022-04-11] MEDS ORDERED: ZOLPIDEM TARTRATE 5 MG TAB PO PRN (00:26)
[2022-04-11] MEDS ORDERED: VANCOMYCIN HCL 1,000 MG in SODIUM CHLORIDE 0.9% 250 ML IV SCH (00:26)
[2022-04-11] MEDS ORDERED: ONDANSETRON INJ 2 MG/ML 2 ML VIAL IV PRN (00:26)
[2022-04-11] MEDS ORDERED: VANCOMYCIN CONSULT ACTIVE PRN (00:26)
[2022-04-11] MEDS ORDERED: HYDROmorphone INJ 0.5 MG/0.5 ML SYR IV PRN (00:26)
[2022-04-11] MEDS ORDERED: POLYETHYLENE (MIRALAX) 17 GM PACK PO PRN (00:26)
[2022-04-11] MEDS ORDERED: INFLUENZA VACCINE HIGH DOSE PF 65+ 0.7 ML SYR IM ONE (00:36)
[2022-04-11] MEDS: oxyCODONE/ACETAMINOPHEN 5mg/325mg TAB PO PRN ×3 (00:59→17:12)
[2022-04-11] MEDS: D5W AND LACTATED RINGERS 1,000 ML IV SCH ×2 (01:07→13:09)
[2022-04-11] MEDS: MAGNESIUM SULFATE / D5W 1 GM/100 ML BAG IV SCH ×2 (01:11→03:10)
[2022-04-11] MEDS: DOXYCYCLINE HYCLATE 100 MG in DEXTROSE 5% 100 ML IV SCH ×2 (02:17→13:10)
[2022-04-11] MEDS: VANCOMYCIN HCL 1,000 MG in SODIUM CHLORIDE 0.9% 250 ML IV SCH ×2 (05:15→17:28)
--- NOTE | 2022-04-11 07:10 | Ultrasound Report ---
RIGHT LOWER EXTREMITY VENOUS DOPPLER HISTORY: Right leg pain, r/o dvt COMPARISON STUDY: None. FINDINGS: Nonocclusive linear echogenic stranding within the mid right superficial femoral vein consi stent with chronic thrombus. The remaining right lower extremity deep venous structures are patent. C omplex popliteal cyst containing internal echoes and calcifications measuring 4.9 x 2.7 x 2.4 cm. IMPRESSION: 1. No acute DVT within the right lower extremity. 2. A small amount of chronic nonocclusive thrombus within the mid right superficial femoral vein. 3. Complex popliteal cyst. ACT 112: Negative or not required by law. Electronically signed by: Moses Ham M.D. 04/11/2022 7:08 AM
[2022-04-11 08:29] LABS: Creatinine Clr Calc Pharmacy 98.4 ml/min; Est GFR (Non-African American) 90.6 ml/min
[2022-04-11] MEDS: buPROPion XL 150 MG TABCR PO SCH (08:38)
[2022-04-11] MEDS: VENLAFAXINE HCL XR 150 MG CAPXR PO SCH (08:38)
[2022-04-11] MEDS: ACETAMINOPHEN 325 MG TAB PO PRN ×2 (08:38→22:19)
[2022-04-11] MEDS: PANTOprazole 40 MG TAB PO SCH (08:38)
--- NOTE | 2022-04-11 08:38 | Hospitalist Progress Note ---
Date of Service April 11, 2022 Assessment & Plan (1) Cellulitis of knee, right: Plan: 67 y/o M Hx HARRIET, depression, HLD, cryptogenic CVA, osteoarthritis. The pt underwent a R TKA 03/21. His iban were removed one week prior. He was on track with rehab and did not suffer any immediate post-op complications. Had been on ASA/Plavix for DVT prophylaxis post-operatively Over the past 1-2 days, he has developed pain, redness and swelling of the R knee surrounding the wound site. Labs were notable for elevated inflammatory markers and a mag of 1.5. He had a low-grade fever on arrival to the ER. Was only on ASA/Plavix for DVT prevention, not ASA BID, possible DVT/PE suspected 1) Infection of R knee - extent is not clear from current imaging but does appear to likely need washout * WBC 13.7k, CRP 3.16, procal 0.70 * Temp 37.8C this morning * Blood cultures pending * Continue Doxy/Vancomycin IV until seen by ortho --> double MRSA coverage, hx enteroccocus. * --> Discussed with pharmacy and switched doxy to ceftriaxone, continue V ancomycin Venous Doppler with NO acute DVT within RLE. Small amount of chronic nonocclusive thrombus within med right superficial femoral vein. Complex popliteal cyst. * --> ?chronic vs acute though given no prior DVT * EKG checked --> Sinus tachy. Does have reported lightheadedness, no hypotension, denied pleuritic chest pain * --> Will check CTA to r/o PE as well, no AC currently (did have hypercoag workup in 2020, after Cryptogenic CVA in Mar 2020 s/p TPN and flown to [facility], residual left sided weakness) * Diet ordered by orthopedics * --> diet ordered as no surgery for today planned, possible aspiration at bedside, possible washout tomorrow pending evaluation this afternoon * IVF/pain control/electrolyte replacement Likely will need longer term IV abx/ID consult/continued inpatient stay. Did alert CM of such to see about coverage 2) Hypomagnesemia - 2g stat ordered repeat level [place]aka 6) Depression cont Wellbutrin, fluoxetine DVT prophylaxis Full code - DVT proph - 1 dose Heparin provided, holding further while awaiting ortho eval resume ASA/plavix when able (2) Sinus tachycardia: Plan: on admit, HR 135 mag was 1.5 --> 2gm IV ordered. Repeat mag 1.9 will order additional 1gm IV to keep closer to 2 to prevent any afib (see below) Repeat EKG today still with sinus tachycardia despite replacement, could be aspect of pain given recent admit/surgery and lightheadedness along with venous Doppler without acute but chronic nonocclusive, worried about possible PEs order placed for CT PE -- monitor (3) Urinary retention: Plan: Urinary retention Bladder scan >1100cc this morning, prior issues but not this bad St cath/urine cx obtained Repeat still retention, meeks order placed. Monitor cx Does have hx kidney stones, congenital urinary issues, follows with urology -- consider consult while inpatient Monitor cx/urine output (4) CVA (cerebral vascular accident): Plan: Reported baseline LUE/LLE weakness following CVA in 2019 - 03/25/20 had RIGHT hemispheric CVA, received TPA/flown to [facility] and tx to [facility] following for rehab. Has loop recorder in place He had a stroke early in march followed by an arterial embolism, source unknown. no issues since being on asa/plavix, 30 day without afib, did have brief episodes of atrial tachycardia STRONG family hx afib, denied any palpitations to me, but as above, checking CTA to r/o underlying PE * Remains on ASA/Plavix -- held while NPO --> to continue to hold per orthopedics * Considering monitoring on tele bed post-op if requiring surgery ask to check pacemaker for afib (5) Obstructive sleep apnea: Plan: continue CPAP (6) Hyperlipidemia: Plan: continue statin (7) Hypomagnesemia: Plan: 1.5 on admit, IV replacement repeat 1.9, additional 1gm ordered to keep closer to 2 Plan continued inpatient stay awaiting orthopedics evaluation/aspiration possible NPO at midnight for washout Anticoagulation/DVT proph on hold currently until definitive plan, did get dose Heparin x1 while awaiting orthopedics Admission and Anticipated Discharge Date Admission Date: April 10, 2022 Subjective Eval this afternoon Pain controlled with ordered medications Did have some drainage initially from distal aspect of incision at home, likely infected Dr Varela to be back this afternoon for possible aspiration of fluid of knee, continuing to hold aspirin/plavix. Depending on aspiration/culture could conside r ID consultation if issues with deeper infection given recent knee replacement. hx cva and residual LUE/LLE weakness. Ambulates with cane at home. Eating regular diet this morning Had issues with urinary retention this morning, st cath. Has not urinated since. Will repeat bladder scan, meeks if needed Issues in the past but never this bad. No vomiting. Has some lightheadedness but no CP/SOb/palpitations/headache. THinks from sitting in bed all day. Will check EKG. Review of Systems Review of Systems: All systems reviewed & are unremarkable except as noted in HPI & below Physical Exam Physical Exam: General: WD/WN male sitting up in bed eating lunch, NAD, minimal discomfort noted presently at rest HEENT: head normocephalic, atraumatic, mm slightly dry, trachea midline Resp: CTAB, no w/c, on room air CV: tachycardic, regular, no m/r, no calf tenderness, pulses palpable RLE with edema around the knee, posterior likely popliteal cyst GI: +BS, nontender : no meeks (st cath this morning, not voided since) MSK/Neuro: baseline LUE/LLE weakness from prior CVA (no worse per patient), follows commands, no facial droop, alert/oriented x 3 RLE knee with increased edema/warmth, tender to palpation, scabbing to prior incision +effusion, fluctuant about the knee no lymphangitic streaking Skin: otherwise, warm, dry Results & Data Results & Data ([facility]) Vital Signs (Past 12 Hours) Vital Signs Temp Pulse Resp BP Pulse Ox O2 Del Method O2 Flow Rate 04/11/22 07:12 37.8 C H 111 H 18 147/84 H 95 Room Air 04/11/22 00:32 37.1 C 103 H 18 114/71 97 Room Air 04/11/22 00:28 37.1 C 103 H 18 114/71 97 Room Air 04/11/22 00:01 Nasal Cannula 2 04/10/22 23:02 Nasal Cannula 2 04/10/22 23:02 37.5 C 112 H 19 111/56 L 97 Nasal Cannula 2 Laboratory Results Chest X-Ray 04/10/22 19:29 SINGLE VIEW CHEST CLINICAL HISTORY: Sepsis. FINDINGS: An AP, portable, upright chest radiograph is compared to study dated 02/12/2022. An electronic device projects over the left lower chest. The cardiomediastinal silhouette is unremarkable. Emphysema and chronic interstitial thickening is similar to previous. Scarring/atelectasis is noted at the lung bases. No airspace consolidation or large pleural effusion is identified. No pneumothorax is seen. The skeletal structures are osteopenic. The bony thorax is grossly intact. IMPRESSION: Emphysematous change with no active disease in the chest. ACT 112: Negative or not required by law. Electronically signed by: Morteza Hickey M.D. 04/10/2022 8:11 PM Venous Doppler Study 04/10/22 20:48 RIGHT LOWER EXTREMITY VENOUS DOPPLER HISTORY: Right leg pain, r/o dvt COMPARISON STUDY: None. FINDINGS: Nonocclusive linear echogenic stranding within the mid right superficial femoral vein consistent with chronic thrombus. The remaining right lower extremity deep venous structures are patent. Complex popliteal cyst containing internal echoes and calcifications measuring 4.9 x 2.7 x 2.4 cm. IMPRESSION: 1. No acute DVT within the right lower extremity. 2. A small amount of chronic nonocclusive thrombus within the mid right superficial femoral vein. 3. Complex popliteal cyst. ACT 112: Negative or not required by law. Electronically signed by: Moses Ham M.D. 04/11/2022 7:08 AM PG Care Time/CCT Total # of Minutes Spent Total Time Spent with Patient: Total time spent is greater than 50% in coordination of care (as documented) at patient's floor/unit and/or counseling patient: Coding Level of Care Code 18486 Subseq Hosp Care Lvl 3 Diagnoses Cellulitis of knee, right L03.115 Sinus tachycardia R00.0 Urinary retention R33.9 CVA (cerebral vascular accident) I63.9 Obstructive sleep apnea G47.33 Hyperlipidemia E78.5 Hypomagnesemia E83.42
[2022-04-11 09:05] LABS: Hematocrit (blood only) 34.1 % (40.1-51.0); Hemoglobin 11.4 g/dl (14.0-18.0); Mean Corpuscular Hemoglobin 30.5 pg (25.0-34.0); Mean Corpuscular Hgb Conc 33.4 g/dL (32.0-36.0); Mean Corpuscular Volume 91.2 fL (80.0-100.0); Mean Platelet Volume 8.5 fL (9.4-12.4); Platelet Count 312 K/uL (130-400); RDW Coefficient of Variation 13.9 % (11.5-14.5); RDW Standard Deviation 46.2 fL (36.4-46.3); Red Blood Count 3.74 M/uL (4.63-6.08)
[2022-04-11 09:30] LABS: BUN Creatinine Ratio 18.3 (10-20); Calcium 9.1 mg/dl (8.5-10.1); Creatinine Clr Calc Pharmacy 92.1 ml/min; Est GFR (African American) 99.5 ml/min; Est GFR (Non-African American) 85.8 ml/min; Magnesium 1.9 mg/dl (1.7-2.4); Potassium 3.6 mmol/L (3.5-5.1)
[2022-04-11 09:45] LABS: Basophils # (auto) 0.03 K/uL (0-0.2); Basophils % (auto) 0.2 %; Echinocytes 1+; Eosinophils # (auto) 0.01 K/uL (0-0.50); Eosinophils % (auto) 0.1 %; Immature Granulocytes # (auto) 0.07 K/uL (0.00-0.02); Immature Granulocytes % (auto) 0.5 %; Lymphocytes # (auto) 0.27 K/uL (1.2-3.4); Lymphocytes % (auto) 2.1 %; Monocytes % (auto) 3.8 %; Neutrophils # (auto) 12.12 K/uL (1.4-6.5); Neutrophils % (auto) 93.3 %
--- NOTE | 2022-04-11 10:21 | Pharmacy Report ---
Pharmacy Vanc AUC Short Note - Date of Service April 11, 2022 - Assessment & Plan Assessment 67 year old M started on vancomycin for R knee infection. Hx of enterococcus faecalis on previous cultures. Blood and urine cultures pending. Hx of R TKA on 03/2022. NPO until seen by orthopedics. Plan Vancomycin * AUC/MARC is the preferred PK/PD target for vancomycin * AUC guided dosing is effective and associated with decreased risk of nephrotoxicity compared to traditional trough targets * Received a vancomycin loading dose of 2000 mg x 1 last evening (~22 mg/kg/dose) * Will start vancomycin 1000 mg iv q 12 hrs - this dosing is estimated to achieve a trough level of 16 mcg/mL is predicted to achieve target AUC/MARC of 400-600 mg/L.hr and may be associated with a 12 % risk of nephrotoxicity * Will plan to vancomycin level if plan is to continue with abx >48 hrs Pharmacy will continue to follow and will adjust dose/frequency as necessary. Thank you.
[2022-04-11 10:41] LABS: Appearance Urine Clear (Clear); Bacteria Urine Automated Negative (Negative); Bilirubin Urine Negative (Negative); Blood Urine Negative (Negative); Cast Urine Automated 0 /lpf (0-5); Color Urine Dark Yellow; Glucose Urine UA Negative (Negative); Ketones Urine Trace (Negative); Leukocyte Esterase Urine Trace (Negative); Nitrite Urine Negative (Negative); Protein Urine Negative (Negative); RBC Urine Automated 0-4 /hpf (0-4); Urobilinogen Urine Negative (Negative); pH Urine 6.5 (4.5-7.5)
--- NOTE | 2022-04-11 13:40 | Electrocardiogram Report ---
Test Reason : Blood Pressure : / mmHG Vent. Rate : 116 BPM Atrial Rate : 116 BPM P-R Int : 146 ms QRS Dur : 078 ms QT Int : 324 ms P-R-T Axes : 044 009 076 degrees QTc Int : 450 ms Sinus tachycardia with occasional Premature ventricular complexes Nonspecific ST abnormality Otherwise normal ECG When compared with ECG of 12-FEB-2022 13:29, Premature ventricular complexes are now Present Confirmed by Cleve Argueta ([id number]) on 04/11/2022 1:39:50 PM Referred By: REFERRED SELF Confirmed By:Sanjay Argueta
--- NOTE | 2022-04-11 13:59 | Electrocardiogram Report ---
Test Reason : Blood Pressure : / mmHG Vent. Rate : 108 BPM Atrial Rate : 108 BPM P-R Int : 154 ms QRS Dur : 086 ms QT Int : 364 ms P-R-T Axes : 054 005 071 degrees QTc Int : 487 ms Sinus tachycardia Otherwise normal ECG When compared with ECG of 10-APR-2022 19:35, (unconfirmed) Premature ventricular complexes are no longer Present Confirmed by Cleve Argueta ([id number]) on 04/11/2022 1:58:52 PM Referred By: REFERRED SELF Confirmed By:Sanjay Argueta
[2022-04-11] MEDS: cefTRIAXone SODIUM 2,000 MG in DEXTROSE 5% 50 ML IV SCH (14:20)
[2022-04-11] MEDS ORDERED: MAGNESIUM SULFATE / D5W 1 GM/100 ML BAG IV ONE (14:56)
[2022-04-11] MEDS ORDERED: OPTIRAY 300 500mL IV ONE (16:47)
--- NOTE | 2022-04-11 17:03 | CT Scan Report ---
CT ANGIOGRAPHY OF THE CHEST, PULMONARY EMBOLUS PROTOCOL CLINICAL HISTORY: Shortness of breath. Evaluate for pulmonary embolus. COMPARISON STUDY: Chest radiograph April 10, 2022. TECHNIQUE: Following IV administration of 115 mL of Optiray, helical axial images of the chest were o btained utilizing the pulmonary embolus protocol. Maximal intensity projections and sagittal and cor onal reformats were viewed on an independent 3D workstation. IV contrast was administered without co mplication. Automated exposure control was utilized for the study. A dose lowering technique was ut ilized adhering to the principles of ALARA. CT DOSE: 573.19 mGy.cm FINDINGS: No pulmonary emboli are identified although this exam is mildly compromised given suboptim al opacification. Size of the heart is normal. There is no thoracic aortic dissection. No enlarged th oracic lymph nodes are present. No pneumothorax or pleural effusion is present. The central airways a re patent. Subpleural opacities favor atelectasis. There is no consolidation to suggest pneumonia. No acute fracture or suspicious lesion within the visualized bony thorax is noted. Old sternal fracture is present. IMPRESSION: 1. No pulmonary emboli identified although exam mildly compromised given suboptimal penetration. 2. No consolidation to suggest pneumonia. Subpleural opacities consistent with atelectasis. 3. No acute intrathoracic findings. ACT 112: Negative or not required by law. Electronically signed by: Dustin Echevarria M.D. 04/11/2022 5:01 PM
--- NOTE | 2022-04-11 17:58 | Orthopedic Consultation ---
Date of Service April 11, 2022 Assessment & Plan (1) Infection of total knee replacement: Unfortunately is really struggling with the right knee. I aspirated about 10 cc of pus from the knee joint. It is grossly infected. He is currently off his aspirin and his Plavix. I will keep him n.p.o. past midnight tonight. We will take him to the operating room first thing in the morning for an irrigation debridement and probably exchange of the right knee. He understands the risk benefits alternatives procedure elected to proceed. Questions were answered at bedside. Time was spent describing procedure and post expectations. History of Present Illness Reason for Consultation: Right knee periprosthetic joint infection. Requesting Physician: . Attending Physician: Martin Moreno MD Gary is a pleasant 67-year-old male who I did a right knee replacement on March 21, 2022. He initially did well postoperatively. Over the last week he has had increasing pain and swelling of his right knee. He came to the emergency room. Ultrasound was negative on his right leg. He was admitted to the hospitalist service. Orthopedics was consulted to evaluate and treat possible periprosthetic joint infection.. Allergies Allergy/AdvReac Type Severity Reaction Status Date / Time escitalopram [From Lexapro] AdvReac Mild Drowsy Verified 04/10/22 22:59 paroxetine [From Paxil] AdvReac Mild Drowsy Verified 04/10/22 22:59 Home Medications Medication Instructions Recorded Confirmed Type ascorbic acid (vitamin C) 500 mg 500 mg PO QAM 03/23/20 04/10/22 History tablet (Vitamin C) vitamin B complex 1 cap PO QAM 04/09/20 04/10/22 History miscellaneous medical supply #1 ea 11/02/20 02/04/22 Rx acetaminophen 500 mg tablet 1,000 mg PO BID Pain 10/14/21 04/10/22 History (Tylenol Extra Strength) atorvastatin 40 mg tablet 40 mg PO HS #90 tabs 01/28/22 04/10/22 Rx celecoxib 200 mg capsule (Celebrex) 200 mg PO QAM 02/04/22 04/10/22 History cholecalciferol (vitamin D3) 125 125 mcg PO QAM 02/04/22 04/10/22 History mcg (5,000 unit) tablet (Vitamin D3) clopidogrel 75 mg tablet (Plavix) 75 mg PO QAM 02/04/22 04/10/22 History pantoprazole 40 mg tablet,delayed 40 mg PO QAM 02/04/22 04/10/22 History release (Protonix) tamsulosin 0.4 mg capsule (Flomax) 0.4 mg PO HS 02/04/22 04/10/22 History venlafaxine 150 mg 150 mg PO QAM 02/04/22 04/10/22 History capsule,extended release 24 hr (Effexor XR) bupropion HCl 150 mg 24 hr tablet, 150 mg PO QAM 03/21/22 04/10/22 History extended release (Wellbutrin XL) oxycodone-acetaminophen 5 mg-325 1 tab PO Q6H PRN pain #30 tabs 03/21/22 04/10/22 Rx mg tablet aspirin 81 mg tablet,delayed 81 mg PO DAILY 04/10/22 04/10/22 History release diclofenac sodium 1 % topical gel 2 g topical QID PRN Pain 04/10/22 04/10/22 History Past Med/Surg History Medical History Anxiety 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 2014 - Tubular Adenoma. History of cystoscopy cystoscopy, stent placement: 03/24/20: MAC sedation at [facility] History of loop recorder insert by Dr. Schmitz - 07/2020 - 3 months post CVA - no current issues - follows Dr. Schmitz yearly History of repair of rotator cuff RT History of surgery on right wrist proximinal row History of tooth extraction S/P foot surgery right-05/06/2019 left-09/02/2021 Family History Son Type 1 diabetes Mother Breast cancer Dyslipidemia Father Myocardial infarction Stroke Ischemic dilated cardiomyopathy Brother Hypertension Denies family history of Ovarian cancer Prostate cancer Colorectal cancer Social History Smoking Status: Former smoker Tobacco Type: Cigarettes Years Smoked: 2; Cigarettes Per Day: 1/2 pack/day; Second Hand Exposure: No; Hx Alcohol Use: Yes Alcohol type: beer Hx Substance Use: No Preferred Language: Greek Communication Ability: Effective Visual Impairment: No Limitations Hearing Ability: Normal Blender Operator Required: No Beliefs That Will Affect Care: None marital status: Current Living Situation: Spouse Current Living Situation Comment: [employer] current occupational status: retired How many Children do You have: 1 Feels Safe at Home: Yes Diet Comment: regular caffeine: Yes (coffee 1 per day soda 1 per day.) during the past year weight has: remained stable Dental Care, Regularly: Yes Physical Activity Frequency: Other Seatbelt Use: always Sunscreen Use: No Assistive Devices: Cane and Walker Review of Systems All systems reviewed & are unremarkable except as noted in HPI & below. Physical Exam On physical examination of the right knee, there is a large effusion. There are some redness around the incision. The incision is mostly well-healed. He has pain with range of motion of his right knee.. Constitutional WD/WN, vitals as above Eyes PERRL, conjunctivae normal, anicteric sclerae ENMT external ear and nose normal, oropharynx normal Neck trachea midline, no thyromegaly Respiratory normal respiratory effort, lungs clear to auscultation Cardiovascular RRR, no murmur, no edema Gastrointestinal (Abdomen) normal bowel sounds, soft, nontender, no hepatosplenomegaly Skin no rashes, warm and dry Psychiatric A+Ox3, euthymic affect Results & Data Results & Data Laboratory Results . Diagnostic Findings . PG Care Time/CCT Total # of Minutes Spent Total Time Spent with Patient: Total time spent is greater than 50% in coordination of care (as documented) at patient's floor/unit and/or counseling patient: Coding Level of Care Code 51841 Inpt Consult Level 4 (57 - DECISION FOR SURGERY) Diagnoses Infection of total knee replacement T84.59XA; Z96.659
[2022-04-11] MEDS ORDERED: HEPARIN SOD 5,000 UNIT/0.5 ML VIAL SQ STA (18:08)
[2022-04-11] MEDS: NSS + 20MEQ KCL 20 MEQ/1,000 ML BAG IV SCH (18:43)
[2022-04-11] MEDS: ATORVASTATIN 40 MG TAB PO SCH (19:23)
[2022-04-11] MEDS: TAMSULOSIN HCL 0.4 MG CAP PO SCH (19:23)
[2022-04-12] MEDS: VANCOMYCIN HCL 1,000 MG in SODIUM CHLORIDE 0.9% 250 ML IV SCH (05:25)
[2022-04-12] MEDS: NSS + 20MEQ KCL 20 MEQ/1,000 ML BAG IV SCH (05:26)
[2022-04-12] MEDS ORDERED: LIDOCAINE 2% 2 ML VIAL/AMP(20MG/ML) INFIL ONE (07:05)
[2022-04-12] MEDS ORDERED: fentaNYL citrate 100 MCG/2 ML VIAL ONE ×3 (07:05→10:12)
[2022-04-12] MEDS ORDERED: PROPOFOL IV EMULSION 10 MG/ML 20 ML VIAL IV ONE (07:05)
[2022-04-12] MEDS ORDERED: ONDANSETRON INJ 2 MG/ML 2 ML VIAL ONE (07:05)
[2022-04-12] MEDS ORDERED: MIDAZOLAM HCL 1 MG/ML 2ML VIAL ONE (07:06)
[2022-04-12] MEDS ORDERED: ceFAZolin 330 MG/ML 1 GM VIAL ONE (07:08)
[2022-04-12] MEDS ORDERED: ePHEDrine sulfate 50 MG/ML AMP IV PRN ×2 (07:23→07:34)
[2022-04-12] MEDS ORDERED: ONDANSETRON INJ 2 MG/ML 2 ML VIAL IV PRN ×2 (07:23→07:34)
[2022-04-12] MEDS ORDERED: HYDROmorphone INJ 2 MG/ML SYR/VIAL IV PRN ×2 (07:23→07:34)
[2022-04-12] MEDS ORDERED: ATROPINE SULFATE 0.1 MG/ML 10ML SYR IV PRN ×2 (07:23→07:34)
[2022-04-12] MEDS ORDERED: PROMETHAZINE HCL 12.5 MG in SODIUM CHLORIDE 0.9% 50 ML IV PRN ×2 (07:23→07:34)
--- NOTE | 2022-04-12 07:23 | Anesthesiology Consultation ---
Date of Service April 12, 2022 Assessment & Plan Chart Review Chart Review: Acceptable Risk for Surgery Consults Requested none History Surgery Operation Date: 04/12/22 07:00 Proposed Procedures p Incision and Drainage Knee(Right) - Mickey Varela, Height/Weight Height: 6 ft 2 in Weight: 88.8 kg Allergies Allergy/AdvReac Type Severity Reaction Status Date / Time escitalopram [From Lexapro] AdvReac Mild Drowsy Verified 04/10/22 22:59 paroxetine [From Paxil] AdvReac Mild Drowsy Verified 04/10/22 22:59 Medications Home Medications Medication Instructions Recorded Confirmed Last Taken ascorbic acid (vitamin C) 500 mg 500 mg PO QAM 03/23/20 04/10/22 03/14/22 tablet (Vitamin C) vitamin B complex 1 cap PO QAM 04/09/20 04/10/22 03/14/22 miscellaneous medical supply #1 ea 11/02/20 02/04/22 Unknown acetaminophen 500 mg tablet 1,000 mg PO BID Pain 10/14/21 04/10/22 03/21/22 07:00 (Tylenol Extra Strength) atorvastatin 40 mg tablet 40 mg PO HS #90 tabs 01/28/22 04/10/22 03/20/22 19:00 celecoxib 200 mg capsule (Celebrex) 200 mg PO QAM 02/04/22 04/10/22 03/14/22 cholecalciferol (vitamin D3) 125 125 mcg PO QAM 02/04/22 04/10/22 03/14/22 mcg (5,000 unit) tablet (Vitamin D3) clopidogrel 75 mg tablet (Plavix) 75 mg PO QAM 02/04/22 04/10/22 03/14/22 pantoprazole 40 mg tablet,delayed 40 mg PO QAM 02/04/22 04/10/22 03/21/22 07:00 release (Protonix) tamsulosin 0.4 mg capsule (Flomax) 0.4 mg PO HS 02/04/22 04/10/22 03/20/22 19:00 venlafaxine 150 mg 150 mg PO QAM 02/04/22 04/10/22 03/21/22 07:00 capsule,extended release 24 hr (Effexor XR) bupropion HCl 150 mg 24 hr tablet, 150 mg PO QAM 03/21/22 04/10/22 03/21/22 07:00 extended release (Wellbutrin XL) oxycodone-acetaminophen 5 mg-325 1 tab PO Q6H PRN pain #30 tabs 03/21/22 04/10/22 Unknown mg tablet aspirin 81 mg tablet,delayed 81 mg PO DAILY 04/10/22 04/10/22 Unknown release diclofenac sodium 1 % topical gel 2 g topical QID PRN Pain 04/10/22 04/10/22 Unknown Active Medications Generic Name Dose Route Start Last Admin Trade Name Freq PRN Reason Stop Dose Admin Acetaminophen 650 mg 04/11/22 00:26 04/11/22 22:19 Acetaminophen 325 Mg Tab PO 05/11/22 00:25 650 mg Q4H PRN Administration pain/fever Atorvastatin Calcium 40 mg 04/11/22 21:00 04/11/22 19:23 Atorvastatin 40 Mg Tab PO 05/11/22 20:59 40 mg HS COCO Administration Bupropion HCl 150 mg 04/11/22 09:00 04/11/22 08:38 Bupropion Xl 150 Mg Tabcr PO 05/11/22 08:59 150 mg QAM COCO Administration Vancomycin HCl 1,000 mg/ 270 mls @ 200 mls/hr 04/11/22 06:00 04/12/22 06:52 Sodium Chloride IV 05/23/22 05:59 Infused Q12H COCO Infusion Ceftriaxone Sodium 2,000 mg/ 70 mls @ 140 mls/hr 04/11/22 14:00 04/11/22 14:54 Dextrose IV 05/23/22 13:59 Infused Q24H COCO Infusion Protocol Potassium Chloride/Sodium Chloride 20 meq in 1,000 mls @ 90 mls/hr 04/11/22 18:15 04/12/22 07:20 Normal Saline W/20 Meq Kcl IV 04/12/22 10:55 0 mls/hr .Q11H7M COCO Infusion Protocol Oxycodone/Acetaminophen 1 tab 04/11/22 00:26 04/11/22 17:12 Oxycodone/Acetaminophen 5mg/325mg Tab PO 04/25/22 00:25 1 tab Q6H PRN Administration pain Pantoprazole Sodium 40 mg 04/11/22 09:00 04/11/22 08:38 Pantoprazole 40 Mg Tab PO 05/11/22 08:59 40 mg QAM COCO Administration Tamsulosin HCl 0.4 mg 04/11/22 21:00 04/11/22 19:23 Tamsulosin Hcl 0.4 Mg Cap PO 05/11/22 20:59 0.4 mg HS COCO Administration Venlafaxine HCl 150 mg 04/11/22 09:00 04/11/22 08:38 Venlafaxine Hcl Xr 150 Mg Capxr PO 05/11/22 08:59 150 mg QAM COCO Administration Past Medical History Medical History Anxiety 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 2014 - Tubular Adenoma. History of cystoscopy cystoscopy, stent placement: 03/24/20: MAC sedation at [facility] History of loop recorder insert by Dr. Schmitz - 07/2020 - 3 months post CVA - no current issues - follows Dr. Schmitz yearly History of repair of rotator cuff RT History of surgery on right wrist proximinal row History of tooth extraction S/P foot surgery right-05/06/2019 left-09/02/2021 Social History Smoking Status: Former smoker tobacco type: cigarettes Smoking cigarettes per day: 1/2 pack/day Do You Dip or Chew Tobacco: No Smoking End Date: 45 years ago Hx Alcohol Use: Yes Alcohol type: beer alcohol intake frequency: a few times a month Hx Substance Use: No substance use type: does not use Physical Exam Vital Signs Last Vital Signs Temp 37.5 C 04/12/22 06:06 Pulse 110 H 04/12/22 06:06 Resp 20 04/12/22 06:06 BP 110/71 04/12/22 06:06 Pulse Ox 96 04/12/22 06:06 O2 Del Method 04/11/22 14:42 O2 Flow Rate 2 04/11/22 00:01 Testing Laboratory Results 04/11/22 08:53 04/11/22 08:53 PT 11.4 Seconds (9.0-12.0) 04/10/22 19:40 INR 1.1 (0.9-1.1) 04/10/22 19:40 APTT 31.3 Seconds (21.0-31.0) H 04/10/22 19:40 Urine Color Dark Yellow 04/11/22 10:23 Urine Appearance Clear (Clear) 04/11/22 10:23 Urine pH 6.5 (4.5-7.5) 04/11/22 10:23 Ur Specific Williamson 1.020 (1.000-1.030) 04/11/22 10:23 Urine Protein Negative (Negative) 04/11/22 10:23 Urine Glucose (UA) Negative (Negative) 04/11/22 10:23 Urine Ketones Trace (Negative) H 04/11/22 10:23 Urine Nitrite Negative (Negative) 04/11/22 10:23 Ur Leukocyte Esterase Trace (Negative) H 04/11/22 10:23 Urine WBC (Auto) 1-5 /hpf (0-5) 04/11/22 10:23 Urine RBC (Auto) 0-4 /hpf (0-4) 04/11/22 10:23 U Hyaline Cast (Auto) 0 /lpf (0-5) 04/11/22 10:23 U Epithel Cells (Auto) 5-10 /lpf (0-5) H 04/11/22 10:23 Urine Bacteria (Auto) Negative (Negative) 04/11/22 10:23 04/10/22 19:40 Aerobic Blood Culture - Preliminary Blood No growth in Aerobic bottle after 24 hours. Anaerobic Blood Culture - Preliminary No growth in Anaerobic bottle after 24 hours. 04/10/22 19:40 Aerobic Blood Culture - Preliminary Blood No growth in Aerobic bottle after 24 hours. Anaerobic Blood Culture - Preliminary No growth in Anaerobic bottle after 24 hours. 04/10/22 21:47 Urine Culture - Preliminary Urine,Clean Catch Pin-point growth present, reincubating.
--- NOTE | 2022-04-12 07:29 | History & Physical Bridge Note ---
Date of Service April 12, 2022 History & Physical Bridge Note I have examined the patient, reviewed the History & Physical and in the interval since the performance of the History & Physical I have noted the following changes of clinical significance: no changes noted
[2022-04-12] MEDS ORDERED: DAKIN'S SOLN 0.25% HALF STRENGTH 473ML BTL EXT ONE (07:31)
[2022-04-12] MEDS ORDERED: fentaNYL citrate 100 MCG/2 ML VIAL IV PRN (07:34)
--- NOTE | 2022-04-12 09:11 | Operative Report ---
PG Post Operative Report Pre & Post Diagnosis Operation Date: 04/12/22 07:35 Pre-Op Diagnosis: Infection of right total knee replacement Post-Op Diagnosis: Infection of right total knee replacement I identified the patient and participated in the time-out.: Yes Procedure Operation Date: 04/12/22 07:35 Actual Procedures Irrigation and Debridement Right Knee with Poly Exchange (Right) - Mickey Varela DO Surgeon Mickey Varela DO Health Concierge Mickey Burns PA-C Estimated Blood Loss 20 Findings Consistent with Post-Op Diagnosis Specimens Superficial wound cultures and deep knee cultures Description of Procedure On April 12, 2022 Vargas was brought down from his hospital room to the preoperative holding area. The operative extremity identified and signed. He was taken back to the operative room and laid on the table in supine position. He was put under general anesthesia. The right knee was prepped and draped in sterile fashion. A timeout was done. The patient and the operative extremity was properly identified. The previous midline incision was opened back up. There was gross pus in the subcutaneous region. This tract underneath the quad and infected the deep knee prosthesis as well. Cultures were taken. The extensor mechanism was irrigated. Previous sutures were removed and a subvastus arthrotomy was once again opened back up. Cultures were taken of the deep knee. It appeared to be the same color fluid in the same infection. The polyethylene component was then removed. The wound was then irrigated with about a liter of normal saline solution. Time was then spent doing an extensive debridement around the medial lateral gutters and the posterior aspect of the knee. Significant time was spent ensuring that all infectious appearing tissue was removed. A 3-minute lavage of Dakin's solution was then done. After 3 minutes the knee was scrubbed vigorously with a Betadine scrub brush. The knee was then washed out with 3 L of normal saline solution with pulse lavage. A 3-minute lavage of dilute Betadine was then done. After 3 minutes the knee was scrubbed vigorously with a Betadine scrub brush. The knee was then washed out with 3 L normal saline solution with pulse lavage. After that the knee was washed out with an additional 3 L of normal saline solution with Ancef. The Bovie tip, suction tip, and pulse lavage were all changed. New drapes were placed. New gloves were placed. A clean table was then used. The tourniquet was deflated. Hemostasis was obtained. The knee was irrigated. The final size 12 MC poly was then snapped into place. The knee was brought through full range of motion and felt to be stable. 2 drains were placed. The dissection medicine is almost closed with #1 Vicryl suture. Skin was closed with 2-0 Vicryl, 3-0 V-Lock suture, and iban. He was then placed in a soft compressive dressing. He was then extubated and transferred to a [facility]. He was taken to the postanesthesia care unit in stable condition. He tolerated the procedure well. Mickey Burns PA-C, was present for the entire procedure. He was critical for patient positioning, prepping, draping, retraction exposure, wound closure and application of sterile dressing. I attest to the content of the Intraoperative Record and any orders documented therein. Any exceptions are noted below.
--- NOTE | 2022-04-12 09:15 | Hospitalist Progress Note ---
Date of Service April 12, 2022 Assessment & Plan (1) Infection of total knee replacement: Plan: 67 y/o M Hx HARRIET, depression, HLD, cryptogenic CVA, osteoarthritis. The pt underwent a R TKA 03/21. His iban were removed one week prior. He was on track with rehab and did not suffer any immediate post-op complications. Had been on ASA/Plavix for DVT prophylaxis post-operatively Over the past 1-2 days, he has developed pain, redness and swelling of the R knee surrounding the wound site. Patient reported he had had purulent drainage from the distal aspect of his incision prior to admission Venous Doppler with NO acute DVT within RLE. Small amount of chronic nonocclusive thrombus within med right superficial femoral vein. Complex popliteal cyst. CTA negative for PE as checked for sinus tachy on admit --> Did get dose heparin SQ last evening while holding ASA/Plavix. (Hx cryptogenic CVA in Mar 2020 s/p TPN and flown to [facility], residual left sided weakness. Had hypercoagable workup) Orthopedics consulted S/P Irrigation and Debridement Right Knee with Poly Exchange (Right) - Mickey Varela, on 04/12. EBL 20cc. 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 Monitoring to keep ~2 given strong fmaily hx afib Mag 1.8 on AM labs --> 2gm IV additional ordered post-op CTA NEGATIVE for PE (4) Urinary retention: Plan: Urinary retention reported Bladder scan >1100cc this morning, prior issues but not this bad St cath/urine cx obtained Repeat still retention, Meeks order placed. Monitor cx Does have hx kidney stones, congenital urinary issues, follows with urology -- consider consult while inpatient Monitor cx/urine output Maintain Meeks for now -- clear yellow urine draining Voiding trial possibly tomorrow when more ambulatory (5) CVA (cerebral vascular accident): Plan: Reported baseline LUE/LLE weakness following CVA in 2019 - 03/25/20 had RIGHT hemispheric CVA, received TPA/flown to [facility] and tx to [facility] following for rehab. Has loop recorder in place He had a stroke early in march followed by an arterial embolism, source unknown. no issues since being on asa/plavix, 30 day without afib, did have brief episodes of atrial tachycardia STRONG family hx afib, denied any palpitations to me, but as above, checking CTA to r/o underlying PE No increased weakness/new focal deficit on exam 04/12 Heparin SQ x 1 last evening Per ortho, ok to resume asa/plavix in AM 04/13 ask to check pacemaker for afib (6) Obstructive sleep apnea: Plan: continue CPAP -- can use home CPAP (7) Hyperlipidemia: Plan: continue statin (8) Hypomagnesemia: Plan: replace/resolved on repeat but additional IV ordered to keep closer to 2 post-op Plan continued inpatient stay monitor cultures ID consult for Thursday, likely to need 6 wks abx PT/OT consulted, CM to follow Admission and Anticipated Discharge Date Admission Date: April 10, 2022 Subjective eval post op at bedside, understands likely 6 wks IV abx tolerated procedure, post op pain -01/12, just got dose of oxycodone on 2L NC with SpO2 98% Alert/oriented but sleepy from anesthesia, has crackers at bedside but going to eat after resting. Discussed CTA negative for PE Given dose of heparin last evening and keeping electrolytes under control to prevent any afib given strong family history. Labs from AM not yet drawn --> asked RN to call lab to come up to draw. Blood cultures NGTD -- monitoring. Per , daughter is PA about 4 hours away and she is updating her. Patient had been doing well/ambulating with a cane per , and had been getting weaker and weaker and then son had to lift to get into car and they knew something was wrong. They said they took pictures with home health with the erythema and was told this was normal post-op findings. She states home health was concerned there was an infection at that time. She states the PA yesterday from orthopedics was up and told her he did not think the knee was infected at all and the swelling was expected post- operatively. Skeptical about his input. Per ortho, can resume ASA/Plavix tomorrow. Would like to remain on medical service. Review of Systems Review of Systems: All systems reviewed & are unremarkable except as noted in HPI & below Physical Exam Physical Exam: General: WD/WN male laying in bed post-op, moderately uncomfortable but reported improved and just got oxycodone, at bedside, NAD HEENT: head normocephalic, atraumatic, mm slightly dry but improved from yesterday, trachea midline Resp: CTAB, no w/c, on room air CV: tachycardic (rate 107bpm) regular, no m/r, no calf tenderness, pulses palpable GI: +BS, nontender : meeks draining clear yellow urine MSK/Neuro: baseline LUE/LLE weakness from prior CVA (no worse per patient), follows commands, no facial droop, alert/oriented x 3 RLE knee with gibran wrap dressing in place (not removed), able to wiggle toes, NVI, pulses palpable Hemovac with bloody drainage no lymphangitic streaking up the thigh Skin: see above, otherwise warm/dry Results & Data Results & Data ([facility]) Vital Signs (Past 12 Hours) Vital Signs Temp Pulse Resp BP Pulse Ox 04/12/22 06:06 37.5 C 110 H 20 110/71 96 04/11/22 23:49 37.1 C 110 H 04/11/22 23:24 37.7 C H 118 H 18 102/62 93 Laboratory Results 04/12/22 04/12/22 04/12/22 Range/Units 12:00 12:00 12:00 WBC 11.70 H (4.8-10.8) K/ul RBC 3.13 L (4.63-6.08) M/uL Hgb 9.6 L (14.0-18.0) g/dl Hct 28.7 L (40.1-51.0) % MCV 91.7 (80.0-100.0) fL MCH 30.7 (25.0-34.0) pg MCHC 33.4 (32.0-36.0) g/dL RDW Std Deviation 46.5 H (36.4-46.3) fL RDW Coeff of Reba 13.9 (11.5-14.5) % Plt Count 256 (130-400) K/uL MPV 9.3 L (9.4-12.4) fL Immature Gran % (Auto) 0.9 % Neut % (Auto) 91.5 % Lymph % (Auto) 2.5 % Whitley % (Auto) 4.0 % Eos % (Auto) 0.8 % Baso % (Auto) 0.3 % Neut # (Auto) 10.71 H (1.4-6.5) K/uL Lymph # (Auto) 0.29 L (1.2-3.4) K/uL Whitley # (Auto) 0.47 (0.24-0.82) K/uL Eos # (Auto) 0.09 (0-0.50) K/uL Baso # (Auto) 0.03 (0-0.2) K/uL Immature Gran # (Auto) 0.11 H (0.00-0.02) K/uL Polychromasia 1+ Echinocytes 1+ Acanthocytes (Spur) 1+ Sodium (136-145) mmol/L Potassium (3.5-5.1) mmol/L Chloride (98-107) mmol/L Carbon Dioxide (21-32) mmol/L Anion Gap (3-11) BUN (6-23) mg/dl Creatinine (0.6-1.4) mg/dl Est Cr Clr Drug Dosing ml/min Est GFR ( Amer) ml/min Est GFR (Non-Af Amer) ml/min BUN/Creatinine Ratio (10-20) Glucose (70-99(Fasting)) mg/dl Calcium (8.5-10.1) mg/dl Magnesium (1.7-2.4) mg/dl Total Bilirubin (0.2-1.0) mg/dl AST (13-39) U/L ALT (7-52) U/L Alkaline Phosphatase (34-104) U/L Total Protein (6.0-8.3) gm/dl Albumin (3.4-5.0) gm/dl Globulin (2.5-4.0) gm/dl Albumin/Globulin Ratio (0.9-2) TSH 4.386 (0.300-4.500) uIu/ml Random Vancomycin 12.5 (10-20) mcg/ml 04/12/22 Range/Units 12:00 WBC (4.8-10.8) K/ul RBC (4.63-6.08) M/uL Hgb (14.0-18.0) g/dl Hct (40.1-51.0) % MCV (80.0-100.0) fL MCH (25.0-34.0) pg MCHC (32.0-36.0) g/dL RDW Std Deviation (36.4-46.3) fL RDW Coeff of Reba (11.5-14.5) % Plt Count (130-400) K/uL MPV (9.4-12.4) fL Immature Gran % (Auto) % Neut % (Auto) % Lymph % (Auto) % Whitley % (Auto) % Eos % (Auto) % Baso % (Auto) % Neut # (Auto) (1.4-6.5) K/uL Lymph # (Auto) (1.2-3.4) K/uL Whitley # (Auto) (0.24-0.82) K/uL Eos # (Auto) (0-0.50) K/uL Baso # (Auto) (0-0.2) K/uL Immature Gran # (Auto) (0.00-0.02) K/uL Polychromasia Echinocytes Acanthocytes (Spur) Sodium 134 L (136-145) mmol/L Potassium 4.0 (3.5-5.1) mmol/L Chloride 105 (98-107) mmol/L Carbon Dioxide 23 (21-32) mmol/L Anion Gap 6 (3-11) BUN 15 (6-23) mg/dl Creatinine 0.80 (0.6-1.4) mg/dl Est Cr Clr Drug Dosing 107.0 ml/min Est GFR ( Amer) 108.7 ml/min Est GFR (Non-Af Amer) 93.7 ml/min BUN/Creatinine Ratio 18.8 (10-20) Glucose 114 H (70-99(Fasting)) mg/dl Calcium 8.2 L (8.5-10.1) mg/dl Magnesium 1.8 (1.7-2.4) mg/dl Total Bilirubin 0.6 D (0.2-1.0) mg/dl AST 10 L (13-39) U/L ALT 8 (7-52) U/L Alkaline Phosphatase 70 (34-104) U/L Total Protein 5.1 L (6.0-8.3) gm/dl Albumin 2.7 L (3.4-5.0) gm/dl Globulin 2.4 L (2.5-4.0) gm/dl Albumin/Globulin Ratio 1.1 (0.9-2) TSH (0.300-4.500) uIu/ml Random Vancomycin (10-20) mcg/ml Diagnostic Findings Chest CTA 04/11/22 14:32 CT ANGIOGRAPHY OF THE CHEST, PULMONARY EMBOLUS PROTOCOL CLINICAL HISTORY: Shortness of breath. Evaluate for pulmonary embolus. COMPARISON STUDY: Chest radiograph April 10, 2022. TECHNIQUE: Following IV administration of 115 mL of Optiray, helical axial images of the chest were obtained utilizing the pulmonary embolus protocol. Maximal intensity projections and sagittal and coronal reformats were viewed on an independent 3D workstation. IV contrast was administered without complication. Automated exposure control was utilized for the study. A dose lowering technique was utilized adhering to the principles of ALARA. CT DOSE: 573.19 mGy.cm FINDINGS: No pulmonary emboli are identified although this exam is mildly compromised given suboptimal opacification. Size of the heart is normal. There is no thoracic aortic dissection. No enlarged thoracic lymph nodes are present. No pneumothorax or pleural effusion is present. The central airways are patent. Subpleural opacities favor atelectasis. There is no consolidation to suggest pneumonia. No acute fracture or suspicious lesion within the visualized bony thorax is noted. Old sternal fracture is present. IMPRESSION: 1. No pulmonary emboli identified although exam mildly compromised given suboptimal penetration. 2. No consolidation to suggest pneumonia. Subpleural opacities consistent with atelectasis. 3. No acute intrathoracic findings. ACT 112: Negative or not required by law. Electronically signed by: Dustin Echevarria M.D. 04/11/2022 5:01 PM PG Care Time/CCT Total # of Minutes Spent Total Time Spent with Patient: Total time spent is greater than 50% in coordination of care (as documented) at patient's floor/unit and/or counseling patient: Coding Level of Care Code 28092 Subseq Hosp Care Lvl 3 Diagnoses Infection of total knee replacement T84.59XA; Z96.659 Cellulitis of knee, right L03.115 Sinus tachycardia R00.0 Urinary retention R33.9 CVA (cerebral vascular accident) I63.9 Obstructive sleep apnea G47.33 Hyperlipidemia E78.5 Hypomagnesemia E83.42
[2022-04-12] MEDS: fentaNYL citrate 100 MCG/2 ML VIAL IV PRN ×4 (09:34→10:20)
--- NOTE | 2022-04-12 10:27 | Anesthesiology Progress Note ---
Date of Service April 12, 2022 Anesthesia Post Procedure Vital Signs Vital Signs: Temp Pulse Pulse Resp BP Pulse Ox O2 Del Method 04/12/22 10:10 36.4 C L 113 H 23 114/90 95 Oxymask 04/12/22 10:00 115 H 17 115/63 95 Oxymask 04/12/22 09:50 111 H 17 115/80 96 Oxymask 04/12/22 09:40 115 H 20 120/80 100 Oxymask 04/12/22 09:30 117 H 19 108/83 100 Oxymask 04/12/22 09:20 36.5 C 121 H 22 115/80 100 Oxymask 04/12/22 06:06 37.5 C 110 H 20 110/71 96 04/11/22 23:49 37.1 C 110 H 04/11/22 23:24 37.7 C H 118 H 18 102/62 93 04/11/22 14:42 36.7 C 107 H 16 110/67 94 Room Air O2 Flow Rate 04/12/22 10:10 3 04/12/22 10:00 4 04/12/22 09:50 4 04/12/22 09:40 4 04/12/22 09:30 6 04/12/22 09:20 6 04/12/22 06:06 04/11/22 23:49 04/11/22 23:24 04/11/22 14:42 Pain Intensity Right Knee: Pain Intensity: 5 Transfer of Care Handoff Completed per policy Notes Mental Status: alert / awake / arousable and participated in evaluation Patient Amnestic to Procedure: Yes Nausea / Vomiting: adequately controlled Pain: adequately controlled Airway Patency, RR, SpO2: stable & adequate BP & HR: stable & adequate Hydration State: stable & adequate Anesthetic Complications: no major complications apparent
[2022-04-12] MEDS ORDERED: METOCLOPRAMIDE HCL INJ 5 MG/ML 2 ML VIAL IV PRN (10:57)
[2022-04-12] MEDS ORDERED: MAGNESIUM HYDROXIDE SUSP 30 ML UDC PO PRN (10:57)
[2022-04-12] MEDS ORDERED: NALOXONE HCL 0.4 MG/1 ML VIAL/CARP IV PRN (10:57)
[2022-04-12] MEDS ORDERED: SODIUM CHLORIDE 0.9% 1000ML 1,000 ML IV SCH (10:57)
[2022-04-12] MEDS ORDERED: bisacodyL 10 MG SUPP PR PRN (10:57)
[2022-04-12] MEDS: VENLAFAXINE HCL XR 150 MG CAPXR PO SCH (11:08)
[2022-04-12] MEDS: buPROPion XL 150 MG TABCR PO SCH (11:08)
[2022-04-12] MEDS: PANTOprazole 40 MG TAB PO SCH (11:08)
[2022-04-12] MEDS: oxyCODONE/ACETAMINOPHEN 5mg/325mg TAB PO PRN ×2 (11:08→15:59)
[2022-04-12 12:21] LABS: Hematocrit (blood only) 28.7 % (40.1-51.0); Hemoglobin 9.6 g/dl (14.0-18.0); Mean Corpuscular Hemoglobin 30.7 pg (25.0-34.0); Mean Corpuscular Hgb Conc 33.4 g/dL (32.0-36.0); Mean Corpuscular Volume 91.7 fL (80.0-100.0); Mean Platelet Volume 9.3 fL (9.4-12.4); Platelet Count 256 K/uL (130-400); RDW Coefficient of Variation 13.9 % (11.5-14.5); RDW Standard Deviation 46.5 fL (36.4-46.3); Red Blood Count 3.13 M/uL (4.63-6.08)
[2022-04-12 12:36] LABS: Acanthocytes 1+; Basophils # (auto) 0.03 K/uL (0-0.2); Basophils % (auto) 0.3 %; Echinocytes 1+; Eosinophils # (auto) 0.09 K/uL (0-0.50); Eosinophils % (auto) 0.8 %; Immature Granulocytes # (auto) 0.11 K/uL (0.00-0.02); Immature Granulocytes % (auto) 0.9 %; Lymphocytes # (auto) 0.29 K/uL (1.2-3.4); Lymphocytes % (auto) 2.5 %; Monocytes # (auto) 0.47 K/uL (0.24-0.82); Neutrophils # (auto) 10.71 K/uL (1.4-6.5); Neutrophils % (auto) 91.5 %; Polychromasia 1+
[2022-04-12 12:48] LABS: Albumin Globulin Ratio 1.1 (0.9-2); Albumin Level 2.7 gm/dl (3.4-5.0); BUN Creatinine Ratio 18.8 (10-20); Bilirubin,Total 0.6 mg/dl (0.2-1.0); Calcium 8.2 mg/dl (8.5-10.1); Est GFR (African American) 108.7 ml/min; Est GFR (Non-African American) 93.7 ml/min; Globulin 2.4 gm/dl (2.5-4.0); Magnesium 1.8 mg/dl (1.7-2.4); Total Protein 5.1 gm/dl (6.0-8.3)
[2022-04-12] MEDS: KETOROLAC TROMETHAMINE 15 MG/ML VIAL IV SCH ×2 (12:48→17:51)
[2022-04-12] MEDS: CLOPIDOGREL BISULFATE 75 MG TAB PO SCH (12:48)
[2022-04-12] MEDS: MULTIVITAMIN TAB PO SCH (12:48)
[2022-04-12] MEDS: ASPIRIN 81 MG ECTAB PO SCH (12:48)
[2022-04-12] MEDS: DOCUSATE SODIUM 100 MG CAP PO SCH ×2 (12:48→21:00)
--- NOTE | 2022-04-12 13:08 | Pharmacy Report ---
Pharmacy PK ABX Note - Date of Service April 12, 2022 - Assessment and Plan Assessment 67 year old M on vancomycin and ceftriaxone for R knee infection. Hx of enterococcus faecalis on previous cultures. Blood and urine cultures pending. Hx of R TKA on 03/2022. POD #0 washout of R knee. Knee cultures pending. Renal function stable. Plan Vancomycin * Random vancomycin level today on 1gm IV q12h regimen, 12.5mcg/mL (~6.5hr level). This correlates with a steady state trough of 10.2 and steady state AUC/MARC of 350mg/L.hr, which is subtherapeutic. * Adjust vancomycin dose to 1500mg IV q12h * Regimen is predicted to achieve target AUC/MARC of 400-600 mg/L.hr * Random level Thursday AM, or sooner if clinically indicated Pharmacy will continue to follow and will adjust dose/frequency as necessary. Thank you. Pharmacy has transitioned to AUC monitoring for vancomycin. AUC/MARC is the preferred PK/PD target and is associated with decreased risk of nephrotoxicity compared to traditional trough targets.
[2022-04-12] MEDS: cefTRIAXone SODIUM 2,000 MG in DEXTROSE 5% 50 ML IV SCH (14:21)
[2022-04-12] MEDS: MAGNESIUM SULFATE / D5W 1 GM/100 ML BAG IV SCH ×2 (15:04→17:16)
[2022-04-12] MEDS: VANCOMYCIN HCL 1,500 MG in SODIUM CHLORIDE 0.9% 500 ML IV SCH (15:04)
[2022-04-12 20:01] LABS: Ferritin 339.6 ng/ml (8-388)
[2022-04-12] MEDS: ATORVASTATIN 40 MG TAB PO SCH (21:00)
[2022-04-12] MEDS: SENNA 8.6 MG TAB PO SCH (21:00)
[2022-04-12] MEDS: TAMSULOSIN HCL 0.4 MG CAP PO SCH (21:00)
[2022-04-13] MEDS: KETOROLAC TROMETHAMINE 15 MG/ML VIAL IV SCH ×3 (00:56→12:21)
[2022-04-13] MEDS: VANCOMYCIN HCL 1,500 MG in SODIUM CHLORIDE 0.9% 500 ML IV SCH ×2 (01:01→13:19)
[2022-04-13] MEDS: oxyCODONE/ACETAMINOPHEN 5mg/325mg TAB PO PRN (06:17)
[2022-04-13 07:33] LABS: Basophils # (auto) 0.01 K/uL (0-0.2); Basophils % (auto) 0.2 %; Eosinophils # (auto) 0.19 K/uL (0-0.50); Eosinophils % (auto) 3.6 %; Hematocrit (blood only) 26.3 % (40.1-51.0); Hemoglobin 8.5 g/dl (14.0-18.0); Immature Granulocytes # (auto) 0.02 K/uL (0.00-0.02); Immature Granulocytes % (auto) 0.4 %; Lymphocytes # (auto) 0.41 K/uL (1.2-3.4); Lymphocytes % (auto) 7.7 %; Mean Corpuscular Hemoglobin 29.8 pg (25.0-34.0); Mean Corpuscular Hgb Conc 32.3 g/dL (32.0-36.0); Mean Corpuscular Volume 92.3 fL (80.0-100.0); Mean Platelet Volume 9.8 fL (9.4-12.4); Monocytes # (auto) 0.32 K/uL (0.24-0.82); Neutrophils # (auto) 4.37 K/uL (1.4-6.5); Neutrophils % (auto) 82.1 %; Platelet Count 234 K/uL (130-400); RDW Coefficient of Variation 13.7 % (11.5-14.5); RDW Standard Deviation 46.3 fL (36.4-46.3); Red Blood Count 2.85 M/uL (4.63-6.08); White Blood Count 5.32 K/ul (4.8-10.8)
[2022-04-13] MEDS: DOCUSATE SODIUM 100 MG CAP PO SCH ×2 (08:00→20:58)
[2022-04-13] MEDS: buPROPion XL 150 MG TABCR PO SCH (08:00)
[2022-04-13] MEDS: VENLAFAXINE HCL XR 150 MG CAPXR PO SCH (08:00)
[2022-04-13] MEDS: MULTIVITAMIN TAB PO SCH (08:00)
[2022-04-13] MEDS ORDERED: dexAMETHasone 4 MG TAB PO SCH (08:00)
[2022-04-13] MEDS: PANTOprazole 40 MG TAB PO SCH (08:00)
[2022-04-13] MEDS: CLOPIDOGREL BISULFATE 75 MG TAB PO SCH (08:00)
[2022-04-13] MEDS: ASPIRIN 81 MG ECTAB PO SCH (08:01)
--- NOTE | 2022-04-13 08:01 | Orthopedic Progress Note ---
Date of Service April 13, 2022 Assessment & Plan (1) Infection of total knee replacement: He is currently on ceftriaxone and vancomycin. The cultures from yesterday are still pending. He has been restarted on his aspirin and Plavix. He can be weightbearing as tolerated and be seen by physical therapy today. He will likely need PICC line placement. I plan on removing the drains tomorrow as long as the output is minimal. Mariana Kaye was seen and examined at bedside this morning. Overall he is doing okay. A lot of the pressure in his knee is gone. His knee is pretty sore. He had no acute events overnight.. Review of Systems All systems reviewed & are unremarkable except as noted in HPI & below. Physical Exam On physical examination the right knee, the leg is out full extension. The drains are to suction. The dressing is clean and dry.. Results & Data Results & Data Laboratory Results . Diagnostic Findings . PG Care Time/CCT Total # of Minutes Spent Total Time Spent with Patient: Total time spent is greater than 50% in coordination of care (as documented) at patient's floor/unit and/or counseling patient: Coding Level of Care Code 14897 Post Operative Follow-Up Diagnoses Infection of total knee replacement T84.59XA; Z96.659
[2022-04-13 08:10] LABS: Albumin Globulin Ratio 1.2 (0.9-2); Albumin Level 2.7 gm/dl (3.4-5.0); BUN Creatinine Ratio 20.5 (10-20); Bilirubin,Total 0.4 mg/dl (0.2-1.0); Creatinine Clr Calc Pharmacy 109.8 ml/min; Est GFR (African American) 109.8 ml/min; Est GFR (Non-African American) 94.7 ml/min; Globulin 2.3 gm/dl (2.5-4.0); Magnesium 2.1 mg/dl (1.7-2.4); Potassium 3.8 mmol/L (3.5-5.1)
--- NOTE | 2022-04-13 09:34 | Hospitalist Progress Note ---
Date of Service April 13, 2022 Assessment & Plan (1) Infection of total knee replacement: Plan: 67 y/o M Hx HARRIET, depression, HLD, cryptogenic CVA, osteoarthritis. The pt underwent a R TKA 03/21. His iban were removed one week prior. He was on track with rehab and did not suffer any immediate post-op complications. Had been on ASA/Plavix for DVT prophylaxis post-operatively Over the past 1-2 days, he has developed pain, redness and swelling of the R knee surrounding the wound site. Patient reported he had had purulent drainage from the distal aspect of his incision prior to admission * Venous Doppler with NO acute DVT within RLE. --> Small amount of chronic nonocclusive thrombus within med right superficial femoral vein. Complex popliteal cyst. * CTA negative for PE as checked for sinus tachy on admit --> Did get dose heparin SQ evening 04/11 while holding ASA/Plavix (Hx cryptogenic CVA in Mar 2020 s/p TPN and flown to [facility], residual left sided weakness. Had hypercoagable workup) Orthopedics consulted POD #1 S/P Irrigation and Debridement Right Knee with Poly Exchange (Right) - Mickey Varela, DO on 04/12. EBL 20cc. Of note, per OP report, DEEP infection WBC 13.7k --> 5.32K, no further temps since 37.7C on 04/11 Blood cultures NGTD from admit Pain control/antiemetics prn Bowel regimen colace BID, senna HS. Last BM evening of aspiration 04/11. Suppository if needed given starting PO iron Hgb 11s-> 8.5 on AM labs, acute blood loss anemia from surgery for 11.4--> 9.6 was on continuous IVF and suspect some aspect of dilutional but also in setting of antiplatelet therapy Of note, ASA/Plavix resumed by orthopedic team directly following surgery and hemovac with continued bloody drainage May need to keep drain longer than tomorrow, however ortho hopeful for pulling this tomorrow. Will need to monitor for any hemarthrosis/hemovac drainage (50cc this morning) Iron studies checked --> Iron 11, trans % 5. Given infection wanting to hold off IV venofer for now and will monitor. Started once daily PO supplementation as working on bowel regimen as well. Consider increasing to BID vs IV pending repeat Consult ID tomorrow pending cultures --> cultures from knee initially no organisms, many WBC, now growing staph species on preliminary. Monitor, likely able to d/c rocephin but will continue for now until cx finalized CM aware of likely need for 6 wks IV abx continued inpatient stay PT/OT consulted (2) Cellulitis of knee, right: (3) Sinus tachycardia: Plan: on admit, HR 135 CTA ordered given recent surgery, NEGATIVE for PE ordered as Venous Doppler non acute. Would rec f/u coag clinic next week to see about recs from Dr Parker in patient with cryptogenic stroke 2 years ago Mag checked, 1.5 --> IV replacement ordered and 1.8 on repeat, additional 2gm IV post-op to prevent issues Mag 2.1 on AM labs, HR 97bpm (4) Urinary retention: Plan: Urinary retention reported Bladder scan >1100cc this morning, prior issues but not this bad St cath/urine cx obtained Repeat still retention, Meeks order placed. Monitor cx Monitor cx/urine output --> NO GROWTH Maintain meeks for now while working on ambulation, plan for voiding trial tomorrow Does have hx kidney stones, congenital urinary issues, follows with urology -- consider consult while inpatient (5) CVA (cerebral vascular accident): Plan: Reported baseline LUE/LLE weakness following CVA in 2019 - 03/25/20 had RIGHT hemispheric CVA, received TPA/flown to [facility] and tx to [facility] following for rehab. Has loop recorder in place He had a stroke early in march followed by an arterial embolism, source unknown. no issues since being on asa/plavix, 30 day without afib, did have brief episodes of atrial tachycardia STRONG family hx afib, denied any palpitations to me, but as above, checking CTA to r/o underlying PE No increased weakness/new focal deficit on exam 04/12, 04/13 ASA/Plavix resumed as above 04/12 checking pacemaker for afib (6) Obstructive sleep apnea: Plan: continue CPAP -- has home CPAP (7) Hyperlipidemia: Plan: continue statin (8) Hypomagnesemia: Plan: replace/resolved on repeat keep ~2 to prevent any afib post-operatively Plan continued inpatient stay monitor cultures ID consult for Thursday, likely to need 6 wks abx PT/OT consulted, CM to follow Admission and Anticipated Discharge Date Admission Date: April 10, 2022 Subjective eval after lunch doing much better no further lightheadedness pain controlled with ordered medications but having some tightness discussed needing to monitor bleeding on asa/plavix discussed BP -- no further lightheadedness and discussed PO intake. Drinking but states probably not enough. Discussed monitoring /encouraging PO throughout today but if needed can order gentle IV this evening. Monitoring urine cx Discussed hgb, combo Hemovac/antiplatelets post-op and dilutional from IVF Denies any hx bleeding, but checked iron studies and low. start oral iron, IV if blood cultures negative Uptodate on c-scope, gets every 3-5 years, due this month but already reschedule in September with Dr Vela. No unexplained weight loss/night sweat/melena/hematuria or hematochezia. Passing gas but no BM. Discussed suppository if needed Will consult with ID for AM pending cultures. Remains on abx Questions/concerns addressed at this time Review of Systems Review of Systems: All systems reviewed & are unremarkable except as noted in HPI & below Physical Exam Physical Exam: General: WD/WN male sitting up in bed, appears much more comfortable today, NAD HEENT: head normocephalic, atraumatic, mm slightly dry but improved from yesterday (about same as day prior, patient wanting to push oral fluids), trachea midline Resp: CTAB, no w/c, on room air CV: rate 97bpm, regular, no m/r, pulses palpable, NVI GI: +BS, +distension (minimal), nontender, no guarding : meeks draining more concentrated yellow urine MSK/Neuro: baseline LUE/LLE weakness from prior CVA (no worse per patient), follows commands, no facial droop, alert/oriented x 3 RLE knee with gibran wrap dressing in place (not removed), able to wiggle toes, NVI, pulses palpable Hemovac with bloody drainage no lymphangitic streaking up the thigh Skin: see above, otherwise warm/dry Results & Data Results & Data ([facility]) Vital Signs (Past 12 Hours) Vital Signs Temp Pulse Resp BP Pulse Ox O2 Del Method 04/13/22 07:57 37 C 71 18 99/65 L 94 Room Air 04/13/22 04:17 36.8 C 94 H 18 122/73 95 Room Air 04/12/22 22:49 36.9 C 100 H 18 106/66 95 Room Air Laboratory Results 04/13/22 04/13/22 04/13/22 Range/Units 06:41 06:41 06:41 WBC 5.32 (4.8-10.8) K/ul RBC 2.85 L (4.63-6.08) M/uL Hgb 8.5 L (14.0-18.0) g/dl Hct 26.3 L (40.1-51.0) % MCV 92.3 (80.0-100.0) fL MCH 29.8 (25.0-34.0) pg MCHC 32.3 (32.0-36.0) g/dL RDW Std Deviation 46.3 (36.4-46.3) fL RDW Coeff of Reba 13.7 (11.5-14.5) % Plt Count 234 (130-400) K/uL MPV 9.8 (9.4-12.4) fL Immature Gran % (Auto) 0.4 % Neut % (Auto) 82.1 % Lymph % (Auto) 7.7 % Dimmit % (Auto) 6.0 % Eos % (Auto) 3.6 % Baso % (Auto) 0.2 % Neut # (Auto) 4.37 (1.4-6.5) K/uL Lymph # (Auto) 0.41 L (1.2-3.4) K/uL Dimmit # (Auto) 0.32 (0.24-0.82) K/uL Eos # (Auto) 0.19 (0-0.50) K/uL Baso # (Auto) 0.01 (0-0.2) K/uL Immature Gran # (Auto) 0.02 (0.00-0.02) K/uL Polychromasia Echinocytes Acanthocytes (Spur) Sodium 128 L (136-145) mmol/L Potassium 3.8 (3.5-5.1) mmol/L Chloride 102 (98-107) mmol/L Carbon Dioxide 23 (21-32) mmol/L Anion Gap 3 (3-11) BUN 16 (6-23) mg/dl Creatinine 0.78 (0.6-1.4) mg/dl Est Cr Clr Drug Dosing 109.8 ml/min Est GFR ( Amer) 109.8 ml/min Est GFR (Non-Af Amer) 94.7 ml/min BUN/Creatinine Ratio 20.5 H (10-20) Glucose 103 H (70-99(Fasting)) mg/dl Calcium 8.0 L (8.5-10.1) mg/dl Magnesium 2.1 (1.7-2.4) mg/dl Iron (35-175) mcg/dl TIBC (250-450) mcg/dl Unsaturated IBC (155-355) mcg/dl Transferrin % Sat (20-50) % Ferritin (8-388) ng/ml Total Bilirubin 0.4 (0.2-1.0) mg/dl AST 10 L (13-39) U/L ALT 8 (7-52) U/L Alkaline Phosphatase 74 (34-104) U/L Total Protein 5.0 L (6.0-8.3) gm/dl Albumin 2.7 L (3.4-5.0) gm/dl Globulin 2.3 L (2.5-4.0) gm/dl Albumin/Globulin Ratio 1.2 (0.9-2) TSH (0.300-4.500) uIu/ml Random Vancomycin (10-20) mcg/ml Blood Type O Positive Antibody Screen NEGATIVE 04/12/22 04/12/22 04/12/22 Range/Units 12:00 12:00 12:00 WBC (4.8-10.8) K/ul RBC (4.63-6.08) M/uL Hgb (14.0-18.0) g/dl Hct (40.1-51.0) % MCV (80.0-100.0) fL MCH (25.0-34.0) pg MCHC (32.0-36.0) g/dL RDW Std Deviation (36.4-46.3) fL RDW Coeff of Reba (11.5-14.5) % Plt Count (130-400) K/uL MPV (9.4-12.4) fL Immature Gran % (Auto) % Neut % (Auto) % Lymph % (Auto) % Dimmit % (Auto) % Eos % (Auto) % Baso % (Auto) % Neut # (Auto) (1.4-6.5) K/uL Lymph # (Auto) (1.2-3.4) K/uL Dimmit # (Auto) (0.24-0.82) K/uL Eos # (Auto) (0-0.50) K/uL Baso # (Auto) (0-0.2) K/uL Immature Gran # (Auto) (0.00-0.02) K/uL Polychromasia Echinocytes Acanthocytes (Spur) Sodium (136-145) mmol/L Potassium (3.5-5.1) mmol/L Chloride (98-107) mmol/L Carbon Dioxide (21-32) mmol/L Anion Gap (3-11) BUN (6-23) mg/dl Creatinine (0.6-1.4) mg/dl Est Cr Clr Drug Dosing ml/min Est GFR ( Amer) ml/min Est GFR (Non-Af Amer) ml/min BUN/Creatinine Ratio (10-20) Glucose (70-99(Fasting)) mg/dl Calcium (8.5-10.1) mg/dl Magnesium (1.7-2.4) mg/dl Iron 11 L (35-175) mcg/dl TIBC 207 L (250-450) mcg/dl Unsaturated IBC 196 (155-355) mcg/dl Transferrin % Sat 5 L (20-50) % Ferritin 339.6 (8-388) ng/ml Total Bilirubin (0.2-1.0) mg/dl AST (13-39) U/L ALT (7-52) U/L Alkaline Phosphatase (34-104) U/L Total Protein (6.0-8.3) gm/dl Albumin (3.4-5.0) gm/dl Globulin (2.5-4.0) gm/dl Albumin/Globulin Ratio (0.9-2) TSH 4.386 (0.300-4.500) uIu/ml Random Vancomycin 12.5 (10-20) mcg/ml Blood Type Antibody Screen 04/12/22 04/12/22 Range/Units 12:00 12:00 WBC 11.70 H (4.8-10.8) K/ul RBC 3.13 L (4.63-6.08) M/uL Hgb 9.6 L (14.0-18.0) g/dl Hct 28.7 L (40.1-51.0) % MCV 91.7 (80.0-100.0) fL MCH 30.7 (25.0-34.0) pg MCHC 33.4 (32.0-36.0) g/dL RDW Std Deviation 46.5 H (36.4-46.3) fL RDW Coeff of Reba 13.9 (11.5-14.5) % Plt Count 256 (130-400) K/uL MPV 9.3 L (9.4-12.4) fL Immature Gran % (Auto) 0.9 % Neut % (Auto) 91.5 % Lymph % (Auto) 2.5 % Dimmit % (Auto) 4.0 % Eos % (Auto) 0.8 % Baso % (Auto) 0.3 % Neut # (Auto) 10.71 H (1.4-6.5) K/uL Lymph # (Auto) 0.29 L (1.2-3.4) K/uL Dimmit # (Auto) 0.47 (0.24-0.82) K/uL Eos # (Auto) 0.09 (0-0.50) K/uL Baso # (Auto) 0.03 (0-0.2) K/uL Immature Gran # (Auto) 0.11 H (0.00-0.02) K/uL Polychromasia 1+ Echinocytes 1+ Acanthocytes (Spur) 1+ Sodium 134 L (136-145) mmol/L Potassium 4.0 (3.5-5.1) mmol/L Chloride 105 (98-107) mmol/L Carbon Dioxide 23 (21-32) mmol/L Anion Gap 6 (3-11) BUN 15 (6-23) mg/dl Creatinine 0.80 (0.6-1.4) mg/dl Est Cr Clr Drug Dosing 107.0 ml/min Est GFR ( Amer) 108.7 ml/min Est GFR (Non-Af Amer) 93.7 ml/min BUN/Creatinine Ratio 18.8 (10-20) Glucose 114 H (70-99(Fasting)) mg/dl Calcium 8.2 L (8.5-10.1) mg/dl Magnesium 1.8 (1.7-2.4) mg/dl Iron (35-175) mcg/dl TIBC (250-450) mcg/dl Unsaturated IBC (155-355) mcg/dl Transferrin % Sat (20-50) % Ferritin (8-388) ng/ml Total Bilirubin 0.6 D (0.2-1.0) mg/dl AST 10 L (13-39) U/L ALT 8 (7-52) U/L Alkaline Phosphatase 70 (34-104) U/L Total Protein 5.1 L (6.0-8.3) gm/dl Albumin 2.7 L (3.4-5.0) gm/dl Globulin 2.4 L (2.5-4.0) gm/dl Albumin/Globulin Ratio 1.1 (0.9-2) TSH (0.300-4.500) uIu/ml Random Vancomycin (10-20) mcg/ml Blood Type Antibody Screen PG Care Time/CCT Total # of Minutes Spent Total Time Spent with Patient: Total time spent is greater than 50% in coordination of care (as documented) at patient's floor/unit and/or counseling patient: Coding Level of Care Code 12315 Subseq Hosp Care Lvl 3 Diagnoses Infection of total knee replacement T84.59XA; Z96.659 Cellulitis of knee, right L03.115 Sinus tachycardia R00.0 Urinary retention R33.9 CVA (cerebral vascular accident) I63.9 Obstructive sleep apnea G47.33 Hyperlipidemia E78.5 Hypomagnesemia E83.42
[2022-04-13] MEDS: FERROUS SULFATE 325 MG TAB PO SCH (10:39)
[2022-04-13 11:30] LABS: Calcium 7.9 mg/dl (8.5-10.1); Creatinine Clr Calc Pharmacy 115.7 ml/min; Est GFR (African American) 112.2 ml/min; Est GFR (Non-African American) 96.8 ml/min
[2022-04-13] MEDS: cefTRIAXone SODIUM 2,000 MG in DEXTROSE 5% 50 ML IV SCH (13:19)
[2022-04-13 16:20] LABS: Anion Gap 5.6 (3-11)
[2022-04-13] MEDS ORDERED: SODIUM CHLORIDE 0.9% 250 ML IV PRN (17:00)
[2022-04-13] MEDS: SENNA 8.6 MG TAB PO SCH (20:58)
[2022-04-13] MEDS: TAMSULOSIN HCL 0.4 MG CAP PO SCH (20:58)
[2022-04-13] MEDS: ATORVASTATIN 40 MG TAB PO SCH (20:58)
[2022-04-14] MEDS: VANCOMYCIN HCL 1,500 MG in SODIUM CHLORIDE 0.9% 500 ML IV SCH (02:08)
--- NOTE | 2022-04-14 06:42 | Orthopedic Progress Note ---
Date of Service April 14, 2022 Assessment & Plan (1) Infection of total knee replacement: He is currently on ceftriaxone and vancomycin IV. He is on aspirin and Plavix for DVT prophylaxis. So far the cultures have grown back as staph species. We are awaiting final cultures and sensitivities. He can be weightbearing as tolerated. Infectious disease has been consulted. We will continue to follow closely. Subjective Vargas was seen and examined at bedside this morning. Overall he is doing better. His knee is still sore. He has much less pressure than he had before the procedure. Overall he is feeling better. He has no complaints.. Review of Systems All systems reviewed & are unremarkable except as noted in HPI & below. Physical Exam On physical examination the right knee, the dressing was changed and the drains were pulled. He has a minimal effusion no signs of infection.. Results & Data Results & Data Laboratory Results . Diagnostic Findings . PG Care Time/CCT Total # of Minutes Spent Total Time Spent with Patient: Total time spent is greater than 50% in coordination of care (as documented) at patient's floor/unit and/or counseling patient: Coding Level of Care Code 29743 Post Operative Follow-Up Diagnoses Infection of total knee replacement T84.59XA; Z96.659
--- NOTE | 2022-04-14 08:15 | Hospitalist Progress Note ---
Date of Service April 14, 2022 Assessment & Plan (1) Infection of total knee replacement: Plan: 67 y/o M Hx HARRIET, depression, HLD, cryptogenic CVA, osteoarthritis. The pt underwent a R TKA 03/21. His iban were removed one week prior. He was on track with rehab and did not suffer any immediate post-op complications. Had been on ASA/Plavix for DVT prophylaxis post-operatively Over the past 1-2 days, he has developed pain, redness and swelling of the R knee surrounding the wound site. Patient reported he had had purulent drainage from the distal aspect of his incision prior to admission * Venous Doppler with NO acute DVT within RLE. --> Small amount of chronic nonocclusive thrombus within med right superficial femoral vein. Complex popliteal cyst. * CTA negative for PE as checked for sinus tachy on admit --> Did get dose hepar in SQ evening 04/11 while holding ASA/Plavix (Hx cryptogenic CVA in Mar 2020 s/p TPN and flown to [facility], residual left sided weakness. Had hypercoagable workup) Orthopedics consulted POD #2 S/P Irrigation and Debridement Right Knee with Poly Exchange (Right) - Mickey Varela, DO on 04/12. EBL 20cc. Of note, per OP report, DEEP infection WBC 13.7k --> 5.32K, no further temps since 37.7C on 04/11 Blood cultures NGTD from admit Pain control/antiemetics prn Bowel regimen colace BID, senna HS. Last BM 04/14. Continue while started on PO iron Hgb 8.5--> 9.3 (acute blood loss anemia from surgery and resuming antiplatelets as well as dilutional from IVF) Some bleeding additionally once hemovac removed this morning Will need to monitor for any s/sx hemarthrosis given antiplatelet therapy Iron studies checked --> iron low 11, trans % 5. No IV given infection, but started PO, +BM, can increase to BID if tolerated. Does get routine c-scope for polyps, no fmx colon ca or bleeding reported ID consulted --> discussed with Dr Nunez this morning, will plan to switch from Vanco/Ceftriaxone to Ancef 2gm IV Q8 given both cultures with staph aureus, pansensitive. Will eventually need suppressive therapy given exchange per Dr Nunez. She is to see patient later today, consult note pending PICC closer to d/c to be arranged PT/OT consulted, rec rehab. CM aware of need for abx, looking at therapy notes/sending referrals pending Will monitor for any s/sx hemarthrosis/bleeding since removal of hemovac but patient did report doing well with therapy today. Pending if able to go to [facility], would be able to go once abx arranged/if accepted and no further bleeding issues tomorrow on exam. Will confirm with ortho/ID prior to d/c planning Will need outpt ortho follow up as well (2) Cellulitis of knee, right: (3) Sinus tachycardia: Plan: on admit, HR 135 CTA ordered given recent surgery, NEGATIVE for PE ordered as Venous Doppler non acute. Would rec f/u coag clinic next week to see about recs from Dr Parker in patient with cryptogenic stroke 2 years ago Mag checked, 1.5 --> IV replacement ordered 1.8 on am labs and will ordered additional 1gm to keep closer to 2 (patient with strong family hx afib, none prior appreciated, follows with Dr Schmitz) HR MUCH improved with electrolyte replacement/pain control/mag replacement Monitor (4) Urinary retention: Plan: Urinary retention reported Bladder scan >1100cc this morning, prior issues but not this bad St cath/urine cx obtained Repeat still retention, Meeks order placed. Monitor cx Monitor cx/urine output --> NO GROWTH Maintain meeks for now while working on ambulation, plan for voiding trial tomorrow Patient wanting to wait until tomorrow to see if any issues with knee/bleeding and if not/no need for surgical intervention will plan to d/c voiding trial in am Does have hx kidney stones, congenital urinary issues, follows with urology -- consider consult while inpatient (5) CVA (cerebral vascular accident): Plan: Reported baseline LUE/LLE weakness following CVA in 2019 - 03/25/20 had RIGHT hemispheric CVA, received TPA/flown to [facility] and tx to [facility] following for rehab. Has loop recorder in place He had a stroke early in march followed by an arterial embolism, source unknown. no issues since being on asa/plavix, 30 day without afib, did have brief episodes of atrial tachycardia STRONG family hx afib, denied any palpitations to me, but as above, checking CTA to r/o underlying PE --> NEGATIVE No increased weakness/new focal deficit on exam 04/12, 04/13 ASA/Plavix resumed as above 04/12 Neuro exam stable, at baseline uses walker for ambulation and doing such (6) Obstructive sleep apnea: Plan: continue CPAP -- has home CPAP (7) Hyperlipidemia: Plan: continue statin (8) Hypomagnesemia: Plan: replace/resolved on repeat keep ~2 to prevent any afib post-operatively Plan Continued inpatient stay Abx switched to Ancef 2gm IV , continue x 6 weeks Will need PICC line, will obtain closer to d/c PT/OT consulted, likely need for rehab at d/c Admission and Anticipated Discharge Date Admission Date: April 10, 2022 Subjective Patient evaluated this morning. Doing well, did have hemovac drain pulled this morning. Did have some bleeding after drain pulled, will need to monitor. States orthopedic pulled with both hands to get his hemovac drain out and stated he was hopeful he wouldn't have to take him back to the OR. Moved his bowels this morning. Edema to his RLE about the same after surgery the first time. No calf edema Chronic issues with fasciculations to LLE/LUE after stroke, depending on how he has his legs/arm. States did get up with therapy and walked to the kitchen/ice machine and back. Did feel a little tight after, maybe over did it. Pain controlled with ordered medications. Discussed OR cultures and ID consultation for today and likely adjustments to his antibiotic regimen. at PT currently but to visit later today. Meeks draining clearer yellow urine, has been pushing oral fluids. No need for additional IV at this time. Review of Systems Review of Systems: All systems reviewed & are unremarkable except as noted in HPI & below Physical Exam Physical Exam: General: WD/WN male sitting up in bed, comfortable appearing, joking with me about events of removal of hemovac this morning, NAD HEENT: head normocephalic, atraumatic, mm much improved, trachea midline without deviation Resp: CTAB, no w/c, on room air 96% CV: rate 70bpm, regular, no m/r, pulses palpable, NVI GI: +BS, soft, nontender : meeks draining more clearer yellow urine MSK/Neuro: baseline LUE/LLE weakness from prior CVA (no worse per patient), follows commands, no facial droop, alert/oriented x 3 RLE knee with gibran wrap dressing in place, removed, iban intact, no drainage scant bloody drainage appreciated from prior hemovac site, decreased edema compared to days prior, much less erythema, no continued surrounding erythema, slight edema to RLE but calves non-tender and pulses palpable, NVI tremor LLE for several seconds Skin: see above, otherwise warm/dry Results & Data Results & Data ([facility]) Vital Signs (Past 12 Hours) Vital Signs Temp Pulse Resp BP Pulse Ox O2 Del Method 04/14/22 07:53 36.8 C 66 16 128/72 97 Room Air 04/13/22 21:51 36.8 C 81 18 118/66 93 Room Air Laboratory Results 04/14/22 04/14/22 04/14/22 Range/Units 09:34 09:34 09:34 WBC 7.17 (4.8-10.8) K/ul RBC 3.07 L (4.63-6.08) M/uL Hgb 9.3 L (14.0-18.0) g/dl Hct 28.1 L (40.1-51.0) % MCV 91.5 (80.0-100.0) fL MCH 30.3 (25.0-34.0) pg MCHC 33.1 (32.0-36.0) g/dL RDW Std Deviation 44.8 (36.4-46.3) fL RDW Coeff of Reba 13.4 (11.5-14.5) % Plt Count 329 (130-400) K/uL MPV 9.6 (9.4-12.4) fL Sodium 139 (136-145) mmol/L Potassium 3.6 (3.5-5.1) mmol/L Chloride 108 H (98-107) mmol/L Carbon Dioxide 23 (21-32) mmol/L Anion Gap 8 (3-11) BUN 15 (6-23) mg/dl Creatinine 0.84 (0.6-1.4) mg/dl Est Cr Clr Drug Dosing 101.9 ml/min Est GFR ( Amer) 106.5 ml/min Est GFR (Non-Af Amer) 91.9 ml/min BUN/Creatinine Ratio 17.9 (10-20) Glucose 135 H (70-99(Fasting)) mg/dl Calcium 8.4 L (8.5-10.1) mg/dl Magnesium 1.8 (1.7-2.4) mg/dl Random Vancomycin 17.1 (10-20) mcg/ml Blood Type Antibody Screen Crossmatch 04/13/22 04/13/22 Range/Units 06:41 06:41 WBC (4.8-10.8) K/ul RBC (4.63-6.08) M/uL Hgb (14.0-18.0) g/dl Hct (40.1-51.0) % MCV (80.0-100.0) fL MCH (25.0-34.0) pg MCHC (32.0-36.0) g/dL RDW Std Deviation (36.4-46.3) fL RDW Coeff of Reba (11.5-14.5) % Plt Count (130-400) K/uL MPV (9.4-12.4) fL Sodium 136 (136-145) mmol/L Potassium (3.5-5.1) mmol/L Chloride (98-107) mmol/L Carbon Dioxide (21-32) mmol/L Anion Gap 5.6 (3-11) BUN (6-23) mg/dl Creatinine (0.6-1.4) mg/dl Est Cr Clr Drug Dosing ml/min Est GFR ( Amer) ml/min Est GFR (Non-Af Amer) ml/min BUN/Creatinine Ratio (10-20) Glucose (70-99(Fasting)) mg/dl Calcium (8.5-10.1) mg/dl Magnesium (1.7-2.4) mg/dl Random Vancomycin (10-20) mcg/ml Blood Type O Positive Antibody Screen NEGATIVE Crossmatch See Detail PG Care Time/CCT Total # of Minutes Spent Total Time Spent with Patient: Total time spent is greater than 50% in coordination of care (as documented) at patient's floor/unit and/or counseling patient: Coding Level of Care Code 41028 Subseq Hosp Care Lvl 3 Diagnoses Infection of total knee replacement T84.59XA; Z96.659 Cellulitis of knee, right L03.115 Sinus tachycardia R00.0 Urinary retention R33.9 CVA (cerebral vascular accident) I63.9 Obstructive sleep apnea G47.33 Hyperlipidemia E78.5 Hypomagnesemia E83.42
[2022-04-14] MEDS: PANTOprazole 40 MG TAB PO SCH (09:07)
[2022-04-14] MEDS: FERROUS SULFATE 325 MG TAB PO SCH (09:07)
[2022-04-14] MEDS: buPROPion XL 150 MG TABCR PO SCH (09:07)
[2022-04-14] MEDS: MULTIVITAMIN TAB PO SCH (09:08)
[2022-04-14] MEDS: DOCUSATE SODIUM 100 MG CAP PO SCH ×2 (09:08→21:28)
[2022-04-14] MEDS: VENLAFAXINE HCL XR 150 MG CAPXR PO SCH (09:08)
[2022-04-14] MEDS: CLOPIDOGREL BISULFATE 75 MG TAB PO SCH (09:08)
[2022-04-14] MEDS: ASPIRIN 81 MG ECTAB PO SCH (09:09)
[2022-04-14 10:01] LABS: Hematocrit (blood only) 28.1 % (40.1-51.0); Hemoglobin 9.3 g/dl (14.0-18.0); Mean Corpuscular Hemoglobin 30.3 pg (25.0-34.0); Mean Corpuscular Hgb Conc 33.1 g/dL (32.0-36.0); Mean Corpuscular Volume 91.5 fL (80.0-100.0); Mean Platelet Volume 9.6 fL (9.4-12.4); Platelet Count 329 K/uL (130-400); RDW Coefficient of Variation 13.4 % (11.5-14.5); RDW Standard Deviation 44.8 fL (36.4-46.3); Red Blood Count 3.07 M/uL (4.63-6.08); White Blood Count 7.17 K/ul (4.8-10.8)
[2022-04-14 10:32] LABS: BUN Creatinine Ratio 17.9 (10-20); Calcium 8.4 mg/dl (8.5-10.1); Creatinine Clr Calc Pharmacy 101.9 ml/min; Est GFR (African American) 106.5 ml/min; Est GFR (Non-African American) 91.9 ml/min; Magnesium 1.8 mg/dl (1.7-2.4); Potassium 3.6 mmol/L (3.5-5.1)
[2022-04-14] MEDS: ceFAZolin 2000MG 2,000 MG/15 ML SYR IV SCH ×2 (13:28→21:28)
[2022-04-14] MEDS: oxyCODONE/ACETAMINOPHEN 5mg/325mg TAB PO PRN ×2 (13:38→22:27)
--- NOTE | 2022-04-14 13:43 | Infectious Disease Consult ---
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 Infectious diseases consulted for R TKA infection s/p I+D and polyexchange on 04/12/22. Patients recently underwent R TKA 03/21/[address] Varela. No acute complications from this procedure and did well postoperative. He did not receive antibiotics prior to admission. On admission to [facility] on 04/10, vitals were stable and patient has been afebrile. Initial WBC 11.70, Hgb 9.6, plt 257, Cr 0.93. CXR negative for acute disease. 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 CTA negative for PE and pneumonia. 04/10 Blood cultures No Growth. The patient was taken to the OR with Dr Varela on 04/12/22 for R knee I+D and poly exchange. OR noted gross pus in the subcutaneous region. This tract underneath the quad and infected the deep knee prosthesis as well OR cultures taken and growing in both superficial and deep cultures MSSA (S: Bactrim , tetracycyline, Oxacillin, Clindamycin, Erythromycin, Vanco MARC:2). Discussion: Patient s/p I+D with polyexchange and MSSA growth. Blood cultures are negative. Recommend Cefazolin IV, this can be done either 2G IV TID or 6 Grams continuous based on his preference. Given there is retained hardware would recommend - rifampin 300mg BID to IV abx course six months for an infected knee. -then dc IV abx start PO anti-staphylococcal agent PLUS continued rifampin for 6 months -then stop rifampin and continue PO anti-staphylococcal agent for at least one year -First line choice for oral suppressive agent would be Cefadroxil 500 mg PO BID. Plan/Recommend: -Discontinue vancomycin, ceftriaxone -Start Cefazolin 2G IV TID (GFR>60) -Pharmacy guidance for evaluation of drug-drug interactions for Rifampin -He will need IV therapy x 6 weeks through 05/24/22, ok to place PICC line -He will need po Rifampin starting inpatient, continue for 6 weeks with IV and then continue for an additional 6 months as above -After IV therapy has completed, recommend he receive oral suppressive antibiotic therapy with cefadroxil as above -Given rifampin has been drug interactions and need for IV therapy and oral suppressive recommend he be seen by outpatient ID for follow up. Anahy Nunez MD [facility], [facility] Present on Admission?: Yes (2) Cellulitis of knee, right: Present on Admission?: Yes (3) Urinary retention: Present on Admission?: Yes (4) Left-sided weakness: Present on Admission?: Yes Consultation Information Consultation was provided via telemedicine using two-way real-time interactive telecommunication between the patient and the telemedicine provider. For the duration of the visit, the provider was performing the assessment from a different facility than the patient. This includesuse of bluetooth stethoscope forauscultationperformed by the telepresenter that the telemedicine provider can hear if described in the physical exam. National Service Officer contact information: Please call [facility] Call Center . (Phone Number For Physician Use Only) After establishing a telemedicine visit, patient was: Patient was verified with two unique identifiers, Patient/authorized rep acknowledged consent and understanding and Gave permission to continue telehealth session Time Spent w Inpatient: 55 minutes History of Present Illness Reason for Consultation: Prosthetic knee infection Requesting Physician: Dr. 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 Infectious diseases consulted for R TKA infection. Patients recently underwent R TKA 03/21/[address] Varela. No acute complications from this procedure and did well postoperative. 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 He did not receive antibiotics prior to admission. On admission to [facility] on 04/10, vitals were stable and patient has been afebrile. Initial WBC 11.70, Hgb 9.6, plt 257, Cr 0.93. CXR negative for acute disease. 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 CTA negative for PE and pneumonia. 04/10 Blood cultures No Growth. The patient was taken to the OR with Dr Varela on 04/12/22 for R knee I+D and poly exchange. OR noted gross pus in the subcutaneous region. This tract underneath the quad and infected the deep knee prosthesis as well OR cultures taken and growing in both superficial and deep cultures MSSA (S: Bactrim , tetracycyline, Oxacillin, Clindamycin, Erythromycin, Vanco MARC:2). Patient was on Ceftriaxone and Vancomycin. ID was consulted today regarding antibiotics. On my interview, patient is feeling much better. He is ambulating. ROS is negative for F/C/N/V. Denies diarrhea/abdominal pain. R knee pain improved. Allergies Allergy/AdvReac Type Severity Reaction Status Date / Time escitalopram [From Lexapro] AdvReac Mild Drowsy Verified 04/10/22 22:59 paroxetine [From Paxil] AdvReac Mild Drowsy Verified 04/10/22 22:59 Home Medications Medication Instructions Recorded Confirmed Type ascorbic acid (vitamin C) 500 mg 500 mg PO QAM 03/23/20 04/10/22 History tablet (Vitamin C) vitamin B complex 1 cap PO QAM 04/09/20 04/10/22 History miscellaneous medical supply #1 ea 11/02/20 02/04/22 Rx acetaminophen 500 mg tablet 1,000 mg PO BID Pain 10/14/21 04/10/22 History (Tylenol Extra Strength) atorvastatin 40 mg tablet 40 mg PO HS #90 tabs 01/28/22 04/10/22 Rx celecoxib 200 mg capsule (Celebrex) 200 mg PO QAM 02/04/22 04/10/22 History cholecalciferol (vitamin D3) 125 125 mcg PO QAM 02/04/22 04/10/22 History mcg (5,000 unit) tablet (Vitamin D3) clopidogrel 75 mg tablet (Plavix) 75 mg PO QAM 02/04/22 04/10/22 History pantoprazole 40 mg tablet,delayed 40 mg PO QAM 02/04/22 04/10/22 History release (Protonix) tamsulosin 0.4 mg capsule (Flomax) 0.4 mg PO HS 02/04/22 04/10/22 History venlafaxine 150 mg 150 mg PO QAM 02/04/22 04/10/22 History capsule,extended release 24 hr (Effexor XR) bupropion HCl 150 mg 24 hr tablet, 150 mg PO QAM 03/21/22 04/10/22 History extended release (Wellbutrin XL) oxycodone-acetaminophen 5 mg-325 1 tab PO Q6H PRN pain #30 tabs 03/21/22 04/10/22 Rx mg tablet aspirin 81 mg tablet,delayed 81 mg PO DAILY 04/10/22 04/10/22 History release diclofenac sodium 1 % topical gel 2 g topical QID PRN Pain 04/10/22 04/10/22 History Patient History Medical History Anxiety Arterial embolism RLE 03/2020 after CVA, unknown etiology CVA (cerebral vascular accident) 03/07/20- R hemispheric, received TPA, flown to [facility], transferred to for rehab - Follows Dr. 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 2013 - Tubular Adenoma. History of cystoscopy cystoscopy, stent placement: 03/24/20: MAC sedation at [facility] History of loop recorder insert by Dr. Schmitz - 07/2020 - 3 months post CVA - no current issues - follows Dr. Schmitz yearly History of repair of rotator cuff RT History of surgery on right wrist proximinal row History of tooth extraction S/P foot surgery right-05/06/2019 left-09/02/2021 Family History Son Type 1 diabetes Mother Breast cancer Dyslipidemia Father Myocardial infarction Stroke Ischemic dilated cardiomyopathy Brother Hypertension Denies family history of Ovarian cancer Prostate cancer Colorectal cancer Social History Smoking Status: Former smoker Tobacco Type: Cigarettes Years Smoked: 2; Cigarettes Per Day: 1/2 pack/day; Second Hand Exposure: No; Hx Alcohol Use: Yes Alcohol type: beer Hx Substance Use: No Preferred Language: Cameroonian Communication Ability: Effective Visual Impairment: No Limitations Hearing Ability: Normal 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 Beliefs That Will Affect Care: None marital status: Current Living Situation: Spouse Current Living Situation Comment: [employer] current occupational status: retired How many Children do You have: 1 Feels Safe at Home: Yes Diet Comment: regular caffeine: Yes (coffee 1 per day soda 1 per day.) during the past year weight has: remained stable Dental Care, Regularly: Yes Physical Activity Frequency: Other Seatbelt Use: always Sunscreen Use: No Assistive Devices: Cane and Walker Review of System Constitutional Reports as per HPI; Denies chills, Denies excessive sweating, Denies night sweats, Denies body ache(s), Denies fatigue and Denies malaise Cardiovascular Cardio: Reports as per HPI; Denies chest pain, Denies chest pain at rest and Denies lower extremity swelling Gastrointestinal GI: Reports as per HPI, Denies abdominal pain, Denies bloating, Denies cramping, Denies change in bowel habits, Denies loose stools and Denies fecal incontinence Genitourinary Denies oliguria, Denies difficulty urinating, Denies dysuria, Denies urinary frequency, Denies urinary hesitancy, Denies urinary incontinence and Denies urinary urgency Endocrine Denies excessive sweating and Denies fatigue Physical Exam Constitutional: WD/WN, vitals as above well developed and well nourished; no acute distress Chest (Breasts): normal inspection/palpation of breasts Chest: normal inspection of chest Gastrointestinal (Abdomen): normal bowel sounds, soft, nontender, no hepatosplenomegaly Inspection/Auscultation: abdomen normal to inspection Musculoskeletal: Knee: + knee abnormal to inspection, + effusion and + skin erythema R knee with iban Psychiatric: A+Ox3, euthymic affect Orientation: alert and oriented to place Apperance: appropriately dressed Results & Data ([facility]) Vital Signs (Past 12 Hours) Vital Signs Temp Pulse Resp BP Pulse Ox O2 Del Method 04/14/22 07:53 36.8 C 66 16 128/72 97 Room Air Laboratory Results Laboratory Tests 04/12/22 12:00 WBC 11.70 H Plt Count 256 Microbiology 04/12/22 08:08 Knee,Right Gram Stain - Final 04/12/22 08:08 Knee Gram Stain - Final 04/12/22 08:08 Knee,Right Aerobic and Anaerobic Culture - Preliminary Staphylococcus aureus 04/12/22 08:08 Knee Aerobic and Anaerobic Culture - Preliminary Staphylococcus aureus Org 1 = Staphylococcus aureus Collected: 04/12/22 08:08 Source: Knee,Right ANTIBIOTIC ORG 1 Clindamycin S Daptomycin S Erythromycin S Oxacillin S Tetracycline S Trimethoprim/Sulfamethoxazole S Vancomycin S Microbiology 04/10/22 19:40 Blood Aerobic Blood Culture - Preliminary 04/10/22 19:40 Blood Anaerobic Blood Culture - Preliminary No growth in Aerobic bottle after 48 hours. No growth in Anaerobic bottle after 48 hours. 04/10/22 19:40 Blood Aerobic Blood Culture - Preliminary 04/10/22 19:40 Blood Anaerobic Blood Culture - Preliminary No growth in Aerobic bottle after 48 hours. No growth in Anaerobic bottle after 48 hours.
[2022-04-14] MEDS ORDERED: MAGNESIUM SULFATE / D5W 1 GM/100 ML BAG IV ONE (14:00)
[2022-04-14] MEDS: rifAMPin 300 MG CAPSULE PO SCH (21:26)
[2022-04-14] MEDS: TAMSULOSIN HCL 0.4 MG CAP PO SCH (21:26)
[2022-04-14] MEDS: ATORVASTATIN 40 MG TAB PO SCH (21:28)
[2022-04-14] MEDS: SENNA 8.6 MG TAB PO SCH (21:28)
[2022-04-15] MEDS: ceFAZolin 2000MG 2,000 MG/15 ML SYR IV SCH ×3 (06:03→21:17)
[2022-04-15 06:43] LABS: Basophils # (auto) 0.03 K/uL (0-0.2); Basophils % (auto) 0.5 %; Eosinophils # (auto) 0.19 K/uL (0-0.50); Eosinophils % (auto) 3.4 %; Hematocrit (blood only) 27.5 % (40.1-51.0); Hemoglobin 9.1 g/dl (14.0-18.0); Immature Granulocytes # (auto) 0.06 K/uL (0.00-0.02); Immature Granulocytes % (auto) 1.1 %; Lymphocytes # (auto) 1.22 K/uL (1.2-3.4); Mean Corpuscular Hemoglobin 29.5 pg (25.0-34.0); Mean Corpuscular Hgb Conc 33.1 g/dL (32.0-36.0); Mean Corpuscular Volume 89.3 fL (80.0-100.0); Mean Platelet Volume 9.2 fL (9.4-12.4); Monocytes # (auto) 0.49 K/uL (0.24-0.82); Monocytes % (auto) 8.8 %; Neutrophils # (auto) 3.55 K/uL (1.4-6.5); Neutrophils % (auto) 64.2 %; Platelet Count 327 K/uL (130-400); RDW Coefficient of Variation 13.4 % (11.5-14.5); RDW Standard Deviation 43.8 fL (36.4-46.3); Red Blood Count 3.08 M/uL (4.63-6.08); White Blood Count 5.54 K/ul (4.8-10.8)
[2022-04-15 07:01] LABS: BUN Creatinine Ratio 20.7 (10-20); Calcium 8.3 mg/dl (8.5-10.1); Creatinine Clr Calc Pharmacy 104.4 ml/min; Est GFR (African American) 107.6 ml/min; Est GFR (Non-African American) 92.8 ml/min; Magnesium 1.9 mg/dl (1.7-2.4); Potassium 3.5 mmol/L (3.5-5.1)
--- NOTE | 2022-04-15 07:06 | Orthopedic Progress Note ---
Date of Service April 15, 2022 Assessment & Plan (1) Infection of total knee replacement: Cultures and sensitivities are back. He has grown out staph aureus from the right knee. He was seen by infectious disease yesterday. I agree with the recommendations of Ancef IV and rifampin to be started as an inpatient. He is orthopedically stable for for discharge when medically ready. He will follow-up with orthopedics in 2 weeks for staple removal. Full orthopedic discharge instructions were placed in the discharge summary. Mariana Kaye was seen and examined at bedside this morning. Overall he is doing fairly well. He is little bit of drainage from his medial Hemovac site. He has much less pressure with his knee. Overall he is feeling better. He was seen by infectious disease yesterday. He has no new complaints.. Review of Systems All systems reviewed & are unremarkable except as noted in HPI & below. Physical Exam On physical examination of the right knee, the incision looks good. There is no redness or effusion. He has range of motion from 0 to 95 degrees pretty easily. He has little bit of drainage from the medial Hemovac site.. Results & Data Results & Data Laboratory Results . Diagnostic Findings . PG Care Time/CCT Total # of Minutes Spent Total Time Spent with Patient: Total time spent is greater than 50% in coordination of care (as documented) at patient's floor/unit and/or counseling patient: Coding Level of Care Code 33273 Post Operative Follow-Up Diagnoses Infection of total knee replacement T84.59XA; Z96.659
--- NOTE | 2022-04-15 08:15 | Hospitalist Progress Note ---
Date of Service April 15, 2022 Assessment & Plan (1) Infection of total knee replacement: Plan: 67 y/o M Hx HARRIET, depression, HLD, cryptogenic CVA, osteoarthritis. The pt underwent a R TKA 03/21. His iban were removed one week prior. He was on track with rehab and did not suffer any immediate post-op complications. Had been on ASA/Plavix for DVT prophylaxis post-operatively Over the past 1-2 days, he has developed pain, redness and swelling of the R knee surrounding the wound site. Patient reported he had had purulent drainage from the distal aspect of his incision prior to admission * Venous Doppler with NO acute DVT within RLE. --> Small amount of chronic nonocclusive thrombus within med right superficial femoral vein. Complex popliteal cyst. * CTA negative for PE as checked for sinus tachy on admit --> Did get dose hepar in SQ evening 04/11 while holding ASA/Plavix (Hx cryptogenic CVA in Mar 2020 s/p TPN and flown to [facility], residual left sided weakness. Had hypercoagable workup) Orthopedics consulted POD #3 S/P Irrigation and Debridement Right Knee with Poly Exchange (Right) - Mickey Varela, DO on 04/12. EBL 20cc. Of note, per OP report, DEEP infection WBC 13.7k --> 5.5k. BCx NGTD. Last temp 37.7C on 04/11 Pain control/antiemetics/bowel regimen last BM 04/15, monitor while on PO iron Hgb improved with PO supplementation, increased to BID given iron panel. Does get routine c-scope for polyps, no fmx colon ca or bleeding reported and has appt next spring Cx staph aureus ID consulted --> transitioned from Vanco/Ceftriaxone to Ancef 2gm IV Q8H. Added rifampin 300mg BID Will need continued monitoring at d/c. CM having Dr Galan office review chart and call patient with follow up given hardware Continue IV Ancef 2gm IV q8 abx 6 weeks with PO Rifampin and then continue Cefaroxil 500mg PO BID for 6 months, then stop Rifmapin and continue the anti- stpahylococcal agent for at least one year. PICC line consent obtained, risks discussed with patient at direction supervising provider. Will provide CM rx for such PT/OT consulted --> rehab. Denied peer-peer for [facility], Dr Plascencia said would approve SNF. Cm following. Possible bed at [facility] tomorrow, applied for auth (2) Cellulitis of knee, right: Plan: improved/resolved (3) Sinus tachycardia: Plan: on admit, HR 135 CTA ordered given recent surgery, NEGATIVE for PE ordered as Venous Doppler non acute. Would rec f/u coag clinic next week to see about recs from Dr Parker in patient with cryptogenic stroke 2 years ago No afib on EKG, has holter monitor which not detected arrhythmias. Mag checked, 1.5 --> IV replacement ordered Keep closer to 2 given strong fam hx afib/prior CVA HR MUCH improved with electrolyte replacement/pain control/mag replacement Follows with Dr Schmitz, per note, patient had increased HR/SOB/lightheadedness 04/02, ?related to infection w/ his knee at that time. CTA negative for PE as obtained give sinus tach on admit No new murmur, but note does suggest having repeat echo for LV dysfunction -- arrange f/u at d/c (4) Urinary retention: Plan: Urinary retention reported Bladder scan >1100cc this morning, prior issues but not this bad St cath/urine cx obtained Repeat still retention, Meeks order placed. Monitor cx Monitor cx/urine output --> NO GROWTH Maintain meeks for now while working on ambulation, will d/c this evening given improvement in ambulation and monitor output Does have hx kidney stones, congenital urinary issues, follows with urology -- consider consult while inpatient if issues after meeks removed (5) CVA (cerebral vascular accident): Plan: Reported baseline LUE/LLE weakness following CVA in 2019 - 03/25/20 had RIGHT hemispheric CVA, received TPA/flown to [facility] and tx to [facility] following for rehab. Has loop recorder in place He had a stroke early in march followed by an arterial embolism, source unknown. no issues since being on asa/plavix, 30 day without afib, did have brief episodes of atrial tachycardia STRONG family hx afib, denied any palpitations to me, but as above, checking CTA to r/o underlying PE --> NEGATIVE No increased weakness/new focal deficit on exam 04/12-04/15 ASA/Plavix resumed as above 04/12 (discussed with Dr Varela about bid aspirin, stated new trials w/ once daily just as good, will continue DAPT regardless but monitor closely for any weakness/DVT) Neuro exam stable, at baseline uses walker/cane for ambulation and doing such (6) Obstructive sleep apnea: Plan: continue CPAP -- has home CPAP (7) Hyperlipidemia: Plan: continue statin (8) Hypomagnesemia: Plan: replace/resolved on repeat keep ~2 to prevent any afib post-operatively Plan continued inpatient stay on IV abx PICC line consent obtained today CM working on arranging SNF at [place], possibly [facility] tomorrow. Patient updated. Admission and Anticipated Discharge Date Admission Date: April 10, 2022 Subjective evaluated this morning doing well pain control ice pack on this morning, helping decreased edema adding rifampin, will need continued Had PICC line in past with with sepsis due to kidney stones. Scant drainage from Hemovac site when bent his knee this morning but much less swollen. CM contacted [place], insurance req peer-peer completed by 1300 --> spoke with Dr Plascencia, denied. Would approve SNF given patient to need correction abx and transition to SNF after rehab and has been ambulating about at baseline with walker. After denied acute inpatient rehab at [facility], discussed with CM and SNF referrals made. [facility] with possible bed tomorrow, working on auth (should not be problem given Dr Plascencia said would approve SNF). PICC Consent obtained, risks discussed. Placed on front of chart. Review of Systems Review of Systems: All systems reviewed & are unremarkable except as noted in HPI & below Physical Exam Physical Exam: General: WD/WN male sitting up in bed, comfortable appearing, NAD HEENT: head normocephalic, atraumatic, mm much improved, trachea midline without deviation Resp: CTAB, no w/c, on room air 95% CV: rate 70-90sbpm, regular, no m/r, pulses palpable, NVI GI: +BS, soft, nontender : meeks draining clearer yellow urine MSK/Neuro: baseline LUE/LLE weakness from prior CVA (no worse per patient), follows commands, no facial droop, alert/oriented x 3 RLE knee with gibran wrap dressing in place, less edema, iban intact, no expressable drainage no further surrounding erythema liberty hose in placed, pulses palpable, NVI Skin: see above, otherwise warm/dry Results & Data Results & Data ([facility]) Vital Signs (Past 12 Hours) Vital Signs Temp Pulse Resp BP Pulse Ox O2 Del Method 04/15/22 07:57 36.8 C 91 H 16 142/83 H 95 Room Air 04/14/22 21:44 36.7 C 76 14 138/84 94 Room Air Laboratory Results 04/15/22 04/15/22 Range/Units 06:18 06:18 WBC 5.54 (4.8-10.8) K/ul RBC 3.08 L (4.63-6.08) M/uL Hgb 9.1 L (14.0-18.0) g/dl Hct 27.5 L (40.1-51.0) % MCV 89.3 (80.0-100.0) fL MCH 29.5 (25.0-34.0) pg MCHC 33.1 (32.0-36.0) g/dL RDW Std Deviation 43.8 (36.4-46.3) fL RDW Coeff of Reba 13.4 (11.5-14.5) % Plt Count 327 (130-400) K/uL MPV 9.2 L (9.4-12.4) fL Immature Gran % (Auto) 1.1 % Neut % (Auto) 64.2 % Lymph % (Auto) 22.0 % [place] % (Auto) 8.8 % Eos % (Auto) 3.4 % Baso % (Auto) 0.5 % Neut # (Auto) 3.55 (1.4-6.5) K/uL Lymph # (Auto) 1.22 (1.2-3.4) K/uL [place] # (Auto) 0.49 (0.24-0.82) K/uL Eos # (Auto) 0.19 (0-0.50) K/uL Baso # (Auto) 0.03 (0-0.2) K/uL Immature Gran # (Auto) 0.06 H (0.00-0.02) K/uL Sodium 140 (136-145) mmol/L Potassium 3.5 (3.5-5.1) mmol/L Chloride 108 H (98-107) mmol/L Carbon Dioxide 25 (21-32) mmol/L Anion Gap 7 (3-11) BUN 17 (6-23) mg/dl Creatinine 0.82 (0.6-1.4) mg/dl Est Cr Clr Drug Dosing 104.4 ml/min Est GFR ( Amer) 107.6 ml/min Est GFR (Non-Af Amer) 92.8 ml/min BUN/Creatinine Ratio 20.7 H (10-20) Glucose 88 (70-99(Fasting)) mg/dl Calcium 8.3 L (8.5-10.1) mg/dl Magnesium 1.9 (1.7-2.4) mg/dl PG Care Time/CCT Total # of Minutes Spent Total Time Spent with Patient: Total time spent is greater than 50% in coordination of care (as documented) at patient's floor/unit and/or counseling patient: Coding Level of Care Code 04469 Subseq Hosp Care Lvl 3 Diagnoses Infection of total knee replacement T84.59XA; Z96.659 Cellulitis of knee, right L03.115 Sinus tachycardia R00.0 Urinary retention R33.9 CVA (cerebral vascular accident) I63.9 Obstructive sleep apnea G47.33 Hyperlipidemia E78.5 Hypomagnesemia E83.42
[2022-04-15] MEDS ORDERED: POTASSIUM CHLORIDE CRTAB 20 MEQ TABCR PO STA (08:22)
[2022-04-15] MEDS ORDERED: MAGNESIUM SULFATE / D5W 1 GM/100 ML BAG IV ONE (08:30)
[2022-04-15] MEDS: rifAMPin 300 MG CAPSULE PO SCH ×2 (09:06→21:12)
[2022-04-15] MEDS: VENLAFAXINE HCL XR 150 MG CAPXR PO SCH (09:07)
[2022-04-15] MEDS: PANTOprazole 40 MG TAB PO SCH (09:07)
[2022-04-15] MEDS: buPROPion XL 150 MG TABCR PO SCH (09:07)
[2022-04-15] MEDS: CLOPIDOGREL BISULFATE 75 MG TAB PO SCH (09:07)
[2022-04-15] MEDS: ASPIRIN 81 MG ECTAB PO SCH (09:08)
[2022-04-15] MEDS: DOCUSATE SODIUM 100 MG CAP PO SCH ×2 (09:08→21:13)
[2022-04-15] MEDS: MULTIVITAMIN TAB PO SCH (09:09)
--- NOTE | 2022-04-15 13:26 | Infectious Disease Progress Nt ---
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 Infectious diseases consulted for R TKA infection s/p I+D and polyexchange on 04/12/22. OR Cx MSSA. Patients recently underwent R TKA 03/21/[address] Varela. No acute complications from this procedure and did well postoperative. He did not receive antibiotics prior to admission. On admission to [facility] on 04/10, vitals were stable and patient has been afebrile. Initial WBC 11.70, Hgb 9.6, plt 257, Cr 0.93. CXR negative for acute disease. 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 CTA negative for PE and pneumonia. 04/10 Blood cultures No Growth. The patient was taken to the OR with Dr Varela on 04/12/22 for R knee I+D and poly exchange. OR noted gross pus in the subcutaneous region. This tract underneath the quad and infected the deep knee prosthesis as well OR cultures taken and growing in both superficial and deep cultures MSSA (S: Bactrim , tetracycyline, Oxacillin, Clindamycin, Erythromycin, Vanco MARC:2). I spoke with microbiology today and MSSA is also sensitive to Rifampin (they will update cultures) Discussion: Patient s/p I+D with polyexchange and MSSA growth. Blood cultures are negative. Recommend Cefazolin IV, this can be done either 2G IV TID or 6 Grams continuous based on his preference. Given there is retained hardware would recommend - rifampin 300mg BID to IV abx course six months for an infected knee. -then dc IV abx start PO anti-staphylococcal agent PLUS continued rifampin for 6 months -then stop rifampin and continue PO anti-staphylococcal agent for at least one year -First line choice for oral suppressive agent would be Cefadroxil 500 mg PO BID. Plan/Recommend: -Cefazolin 2G IV TID (GFR>60) -Pharmacy guidance for evaluation of drug-drug interactions for Rifampin -He will need IV therapy x 6 weeks through 05/24/22, ok to place PICC line -While on IV abx he will need CBC with diff, CMP weekly. ESR/CRP can be checked q2 weeks to monitor response. -He has started Rifampin starting inpatient, continue for 6 weeks with IV and then continue for an additional 6 months as above -After IV therapy has completed, recommend he receive oral suppressive antibiotic therapy with cefadroxil as above -Given rifampin has been drug interactions and need for IV therapy and oral suppressive recommend he be seen by outpatient ID for follow up. -I spoke with patient regarding AEs to Rifampin including hepatitis risk, drug i nteractions etc. -PICC line hygiene reviewed. Please call page with any questions. Anahy Nunez MD [facility], [facility] (2) Cellulitis of knee, right: (3) Urinary retention: (4) Left-sided weakness: Admission and Anticipated Discharge Date Admission Date: April 10, 2022 Subjective Subsequent visit was provided via telemedicine using two-way real-time interactive telecommunication between the patient and the telemedicine provider. For the duration of the visit, the provider was performing the assessment from a different facility than the patient. This includesuse of bluetooth stethoscope forauscultationperformed by the telepresenter that the telemedicine provider can hear if described in the physical exam. [employer] contact information: Please call [facility] Center [phone]. (Phone Number For Physician Use Only) After establishing a telemedicine visit, patient was: Patient was verified with two unique identifiers, Patient/authorized rep acknowledged consent and understanding and Gave permission to continue telehealth session Subsequent Time Spent w Inpatient: 15 minutes Patient is feeling well. He plans to be discharged home with antibiotics. He denies fevers, chills, nausea, emesis. Knee pain has improved. Physical Exam Constitutional: WD/WN, vitals as above Musculoskeletal: Knee incision swelling no drainage, no erythema Skin: no rashes, warm and dry Psychiatric: A+Ox3, euthymic affect Results & Data ([facility]) Vital Signs (Past 12 Hours) Vital Signs Temp Pulse Resp BP Pulse Ox O2 Del Method 04/15/22 07:57 36.8 C 91 H 16 142/83 H 95 Room Air Laboratory Results Microbiology 04/12/22 08:08 Knee,Right Gram Stain - Final 04/12/22 08:08 Knee Gram Stain - Final 04/12/22 08:08 Knee,Right Aerobic and Anaerobic Culture - Preliminary Staphylococcus aureus 04/12/22 08:08 Knee Aerobic and Anaerobic Culture - Preliminary Staphylococcus aureus Laboratory Tests 04/15/22 04/15/22 06:18 06:18 WBC 5.54 Hgb 9.1 L Creatinine 0.82 Spec: [id number] Collected: 04/10/22 Received: 04/10/[address]: CHUCK,ED Copy To: Patrice Mujica D.O. Source: Blood OV Order: Ordered: Blood Culture Comments: same time. Procedure Result Verified Site Blood Culture Aerobic Preliminary 04/12/22 No growth in Aerobic bottle after 48 hours. Blood Culture Anaerobic Preliminary 04/12/22 No growth in Anaerobic bottle after 48 hours. Source: Knee,Right OV Order: Ordered: Aer/Stephania Cult/Sm Comments: Comment 1. Superficial Knee, Right Procedure Result Verified Site Gram Stain Final 04/12/22 Gram Stain Result Rare WBCs Seen No Organisms Seen Aero/Stephania Cult Preliminary 04/15/22 Organism 1 Staphylococcus aureus Quantity Few Sens Sensitivities to Follow No Anaerobes Isolated No Anaerobes Isolated S aureus RX M.I.C. --- --------- Clindamycin S <=0.5 Daptomycin S <=0.5 Erythromycin S <=0.5 Oxacillin S 1 Tetracycline S <=4 Trimeth/Sulfa S <=0.5/9.5 Vancomycin S 2
[2022-04-15] MEDS: FERROUS SULFATE 325 MG TAB PO SCH (16:28)
[2022-04-15] MEDS: ATORVASTATIN 40 MG TAB PO SCH (21:11)
[2022-04-15] MEDS: SENNA 8.6 MG TAB PO SCH (21:12)
[2022-04-15] MEDS: TAMSULOSIN HCL 0.4 MG CAP PO SCH (21:12)
--- NOTE | 2022-04-16 06:37 | Orthopedic Progress Note ---
Date of Service April 16, 2022 Assessment & Plan (1) Infection of total knee replacement: Final cultures and sensitivities are back. Infectious disease has seen him and recommended IV Ancef and rifampin. He also has follow-up appointments with infectious disease scheduled. He already has a PICC line placed. He is orthopedically stable for discharge later today if medically ready. Full orthopedic discharge instructions were placed in the discharge summary. Mariana Melara was seen and examined at bedside this morning. Overall is doing well. He says his knee is feeling much better. He had his PICC line placed yesterday. He had his infectious disease consult as well. He has no new complaints.. Review of Systems All systems reviewed & are unremarkable except as noted in HPI & below. Physical Exam On physical examination of the right knee, the dressing is now clean and dry. His leg is out full extension. He was neurovascular intact.. Results & Data Results & Data Laboratory Results . Diagnostic Findings . PG Care Time/CCT Total # of Minutes Spent Total Time Spent with Patient: Total time spent is greater than 50% in coordination of care (as documented) at patient's floor/unit and/or counseling patient: Coding Level of Care Code 19387 Post Operative Follow-Up Diagnoses Infection of total knee replacement T84.59XA; Z96.659
[2022-04-16] MEDS: ceFAZolin 2000MG 2,000 MG/15 ML SYR IV SCH ×2 (06:40→15:00)
[2022-04-16] MEDS: FERROUS SULFATE 325 MG TAB PO SCH (08:07)
[2022-04-16] MEDS: MULTIVITAMIN TAB PO SCH (08:07)
[2022-04-16] MEDS: ASPIRIN 81 MG ECTAB PO SCH (08:07)
[2022-04-16] MEDS: VENLAFAXINE HCL XR 150 MG CAPXR PO SCH (08:07)
[2022-04-16] MEDS: rifAMPin 300 MG CAPSULE PO SCH (08:08)
[2022-04-16] MEDS: buPROPion XL 150 MG TABCR PO SCH (08:08)
[2022-04-16] MEDS: DOCUSATE SODIUM 100 MG CAP PO SCH (08:09)
[2022-04-16] MEDS: CLOPIDOGREL BISULFATE 75 MG TAB PO SCH (08:09)
[2022-04-16] MEDS: PANTOprazole 40 MG TAB PO SCH (08:09)
[2022-04-16 08:29] LABS: BUN Creatinine Ratio 15.3 (10-20); Calcium 8.9 mg/dl (8.5-10.1); Creatinine Clr Calc Pharmacy 100.7 ml/min; Est GFR (Non-African American) 91.4 ml/min; Magnesium 2.1 mg/dl (1.7-2.4); Potassium 3.8 mmol/L (3.5-5.1)
[2022-04-16] MEDS ORDERED: MAGNESIUM OXIDE 400 MG TAB PO SCH (09:00)
[2022-04-16] MEDS: oxyCODONE/ACETAMINOPHEN 5mg/325mg TAB PO PRN (10:43)
--- NOTE | 2022-04-16 13:07 | Discharge Summary ---
Date of Service April 16, 2022 Admission HPI Per Admitting Provider 67 y/o M Hx HARRIET, depression, HLD, cryptogenic CVA, osteoarthritis. The pt underwent a R TKA 03/21. His iban were removed one week prior. He was on track with rehab and did not suffer any immediate post-op complications. Over the past 1-2 days, he has developed pain, redness and swelling of the R knee surrounding the wound site. A CXR demonstrated tissue swelling and subcutaneous emphysema consistent with post-op changes. No fluid collection or abscess is reported. labs were notable for elevated inflammatory markers and a mag of 1.5. He had a low-grade fever on arrival to the ER. Principal Diagnosis 1. R PJI s/p I&D and polyexchange 2. Urinary retention 3. Hypomagnesemia - replaced/resolved Discharge Exam GENERAL: 67 yo Well-developed, well-nourished WM. NAD. LUNGS: Clear to auscultation bilaterally. No W/R/R. CARDIOVASCULAR: Regular rate and rhythm. ABDOMEN: Soft, non-tender and non-distended. BS normoactive x 4 quad. EXTREMITIES: No edema. Non-tender. Peripheral pulses +2/4. No calf tenderness. Neg claudio's sign. NEUROLOGIC: A&O x3. Nonfocal PSYCHIATRIC: Cooperative. Appropriate mood and affect. SKIN: Warm, dry, intact. No rashes or lesions. Discharge Data Allergies Allergy/AdvReac Type Severity Reaction Status Date / Time escitalopram [From Lexapro] AdvReac Mild Drowsy Verified 04/10/22 22:59 paroxetine [From Paxil] AdvReac Mild Drowsy Verified 04/10/22 22:59 Consultations 04/10/22 22:32 ED Decision to Admit Stat 04/10/22 22:58 Consult Orthopedic Surgery Stat 04/14/22 08:00 Consult Infectious Diseases Routine Procedures Performed Operation Date: 04/12/22 07:35 Actual Procedures p Incision and Drainage of Right Knee, Irrigation and Debridement Right Knee with Poly Exchange (Right) - Mickey Varela DO Ordered Studies Chest X-Ray 04/10/22 19:29 SINGLE VIEW CHEST CLINICAL HISTORY: Sepsis. FINDINGS: An AP, portable, upright chest radiograph is compared to study dated 02/12/2022. An electronic device projects over the left lower chest. The cardiomediastinal silhouette is unremarkable. Emphysema and chronic interstitial thickening is similar to previous. Scarring/atelectasis is noted at the lung bases. No airspace consolidation or large pleural effusion is identified. No pneumothorax is seen. The skeletal structures are osteopenic. The bony thorax is grossly intact. IMPRESSION: Emphysematous change with no active disease in the chest. ACT 112: Negative or not required by law. Electronically signed by: Morteza Hickey M.D. 04/10/2022 8:11 PM Venous Doppler Study 04/10/22 20:48 RIGHT LOWER EXTREMITY VENOUS DOPPLER HISTORY: Right leg pain, r/o dvt COMPARISON STUDY: None. FINDINGS: Nonocclusive linear echogenic stranding within the mid right superficial femoral vein consistent with chronic thrombus. The remaining right lower extremity deep venous structures are patent. Complex popliteal cyst containing internal echoes and calcifications measuring 4.9 x 2.7 x 2.4 cm. IMPRESSION: 1. No acute DVT within the right lower extremity. 2. A small amount of chronic nonocclusive thrombus within the mid right superficial femoral vein. 3. Complex popliteal cyst. ACT 112: Negative or not required by law. Electronically signed by: Moses Ham M.D. 04/11/2022 7:08 AM Chest CTA 04/11/22 14:32 CT ANGIOGRAPHY OF THE CHEST, PULMONARY EMBOLUS PROTOCOL CLINICAL HISTORY: Shortness of breath. Evaluate for pulmonary embolus. COMPARISON STUDY: Chest radiograph April 10, 2022. TECHNIQUE: Following IV administration of 115 mL of Optiray, helical axial images of the chest were obtained utilizing the pulmonary embolus protocol. Maximal intensity projections and sagittal and coronal reformats were viewed on an independent 3D workstation. IV contrast was administered without complication. Automated exposure control was utilized for the study. A dose lowering technique was utilized adhering to the principles of ALARA. CT DOSE: 573.19 mGy.cm FINDINGS: No pulmonary emboli are identified although this exam is mildly compromised given suboptimal opacification. Size of the heart is normal. There is no thoracic aortic dissection. No enlarged thoracic lymph nodes are present. No pneumothorax or pleural effusion is present. The central airways are patent. Subpleural opacities favor atelectasis. There is no consolidation to suggest pneumonia. No acute fracture or suspicious lesion within the visualized bony thorax is noted. Old sternal fracture is present. IMPRESSION: 1. No pulmonary emboli identified although exam mildly compromised given suboptimal penetration. 2. No consolidation to suggest pneumonia. Subpleural opacities consistent with atelectasis. 3. No acute intrathoracic findings. ACT 112: Negative or not required by law. Electronically signed by: Dustin Echevarria M.D. 04/11/2022 5:01 PM 04/15/22 06:18 04/16/22 07:34 Hospital Course (1) Infection of total knee replacement: 67 y/o M Hx HARRIET, depression, HLD, cryptogenic CVA, osteoarthritis. The pt underwent a R TKA 03/21. His iban were removed one week prior. He was on track with rehab and did not suffer any immediate post-op complications. Had been on ASA/Plavix for DVT prophylaxis post-operatively. 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 - Patient reported he had had purulent drainage from the distal aspect of his incision prior to admission * Venous Doppler with NO acute DVT within RLE. --> Small amount of chronic nonocclusive thrombus within med right superficial femoral vein. Complex popliteal cyst. - Orthopedics consulted, POD #3 S/P I&D R Knee with Poly Exchange - BCx NGTD. Last temp 37.7C on 04/11 - Pain control/antiemetics/bowel regimen - Knee Cx MSSA - ID consulted --> transitioned from Vanco/Ceftriaxone to Ancef 2gm IV Q8H. Added rifampin 300mg BID d/t concern for biofilm with residual hardware * Will need continued monitoring at d/c. CM having Dr Galan office review chart and call patient with follow up given hardware * Continue IV Ancef 2gm IV q8 abx 6 weeks with PO Rifampin and then continue Cefaroxil 500mg PO BID for 6 months, then stop Rifmapin and continue the anti- stpahylococcal agent for at least one year. - PICC line ordered and in place - PT/OT consulted --> rehab. Denied peer-peer for [facility], approved for SNF. Bed at [place] (2) Sinus tachycardia: on admit, HR 135 CTA ordered given recent surgery, NEGATIVE for PE ordered as Venous Doppler non acute. Would rec f/u coag clinic next week to see about recs from Dr Parker in patient with cryptogenic stroke 2 years ago No afib on EKG, has holter monitor which not detected arrhythmias. Mag checked, 1.5 --> IV replacement ordered Keep closer to 2 given strong fam hx afib/prior CVA HR MUCH improved with electrolyte replacement/pain control/mag replacement Follows with Dr Schmitz, per note, patient had increased HR/SOB/lightheadedness 04/02, ?related to infection w/ his knee at that time. CTA negative for PE as obt ained give sinus tach on admit No new murmur, but note does suggest having repeat echo for LV dysfunction -- arrange f/u at d/c (3) Urinary retention: Urinary retention reported (does carry a prior h/o urinary retention) is on Flomax - Required ongoing meeks insertion following procedure - UA/urine cx, no growth - Meeks removed 04/15, required straight cath this AM for 700 cc - Bladder scanned this afternoon for >300 cc after trying to void but unable, replaced meeks - Will schedule o/p follow up with Dr. Jain (who he is established with) for 2 weeks (4) CVA (cerebral vascular accident): Reported baseline LUE/LLE weakness following CVA in 2019 - 03/25/20 had RIGHT hemispheric CVA, received TPA/flown to [facility] and tx to [facility] following for rehab. Has loop recorder in place He had a stroke early in March followed by an arterial embolism, source unknown. no issues since being on asa/plavix, 30 day without afib, did have brief episodes of atrial tachycardia STRONG family hx afib, denied any palpitations to me, but as above, checking CTA to r/o underlying PE --> NEGATIVE No increased weakness/new focal deficit on exam 04/12-04/15 ASA/Plavix resumed as above 04/12 (5) Obstructive sleep apnea: - continue CPAP -- has home CPAP (6) Hyperlipidemia: - continue statin (7) Hypomagnesemia: replace/resolved on repeat keep ~2 to prevent any afib post-operatively Plan Patient is medically and hemodynamically stable for discharge to SNF today for rehab and IV abx as outlined above. O/p follow up with specialists as indicated including cardiology, ID, orthopedics, and urology. Plan has been d/w Dr. Marcus Edge who has also seen and evaluated this patient and is in agreement with aforementioned. Total Time Total Time Spent Total Time Spent (In Minutes): >30 minutes Discharge Plan Discharge Items Patient Disposition: Transfer Half-Way Fac Reason For Visit: INFECTION OF R KNEE Discharge Diagnosis: infected right prosthetic knee Activity: Per Instructions section Non-emergency contact: Primary Care Provider, Surgeon, Specialist and Brief Writer Call non-emergency contact if: you have any medication questions, your symptoms worsen, your pain is not controlled and you have a fever Follow-up/Referrals: Sagar Louise MD [Primary Care Provider] - Jareth Schmitz MD [Physician] - 04/30/22 11:30 am (2 weeks) Cleve Jain MD [Physician] - 04/28/22 9:00 am Mickey Varela DO [Physician] - Brian Galan DO [Physician] - Diet: Heart Healthy Addtl Attending Provider Instructions: You will need to be continued on Ancef IV every 8 hours for six weeks based on discussion with infectious disease provider during inpatient stay based on culture data. You have also been started on rifampin 300mg by mouth twice daily. This can cause decreased effectiveness of your bupropion (Wellbutrin) and should monitor for any increased depression symptoms as this may need to be increased. You will have weekly labs while on antibiotics to ensure things remain stable. After 6 weeks of IV antibiotics, you will be transitioned to oral antibiotics in follow up with outpatient infectious disease, possibly with cefadroxil twice daily, for a year given still having hardware intact. You have been started on oral iron to help boost stores given bleeding from surgery. Please note this can darken your stool and contribute to constipation and you should continue a bowel regimen at discharge if any issues with such. You can also consider daily magnesium to keep your levels adequate and prevent any low levels that could cause elevated HR/shortness of breath. Sometimes Protonix can cause low levels and may be worth repeating these outpatient if any issues. You should also follow up with Dr Schmitz at discharge for follow up on heart monitor. Your heart rate has been much improved with replacement of the iron/magnesium. I discussed inpatient stay with Dr Nydegger and he recommended having follow up at discharge to monitor your status and see about repeating the limited ECHO, however symptoms at office could have been due to developing infection/low magnesium levels as well. Therapy has evaluated your and arrangements have been made for halfway at discharge. Please follow up with orthopedics as arranged, primary care, and infectious disease at discharge. Please return to the emergency department for any repeat fever/chills, chest pain, shortness of breath, increased bleeding, or for any other symptoms ozzie rning for you. It has been a pleasure being a part of the medical team providing for you while you have been in the hospital. Take care! Addtl Food Inspector Provider Instructions: Activity and Therapy Recommendations: * If you are using [facility] then therapy will be provided at your home until they feel you have accomplished all of your goals. * If you are using [facility] then Physical Therapy will be provided until they feel you are ready to start Outpatient Physical Therapy. * If you are not using home therapy then Outpatient Physical Therapy should start about 3-5 days from your day of surgery. Therapy will last about 6-10 weeks * It is important not to put a pillow under your knee when you are relaxing or sleeping. It is just as important to make sure you are getting your knee perfectly straight as it is to regain your knee bend. * You were shown a series of exercises in the hospital. Do these exercises three times each day including the exercises you were shown in physical therapy. * Get up and walk several times each day. For the first four weeks, try not to stand or walk for more than one hour at a time. If you do stand or walk for more than one hour, you will not hurt anything, but your leg will likely swe ll. * As you feel comfortable, you may change from the walker or crutches to a cane and then to independent walking. Medications: * Take the IV Ancef and the rifampin as prescribed by the infectious disease physician. * Continue your aspirin and Plavix for DVT prophylaxis. * Other medications may be prescribed for specific circumstances. If you have any questions, please call the office at . * Resume previous home medications unless otherwise instructed TEDs/Elastic Stockings: The white elastic stockings help limit swelling and prevent blood clots from forming in your legs.~ The more you wear them, the more they work. Wear them for six weeks. Dressing Care: The dressing can be changed after physical therapy on postop day #1. Daily dry dressing changes for a few days, especially if the incision is still draining some. If the incision is not draining then you may leave the iban open to air. If there is a little bit of drainage or if the iban are getting stuck on your clothing then cover the incision with a dry dressing. The iban will be removed at your 2 week follow-up appointment. Showering: You may shower 5 days from the day of surgery as long as the incision is no longer draining. You may shower with the iban exposed. Let soapy water run over the iban and pat them dry. Do not scrub or soak the incision. Things To Watch For: * Drainage from the incision site that occurs more than one week after your surgery. * Increased redness at the incision site. * Fever above 102 degrees Fahrenheit. * Unusual chest pain or shortness of breath. * Call [facility] at with any of the above problems Follow-Up Visit: Follow-up with Dr. Varela's PA (Mickey Burns) 2-3 weeks after your day of surgery. He will remove your iban and answer any questions. If you have any additional questions or concerns, Dr Varela is usually in the office at the same time and will be available An appointment was probably scheduled when you signed-up for surgery in the office. If you have any questions call Office Instructions: More detailed instructions as well as Frequently Asked Questions were provided in a folder by our office when you signed-up for surgery. Please review these instructions when you get home. If you have any further questions or concerns, please feel free to call the office at [phone] Pending Studies at Discharge: No Stand-Alone Forms: My [facility] Skilled Items Patient informed of condition?: Yes DNR: No Discharge Level of Care: Skilled Communicable Disease: No Discharge Prognosis: Stable Lines: None and PICC Urinary Catheter: Yes Medications and DC Order Prescriptions: New cefazolin 1 gram recon soln 2 g IV Q8H Qty: 25 0RF docusate sodium 100 mg Capsule 100 mg PO BID Qty: 60 0RF ferrous sulfate 325 mg (65 mg iron) Tablet,Delayed Release (Dr/Ec) 325 mg PO BIDM Qty: 60 0RF oxycodone-acetaminophen [Endocet] 5-325 mg tablet 1 tab PO Q6H PRN (Reason: pain) Qty: 20 0RF Rx Instructions: continued therapy magnesium oxide 400 mg (241.3 mg magnesium) Tablet 400 mg PO QAM Qty: 30 0RF rifampin 300 mg capsule 300 mg PO Q12H Qty: 80 0RF Continued (DME) miscellaneous medical supply Package See Rx Instructions .ROUTE .MEDSUPPLY Qty: 1 0RF Rx Instructions: CPAP Supplies atorvastatin 40 mg tablet 40 mg PO HS Qty: 90 3RF acetaminophen [Tylenol Extra Strength] 500 mg tablet 1,000 mg PO BID vitamin B complex Capsule 1 cap PO QAM ascorbic acid (vitamin C) [Vitamin C] 500 mg Tablet 500 mg PO QAM cholecalciferol (vitamin D3) [Vitamin D3] 125 mcg (5,000 unit) Tablet 125 mcg PO QAM celecoxib [Celebrex] 200 mg capsule 200 mg PO QAM venlafaxine [Effexor XR] 150 mg capsule,extended release 24hr 150 mg PO QAM clopidogrel [Plavix] 75 mg tablet 75 mg PO QAM tamsulosin [Flomax] 0.4 mg capsule 0.4 mg PO HS pantoprazole [Protonix] 40 mg tablet,delayed release (DR/EC) 40 mg PO QAM bupropion HCl [Wellbutrin XL] 150 mg tablet extended release 24 hr 150 mg PO QAM aspirin 81 mg Tablet,Delayed Release (Dr/Ec) 81 mg PO DAILY diclofenac sodium 1 % Gel 2 g TOPICAL QID PRN (Reason: Pain) Discontinued oxycodone-acetaminophen 5-325 mg tablet 1 tab PO Q6H PRN (Reason: pain) Qty: 30 0RF Discharge Orders: Discharge Order (Routine); Ordered 04/16/22 Ordered By: Chelo Caballero Admission Data Admit Date/Time: 04/10/22 22:58 Attending Provider: Marcus Edge Admit Provider: Mickey Varela Primary Care Provider: Sagar Louise Other Providers: [facility] ; [facility] ; Stanley Read ; Mickey Varela ; Marcus Edge ; Rolanda Choudhury ; aRúl Brewer ; Lisa Us ; Zahra Looney ; Lupe Celestin ; Anahy Nunez ; Lazara Graham ; Lg Rosa ; Dawna Ngo Other Interventions: Discharge Summary Assessment (RN) Last Done: 04/16/22 14:19 Supervising Physician Co-Signing Physician Notes I supervised Chelo Caballero PA-C on the care of this patient. I interviewed and examined the patient independently of her. The plan is as written in her note except for any following changes/exceptions: None 67yo M w/ prosthetic joint infection, now s/p explantation and abx spacer. Will need long-term IV abx. Ready for discharge per orthopedics and ID. Coding Level of Care Code D/C DAY MANAGEMENT >30 MINS Diagnoses Infection of total knee replacement T84.59XA; Z96.659 Sinus tachycardia R00.0 Urinary retention R33.9 CVA (cerebral vascular accident) I63.9 Obstructive sleep apnea G47.33 Hyperlipidemia E78.5 Hypomagnesemia E83.42
== END 2022-04-16 17:36 | DRG 486 ==
LOC: ED 19:20 → 3W 22:58 → SUATTDRO 22:58 → 3W 04-11 00:01

== ENCOUNTER 2023-02-13 07:24 | Observation (INO) ==
--- NOTE | 2023-01-05 16:20 | PAT Medication Instructions ---
Medication Instructions Date of Service January 05, 2023 Home Medications Medication Instructions Recorded miscellaneous medical supply #1 ea 11/02/20 atorvastatin 40 mg tablet 40 mg PO HS #90 tabs 01/28/22 ferrous sulfate 325 mg (65 mg 325 mg PO BIDM #60 tabs 04/16/22 iron) tablet,delayed release bupropion HCl 150 mg 24 hr tablet, See Rx Instructions .Route 08/14/22 extended release .COMPLEX #90 tabs amoxicillin 500 mg tablet 2,000 mg PO ONCE #4 tabs 09/30/22 celecoxib 200 mg capsule (Celebrex) 200 mg PO QAM #90 caps 10/07/22 pantoprazole 40 mg tablet,delayed 40 mg PO QAM #90 tabs 11/11/22 release (Protonix) ascorbic acid (vitamin C) 500 mg tablet (Vitamin C) 500 mg PO QAM vitamin B complex 1 cap PO QAM atorvastatin 40 mg tablet 40 mg PO HS cholecalciferol (vitamin D3) 125 mcg (5,000 unit) tablet (Vitamin D3) 125 mcg PO QAM clopidogrel 75 mg tablet (Plavix) 75 mg PO QAM tamsulosin 0.4 mg capsule (Flomax) 0.4 mg PO HS venlafaxine 150 mg capsule,extended release 24 hr (Effexor XR) 150 mg PO QAM aspirin 81 mg tablet,delayed release 81 mg PO QAM diclofenac sodium 1 % topical gel 2 g topical QID PRN ferrous sulfate 325 mg (65 mg iron) tablet,delayed release 325 mg PO BID bupropion HCl 150 mg 24 hr tablet, extended release See Rx Instructions .Route .COMPLEX acetaminophen 500 mg tablet (Tylenol Extra Strength) 1,000 mg PO BID PRN amoxicillin 500 mg tablet 2,000 mg PO ONCE celecoxib 200 mg capsule (Celebrex) 200 mg PO QAM pantoprazole 40 mg tablet,delayed release (Protonix) 40 mg PO QAM magnesium oxide 400 mg (241.3 mg magnesium) tablet 400 mg PO QPM Continue as directed bupropion HCl 150 mg 24 hr tablet, extended release See Rx Instructions .Route .COMPLEX amoxicillin 500 mg tablet 2,000 mg PO ONCE ASK your surgeon for instructions celecoxib 200 mg capsule (Celebrex) 200 mg PO QAM ASK your prescriber and surgeon clopidogrel 75 mg tablet (Plavix) 75 mg PO QAM(in order for spinal or epidural anesthesia, Plavix needs to be stopped 7 days before surgery. Please check if okay with doctor that prescribes this to you) STOP taking 24 hours before surgery diclofenac sodium 1 % topical gel 2 g topical QID PRN DO NOT take the morning of surgery ascorbic acid (vitamin C) 500 mg tablet (Vitamin C) 500 mg PO QAM vitamin B complex 1 cap PO QAM cholecalciferol (vitamin D3) 125 mcg (5,000 unit) tablet (Vitamin D3) 125 mcg PO QAM ferrous sulfate 325 mg (65 mg iron) tablet,delayed release 325 mg PO BID Take morning of surgery With a small sip of water, OTHERWISE NOTHING TO EAT OR DRINK AFTER MIDNIGHT: venlafaxine 150 mg capsule,extended release 24 hr (Effexor XR) 150 mg PO QAM aspirin 81 mg tablet,delayed release 81 mg PO QAM (unless directed otherwise by surgeon) acetaminophen 500 mg tablet (Tylenol Extra Strength) 1,000 mg PO BID PRN(if needed) pantoprazole 40 mg tablet,delayed release (Protonix) 40 mg PO QAM Take evening before surgery atorvastatin 40 mg tablet 40 mg PO HS tamsulosin 0.4 mg capsule (Flomax) 0.4 mg PO HS ferrous sulfate 325 mg (65 mg iron) tablet,delayed release 325 mg PO BID acetaminophen 500 mg tablet (Tylenol Extra Strength) 1,000 mg PO BID PRN(if needed) magnesium oxide 400 mg (241.3 mg magnesium) tablet 400 mg PO QPM Other Notes If you have any questions please call us at [phone] or [phone] or [phone] or [phone]
--- NOTE | 2023-01-14 11:29 | Anesthesiology Consultation ---
Date of Service January 14, 2023 Assessment & Plan (1) Encounter for pre-operative examination: - left arm restriction. - Case discussed in detail with Dr. Rosales who advised patient is acceptable to proceed with surgery from his standpoint without further evaluation or testing prior to surgery. - PCP 01/09/23 pre-op clearance [place]: "...to have L knee replaced on 02/13/23, Dr Varela, [facility]. scheduled for PAT on 01/14/23, will f/u on results. pending normal testing, he is at acceptable risk to proceed with planned surgery. he will hold ASA and Plavix 7 days prior to surgery..." - Outpatient joint assessment: Patient is currently scheduled for inpatient path way. If re-evaluated pending system levels during current pandemic/surgeon requests outpatient pathway, patient is not recommended candidate for outpatient joint program from anesthesia standpoint. Chart Review Chart Review: Acceptable Risk for Surgery and Patient seen in Pre Admission Testing Teaching & Discussion Pre-Anesthesia Teaching/Discussion Notes: Instructed NPO after midnight before surgery, except medications with 15 cc of water. Medication instructions provided according to the PAT guidelines. History Surgery Operation Date: 02/13/23 07:00 Proposed Procedures p Left Total Knee Arthroplasty - Mickey Varela, DO Height/Weight Height: 6 ft 2 in Weight: 91 kg Allergies Allergy/AdvReac Type Severity Reaction Status Date / Time escitalopram [From Lexapro] AdvReac Mild Drowsy Verified 01/01/23 12:16 paroxetine [From Paxil] AdvReac Mild Drowsy Verified 01/01/23 12:16 Medications Home Medications Medication Instructions Recorded Confirmed Last Taken ascorbic acid (vitamin C) 500 mg 500 mg PO QAM 03/23/20 01/09/23 03/14/22 tablet (Vitamin C) vitamin B complex 1 cap PO QAM 04/09/20 01/09/23 03/14/22 miscellaneous medical supply #1 ea 11/02/20 01/09/23 Unknown atorvastatin 40 mg tablet 40 mg PO HS #90 tabs 01/28/22 01/09/23 03/20/22 19:00 cholecalciferol (vitamin D3) 125 125 mcg PO QAM 02/04/22 01/09/23 03/14/22 mcg (5,000 unit) tablet (Vitamin D3) clopidogrel 75 mg tablet (Plavix) 75 mg PO QAM 02/04/22 01/09/23 03/14/22 tamsulosin 0.4 mg capsule (Flomax) 0.4 mg PO HS 02/04/22 01/09/23 03/20/22 19:00 venlafaxine 150 mg 150 mg PO QAM 02/04/22 01/09/23 06/27/22 05:45 capsule,extended release 24 hr (Effexor XR) aspirin 81 mg tablet,delayed 81 mg PO QAM 04/10/22 01/09/23 Unknown release diclofenac sodium 1 % topical gel 2 g topical QID PRN Pain 04/10/22 01/09/23 Unknown ferrous sulfate 325 mg (65 mg 325 mg PO BIDM #60 tabs 04/16/22 01/09/23 Unknown iron) tablet,delayed release bupropion HCl 150 mg 24 hr tablet, See Rx Instructions .Route 08/14/22 01/09/23 Unknown extended release .COMPLEX #90 tabs acetaminophen 500 mg tablet 1,000 mg PO BID PRN Pain 09/15/22 01/09/23 Unknown (Tylenol Extra Strength) amoxicillin 500 mg tablet 2,000 mg PO ONCE #4 tabs 09/30/22 01/09/23 Unknown celecoxib 200 mg capsule (Celebrex) 200 mg PO QAM #90 caps 10/07/22 01/09/23 Unknown pantoprazole 40 mg tablet,delayed 40 mg PO QAM #90 tabs 11/11/22 01/09/23 Unknown release (Protonix) magnesium oxide 400 mg (241.3 mg 400 mg PO QPM 01/01/23 01/09/23 Unknown magnesium) tablet Past Medical History Medical History (Updated 01/14/23 @ 15:45 by Chen Torres PA-C) Anxiety 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, transferred to [facility] for rehab - Follows Dr. 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 Romero Patient denies h/o seizures, heart attack, heart failure, DM, HTN, or blood transfusions. Exercise / Class Metabolic Activity II 4-5 Yardwork/Stairs/Walk up hill (denies chest discomfort or shortness of breath with 1 FOS) Past Family History Family History Son Type 1 diabetes Mother Dyslipidemia Breast cancer Father Ischemic dilated cardiomyopathy Myocardial infarction Stroke Brother Hypertension Other No family history of adverse response to anesthesia Denies family history of Ovarian cancer Prostate cancer Colorectal cancer Past Surgical History Surgical History (Updated 01/14/23 @ 11:34 by Chen Torres PA-C) H/O arthroscopic knee surgery left with medial meniscus repair H/O hand surgery LEFT INDEX FINGER (TENDON REPAIR) History of carpal tunnel surgery of right wrist History of colonoscopy 2013 and 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 2013 - Tubular Adenoma. History of cystoscopy cystoscopy, stent placement: 03/24/20: MAC sedation at [facility] History of incision and drainage Right Knee 04/12/22 History of loop recorder insert by Dr. Schmitz - 07/2020 - 3 months post CVA - no current issues - follows Dr. Schmitz yearly History of repair of rotator cuff RT History of surgery on right wrist proximal row History of tooth extraction History of urologic surgery rezum S/P foot surgery rt/left S/P revision of total knee (04/2022) right knee revision 04/2022 s/p staph infection. Status post right knee replacement (~03/2022) Past Anesthesia History No Hx of Anesthesia Complications and No Family Hx of Anesthesia Complications History of PONV No Hx of PONV and No Hx of Motion Sickness Social History Smoking Status: Former smoker tobacco type: cigarettes Do You Dip or Chew Tobacco: No Smoking End Date: 50+ years ago Hx Alcohol Use: Yes Alcohol type: beer alcohol intake frequency: holidays/special occasions only Hx Substance Use: No substance use type: does not use Review of Systems Patient denies chest pain, shortness of breath, dyspnea on exertion, reflux, fever, chills, cough, wheezing, dizziness, lightheadedness, presyncope, syncope or palpitations. Physical Exam Vital Signs Vitals BP 133/83 P 72 TEMP 98.3 SP02 97% on RA RESP 17 Physical Full cervical extension range of motion without pain TMD 3.5 finger breadths Mallampati Score 3 Dentition: multiple crowns, denies chipped or loose teeth, caps, implants or bridges Lungs: normal respiratory effort. Good air movement, clear throughout to auscultation, no adventitious breath sounds Cardiac: regular rate and rhythm, no murmurs noted Carotid arteries: negative bruit bilat Lab Results Anesthesia Preop Results Results Anesthesia Widget: WBC 6.12 K/ul (4.8-10.8) 01/09/23 Hgb 14.5 g/dl (14.0-18.0) 01/09/23 Hct 42.3 % (42.0-52.0) 01/09/23 Plt 234 K/uL (130-400) 01/09/23 Na 141 mmol/L (136-145) 01/09/23 K 4.0 mmol/L (3.5-5.1) 01/09/23 Cl 109 mmol/L (98-107) H 01/09/23 CO2 24 mmol/L (21-32) 01/09/23 BUN 19 mg/dl (6-23) 01/09/23 Creat 1.04 mg/dl (0.6-1.4) 01/09/23 Glucose Level 106 mg/dl (70-99(Fasting)) H 01/09/23 PT 11.1 Seconds (9.0-12.0) 01/14/23 PTT 29.5 Seconds (21.0-31.0) 01/14/23 INR 1.0 (0.9-1.1) 01/14/23 TSH 2.304 uIu/ml (0.300-4.500) 01/09/23 Blood Type O Positive 01/14/23 Antibody Screen NEGATIVE 01/14/23 Testing Electrocardiogram Date: 01/14/23 NSR, rate 64 bpm Chest X-Ray Date: 04/10/22 *1view* Emphysematous change with no active disease in the chest Echocardiogram Date: 05/07/22 EF 60-65% Grade I diastolic dysfunction Mild cLVH Mild LA dilatation Other Testing Loop recorder 12/01/22 NSR PVCs Chest CTA 04/11/22 1. No pulmonary emboli identified although exam mildly compromised given suboptimal penetration. 2. No consolidation to suggest pneumonia. Subpleural opacities consistent with atelectasis. 3. No acute intrathoracic findings. Venous doppler 04/10/22 1. No acute DVT within the right lower extremity. 2. A small amount of chronic nonocclusive thrombus within the mid right superficial femoral vein. 3. Complex popliteal cyst. Event monitor 04/11/22 Primary rhythm: sinus rhythm Min HR 59 bpm, avg 89 bpm, max 154 bpm PVC burden 16.8% Ventricular tachycardia: 1217 events, longest event 4 beats, fastest rate 198 bpm, 2.9% trigeminy COVID-19 Risk Screen Screening Information COVID-19 Screen Date: 01/14/23 Exposure 21 Days Family/Household +COVID Last 21 Days: No Exposure 10 Days Any COVID Exposure Last 10 Days: No Symptoms Last 10 Days Experienced COVID Sx Last 10 Days: No + COVID 0-90 Days COVID + in Last 0-90 Days: No
[~2023-02-13 07:24] MED LIST changes: -BUPIVACAINE 0.5 % 5 MG/1 ML PF 10ML VIAL ONE; -Ketorolac (*for OR use only*) 30 MG, dexAMETHasone 4 MG, KETAMINE HCL (**OR use only) 1... INFIL SCH; +LIDOCAINE 2% 2 ML VIAL/AMP(20MG/ML) INFIL ONE; +MIDAZOLAM HCL 1 MG/ML 2ML VIAL ONE; +ONDANSETRON INJ 2 MG/ML 2 ML VIAL ONE; +ORTHO JOINT MIX INFIL SCH; +PROPOFOL IV EMULSION 10 MG/ML 20 ML VIAL IV ONE
--- NOTE | 2023-02-13 07:58 | History & Physical Bridge Note ---
Date of Service February 13, 2023 History & Physical Bridge Note I have examined the patient, reviewed the History & Physical and in the interval since the performance of the History & Physical I have noted the following changes of clinical significance: no changes noted
[2023-02-13] MEDS ORDERED: ePHEDrine sulfate 50 MG/ML AMP IV PRN (08:15)
[2023-02-13] MEDS ORDERED: HYDROmorphone INJ 1 MG/ML SYRINGE IV PRN (08:15)
[2023-02-13] MEDS ORDERED: fentaNYL citrate PF 100 MCG/2 ML VIAL IV PRN (08:15)
[2023-02-13] MEDS ORDERED: ONDANSETRON INJ 2 MG/ML 2 ML VIAL IV PRN ×2 (08:15→11:37)
[2023-02-13] MEDS ORDERED: ATROPINE SULFATE 0.1 MG/ML 10ML SYR IV PRN (08:15)
[2023-02-13] MEDS ORDERED: ORTHO JOINT ANESTHETIC ONE (08:25)
[2023-02-13] MEDS ORDERED: fentaNYL citrate PF 100 MCG/2 ML VIAL ONE (09:10)
--- NOTE | 2023-02-13 10:17 | Operative Report ---
PG Post Operative Report Pre & Post Diagnosis Operation Date: 02/13/23 09:00 Pre-Op Diagnosis: Left Knee Degenerative Joint Disease Post-Op Diagnosis: Left Knee Degenerative Joint Disease I identified the patient and participated in the time-out.: Yes Procedure Operation Date: 02/13/23 09:00 Actual Procedures p Left Total Knee Arthroplasty(Left) - Mickey Varela DO Surgeon Mickey Varela DO Photoengraver Apprentice Mickey Burns PA-C Estimated Blood Loss 30 Findings Consistent with Post-Op Diagnosis Specimens Left femoral tibial bone Description of Procedure Implants used: I used a [employer] Person[employer] total knee arthroplasty system with a size 12 standard PS femur, G tibia, 37 oval patella, and a size 10 CPS polyethylene bearing. All components were cemented in place with Biomet cement. Gary arrived [facility] for the above procedure. He was seen in the preoperative holding area and the operative extremity was identified and signed. He was given a preoperative antibiotic, TXA, a spinal anesthetic and an adductor nerve block. He was taken back to the operating room and laid on the table in supine position. He was given basic sedation. The operative knee was then prepped and draped in sterile fashion. A timeout was done, and the patient and the operative extremity was properly identified. A midline incision was made directly over the patella. Dissection was taken down to the extensor mechanism. A midvastus arthrotomy was used. The medial retinaculum was released and the fat pad was mostly excised. The knee was flexed and the ACL, PCL, and meniscus were removed. A drill was sent down the center of the femoral canal followed by an intramedullary candice. Off that candice a distal femoral cutting block was placed. 9 mm was resected off the distal femur at 5 of valgus. A posterior referencing AP sizing guide was then placed on the distal femur. The femur measured to be a size 12. 2 drill holes were placed in 3 of external rotation. A 4-in-1 cutting block was then impacted into place. Anterior, posterior, and chamfer cuts were then made. The proximal tibia was then exposed. An external tibial alignment guide was placed. A tibial cut guide was then anchored in place and the proximal tibia was then resected. The posterior aspect of the knee was then opened up and any additional meniscus fragments and osteophytes were removed. The tibia measured to be a size G. The tibial plate was then placed in the appropriate rotation and the tibia was drilled and punched. Trial components were then placed. I used a size 10 CPS polyethylene insert. The knee was brought through a full range of motion and felt to be stable. The peg holes for the femoral component were then drilled. The patella was then everted and 9 mm was resected off the posterior aspect of the patella. The patella measured to be a size 37 oval. 3 peg holes were then drilled. A trial patella was placed. The knee was once again brought through a full range of motion and felt to be stable. Trial components were then removed. The surrounding soft tissues were injected with 100 cc of an orthopedic pain control cocktail. All components were then cemented into place with Biomet cement. The final polyethylene insert was then snapped into place. Once cement was dry the tourniquet was deflated. Hemostasis was obtained. Surgiphore Betadine spray was used throughout the knee during the case.. The midvastus arthrotomy was then closed with #1 Vicryl suture. The skin was closed with 2-0 Vicryl, 3-0V lock suture, and iabn. A soft compressive dressing was placed. He was then transferred to a hospital bed and taken to the postanesthesia care unit in stable condition. He tolerated the procedure well. Mickey Burns PA-C, was present for the entire procedure. He was critical for patient positioning, prepping, draping, retraction exposure, wound closure and application of sterile dressing. I attest to the content of the Intraoperative Record and any orders documented therein. Any exceptions are noted below.
--- NOTE | 2023-02-13 11:31 | XRay Report ---
LEFT KNEE 2 VIEWS History: Left total knee arthroplasty. Degenerative arthritis. Postop. FINDINGS: The patient is status post a left total knee arthroplasty. The hardware is intact. No fract ure or dislocation. Skin iban are in place. IMPRESSION: Left total knee arthroplasty. No evidence for hardware complication. ACT 112: Negative or not required by law. Electronically signed by: Moses Ham M.D. 02/13/2023 11:30 AM
--- NOTE | 2023-02-13 11:35 | Anesthesiology Progress Note ---
Date of Service February 13, 2023 Anesthesia Post Procedure Vital Signs Vital Signs: Temp Pulse Pulse Resp BP Pulse Ox O2 Del Method 02/13/23 11:05 36.5 C 85 12 124/76 97 Room Air 02/13/23 10:55 74 12 124/82 96 Oxymask 02/13/23 10:45 88 14 126/77 95 Oxymask 02/13/23 10:35 36.4 C L 74 12 126/86 97 Oxymask 02/13/23 08:24 36.7 C 65 20 157/95 H 94 Room Air O2 Flow Rate 02/13/23 11:05 02/13/23 10:55 3 02/13/23 10:45 3 02/13/23 10:35 6 02/13/23 08:24 Transfer of Care Handoff Completed per policy Notes Mental Status: alert / awake / arousable and participated in evaluation Patient Amnestic to Procedure: Yes Nausea / Vomiting: adequately controlled Pain: adequately controlled Airway Patency, RR, SpO2: stable & adequate BP & HR: stable & adequate Hydration State: stable & adequate Anesthetic Complications: no major complications apparent and Pt Satisfied with anesthetic care
[2023-02-13] MEDS ORDERED: bisacodyL 10 MG SUPP PR PRN (11:37)
[2023-02-13] MEDS ORDERED: oxyCODONE HCL IR 5 MG TAB (IMMEDIATE RELEASE) PO PRN (11:37)
[2023-02-13] MEDS ORDERED: NALOXONE HCL 0.4 MG/1 ML VIAL/CARP IV PRN (11:37)
[2023-02-13] MEDS ORDERED: METOCLOPRAMIDE HCL INJ 5 MG/ML 2 ML VIAL IV PRN (11:37)
[2023-02-13] MEDS ORDERED: SODIUM CHLORIDE 0.9% 1000ML 1,000 ML IV SCH (11:37)
[2023-02-13] MEDS ORDERED: HYDROmorphone INJ 0.5 MG/0.5 ML SYR IV PRN (11:37)
[2023-02-13] MEDS ORDERED: MAGNESIUM HYDROXIDE SUSP 30 ML UDC PO PRN (11:37)
[2023-02-13] MEDS: KETOROLAC TROMETHAMINE 15 MG/ML VIAL IV SCH ×2 (12:11→17:14)
[2023-02-13] MEDS: buPROPion XL 150 MG TABCR PO SCH (12:57)
[2023-02-13] MEDS: ACETAMINOPHEN 500 MG TAB PO SCH ×2 (12:58→22:17)
[2023-02-13] MEDS: ceFAZolin 2000MG 2,000 MG/15 ML SYR IV SCH (17:13)
[2023-02-13] MEDS: FERROUS SULFATE 325 MG TAB PO SCH (17:14)
[2023-02-13] MEDS: ASPIRIN 81 MG ECTAB PO SCH (20:05)
[2023-02-13] MEDS: DOCUSATE SODIUM 100 MG CAP PO SCH (20:06)
[2023-02-13] MEDS ORDERED: ATORVASTATIN 40 MG TAB PO SCH (21:00)
[2023-02-13] MEDS ORDERED: TAMSULOSIN HCL 0.4 MG CAP PO SCH (21:00)
[2023-02-13] MEDS ORDERED: SENNA 8.6 MG TAB PO SCH (21:00)
[2023-02-14] MEDS: KETOROLAC TROMETHAMINE 15 MG/ML VIAL IV SCH ×3 (00:20→12:19)
[2023-02-14] MEDS: ceFAZolin 2000MG 2,000 MG/15 ML SYR IV SCH (00:20)
[2023-02-14] MEDS: ACETAMINOPHEN 500 MG TAB PO SCH (05:58)
[2023-02-14] MEDS ORDERED: dexAMETHasone 4 MG TAB PO SCH (08:00)
--- NOTE | 2023-02-14 08:35 | Orthopedic Progress Note ---
Date of Service February 14, 2023 Assessment & Plan (1) Status post left knee replacement: Overall he is doing very well. He is not having much pain in the left knee. He will be seen by physical therapy today for ambulation and range of motion exercises. He is on aspirin and Plavix for DVT prophylaxis. The nursing staff can change his dressing after physical therapy. He can be discharged home later today. He will follow-up with orthopedics in 2 weeks. Mariana Kaye was seen and examined at bedside this morning. Overall is doing very well. He is not having much pain in the left knee. He has been up and ambulating to the bathroom. He has no complaints.. Review of Systems All systems reviewed & are unremarkable except as noted in HPI & below. Physical Exam On physical examination of the left knee, the dressing is clean and dry. His leg is out full extension. He has a chronic foot drop on the left side.. Results & Data Results & Data Laboratory Results . Diagnostic Findings Postoperative x-rays of the left knee show the prosthesis to be in anatomic alignment without any evidence of fracture, dislocation, or loosening.. PG Care Time/CCT Total # of Minutes Spent Total Time Spent with Patient: Total time spent is greater than 50% in coordination of care (as documented) at patient's floor/unit and/or counseling patient: Coding Level of Care Code 68895 Post Operative Follow-Up Diagnoses Status post left knee replacement Z96.652
--- NOTE | 2023-02-14 08:36 | Discharge Summary ---
Date of Service February 14, 2023 Principal Diagnosis Same as "Discharge Diagnosis" noted below under Discharge Instructions. Discharge Exam On physical examination of the left knee, the dressing is clean and dry. His leg is out full extension. He has a chronic foot drop on the left side.. Discharge Data Procedures Performed Operation Date: 02/13/23 09:00 Actual Procedures p Left Total Knee Arthroplasty(Left) - Mickey Varela DO Ordered Studies 02/13/23 05:00 US - OR guided needle placemen Routine Hospital Course (1) Status post left knee replacement: On February 13, 2023 Vargas arrived at [facility] and underwent a left knee replaced without complication. He had a spinal anesthetic. Postoperatively he was started on aspirin and Plavix for DVT prophylaxis and transferred to the general orthopedic floors. His hospital course was uneventful. On postop day #1, his vital signs were stable and his pain was well controlled. He was able to participate well with physical therapy doing ambulation and range of motion exercises. He was then discharged home. He will follow-up with orthopedics in 2 weeks. PG Care Time/CCT Total # of Minutes Spent Total Time Spent with Patient: Total time spent is greater than 50% in coordination of care (as documented) at patient's floor/unit and/or counseling patient: Discharge Plan Discharge Items Patient Disposition: Home - Home Health Services Reason For Visit: DJD Left Knee Discharge Diagnosis: Left knee replacement Activity: Per Instructions section Non-emergency contact: Surgeon Call non-emergency contact if: your wound has increased redness and your wound has increased drainage Follow-up/Referrals: Sue Dan DO [Primary Care Provider] - Diet: Regular Addtl Attending Provider Instructions: Activity and Therapy Recommendations: * If you are using [facility] then therapy will be provided at your home until they feel you have accomplished all of your goals. * If you are using [facility] then Physical Therapy will be provided until they feel you are ready to start Outpatient Physical Therapy. * If you are not using home therapy then Outpatient Physical Therapy should start about 3-5 days from your day of surgery. Therapy will last about 6-10 weeks * It is important not to put a pillow under your knee when you are relaxing or sleeping. It is just as important to make sure you are getting your knee perfectly straight as it is to regain your knee bend. * You were shown a series of exercises in the hospital. Do these exercises three times each day including the exercises you were shown in physical therapy. * Get up and walk several times each day. For the first four weeks, try not to stand or walk for more than one hour at a time. If you do stand or walk for more than one hour, you will not hurt anything, but your leg will likely swell. * As you feel comfortable, you may change from the walker or crutches to a cane and then to independent walking. Medications: * Narcotic You will likely be sent home from the hospital with a prescription f or the narcotic pain medication that worked best throughout your stay. * Aspirin Most patients will be required to take Aspirin 81mg twice a day for 6 weeks after surgery. This is obtained [id number] and a prescription is not necessary. * Other medications may be prescribed for specific circumstances. If you have any questions, please call the office at . * Resume previous home medications unless otherwise instructed TEDs/Elastic Stockings: The white elastic stockings help limit swelling and prevent blood clots from forming in your legs.~ The more you wear them, the more they work. Wear them for six weeks. Dressing Care: The dressing can be changed after physical therapy on postop day #1. Daily dry dressing changes for a few days, especially if the incision is still draining some. If the incision is not draining then you may leave the iban open to air. If there is a little bit of drainage or if the iban are getting stuck on your clothing then cover the incision with a dry dressing. The iban will be removed at your 2 week follow-up appointment. Showering: You may shower 5 days from the day of surgery as long as the incision is no longer draining. You may shower with the iban exposed. Let soapy water run over the iban and pat them dry. Do not scrub or soak the incision. Things To Watch For: * Drainage from the incision site that occurs more than one week after your surgery. * Increased redness at the incision site. * Fever above 102 degrees Fahrenheit. * Unusual chest pain or shortness of breath. * Call [facility] at with any of the above problems Follow-Up Visit: Follow-up with Dr. Varela's PA (Mickey Burns) 2-3 weeks after your day of surgery. He will remove your iban and answer any questions. If you have any additional questions or concerns, Dr Varela is usually in the office at the same time and will be available An appointment was probably scheduled when you signed-up for surgery in the office. If you have any questions call Office Instructions: More detailed instructions as well as Frequently Asked Questions were provided in a folder by our office when you signed-up for surgery. Please review these instructions when you get home. If you have any further questions or concerns, please feel free to call the office at [phone] Pending Studies at Discharge: No Stand-Alone Forms: My [facility] [place], Smoking Cessation Medications and DC Order Prescriptions: New oxycodone 5 mg Tablet 5 mg PO Q4H PRN (Reason: pain) Qty: 30 0RF Continued (DME) miscellaneous medical supply Package See Rx Instructions .ROUTE .MEDSUPPLY Qty: 1 0RF Rx Instructions: CPAP Supplies atorvastatin 40 mg tablet 40 mg PO HS Qty: 90 3RF bupropion HCl 150 mg tablet extended release 24 hr See Rx Instructions .ROUTE .COMPLEX Qty: 90 3RF Dose Instruction: TAKE 1 TABLET EVERY MORNING Rx Instructions: TAKE 1 TABLET EVERY MORNING amoxicillin 500 mg tablet 2,000 mg PO ONCE Qty: 4 3RF Rx Instructions: 4 tabs 1 hour prior to procedure celecoxib [Celebrex] 200 mg capsule 200 mg PO QAM Qty: 90 3RF pantoprazole [Protonix] 40 mg tablet,delayed release (DR/EC) 40 mg PO QAM Qty: 90 3RF tamsulosin [Flomax] 0.4 mg capsule 0.4 mg PO HS Qty: 90 3RF acetaminophen [Tylenol Extra Strength] 500 mg tablet 1,000 mg PO BID PRN (Reason: Pain) vitamin B complex Capsule 1 cap PO QAM ascorbic acid (vitamin C) [Vitamin C] 500 mg Tablet 500 mg PO QAM magnesium oxide 400 mg (241.3 mg magnesium) tablet 400 mg PO QPM cholecalciferol (vitamin D3) [Vitamin D3] 125 mcg (5,000 unit) Tablet 125 mcg PO QAM venlafaxine [Effexor XR] 150 mg capsule,extended release 24hr 150 mg PO QAM clopidogrel [Plavix] 75 mg tablet 75 mg PO QAM aspirin 81 mg Tablet,Delayed Release (Dr/Ec) 81 mg PO QAM diclofenac sodium 1 % Gel 2 g TOPICAL QID PRN (Reason: Pain) ferrous sulfate 325 mg (65 mg iron) Tablet,Delayed Release (Dr/Ec) 325 mg PO BIDM Qty: 60 0RF Admission Data Admit Date/Time: 02/13/23 10:41 Attending Provider: Mickey Varela Admit Provider: Mickey Varela Primary Care Provider: Sue Dan
[2023-02-14] MEDS ORDERED: VENLAFAXINE HCL XR 150 MG CAPXR PO SCH (09:00)
[2023-02-14] MEDS ORDERED: MULTIVITAMIN TAB PO SCH (09:00)
[2023-02-14] MEDS ORDERED: CLOPIDOGREL BISULFATE 75 MG TAB PO SCH (09:00)
[2023-02-14] MEDS ORDERED: PANTOprazole 40 MG TAB PO SCH (09:00)
[2023-02-14] MEDS: DOCUSATE SODIUM 100 MG CAP PO SCH (09:34)
[2023-02-14] MEDS: ASPIRIN 81 MG ECTAB PO SCH (09:34)
[2023-02-14] MEDS: buPROPion XL 150 MG TABCR PO SCH (09:35)
[2023-02-14] MEDS: FERROUS SULFATE 325 MG TAB PO SCH (09:35)
== END 2023-02-14 12:45 | disposition home health service (06) ==
LOC: ASU 07:24 → 3E 07:24